=== PATIENT | male | born 1970 | race Caucasian/White ===

== ENCOUNTER 2018-01-05 12:17 | Inpatient (IN) | payer OTHER ==
[~2018-01-05] VITALS: Ht 172.7 cm; Wt 99.8 kg
--- NOTE | 2018-01-05 13:00 | ED GI/GU/ABDOMINAL COMPLAINT ---
History of Present Illness General Chief Complaint: Male Genitourinary Problems Stated Complaint: BLOOD IN URINE, ?KIDNEY STONES Source: patient, family Exam Limitations: no limitations Vital Signs & Intake/Output Vital Signs & Intake/Output Vital Signs Date Time Temp Pulse Resp B/P B/P Pulse O2 O2 Flow FiO2 Mean Ox Delivery Rate 01/05 1452 99.0 82 18 149/86 97 Room Air 01/05 1223 98.0 115 20 139/75 98 Room Air Allergies Coded Allergies: NSAIDS (Non-Steroidal Anti-Inflamma (HEMOPHILIA 01/05/18) morphine (SWELLING 01/05/18) Reconcile Medications Amlodipine Besylate 10 MG TABLET 1 TAB PO DAILY BP (Reported) Ascorbate Calcium (Vitamin C) (Unknown Strength) TABLET (Unknown Dose) PO DAILY SUPPLEMENT (Reported) Cholecalciferol (Vitamin D3) (Vitamin D) (Unknown Strength) TABLET (Unknown Dose) PO DAILY SUPPLEMENT (Reported) Duloxetine Hydrochloride (Cymbalta) 30 MG CAPSULE.DR 90 MG PO DAILY NERVE PAIN (Reported) Factor XIII (Corifact) 1,000 UNIT-1,600 UNIT KIT 0 INJ AD PRN BLEEDING ( Reported) Hydroxyzine HCl (hydrOXYzine HCl) 25 MG TABLET 2 TAB PO BID ANXIETY (Reported ) Lisinopril 20 MG TABLET 1 TAB PO DAILY BP (Reported) Oxycodone HCl 5 MG TABLET 1 TAB PO Q4 HRS NEEDED PRN FLANK PAIN .. Suvorexant (Belsomra) 20 MG TABLET 1 TAB PO QPM SLEEP (Reported) Trazodone HCl 50 MG TABLET 1 TAB PO QPM SLEEP (Reported) Vitamin B Complex 1 EACH CAPSULE 1 CAP PO DAILY SUPPLEMENT (Reported) Triage Note: PT TO ED C/O LEFT FLANK RADIATING TO GROIN SINCE THIS AM. H/O KIDNEY STONES. STATES BLOOD IN URINE. PT HAS H/O HEMOPHELIA PT HAS H/O HEMOPHILIA, CANNOT TAKE NSAIDS. Triage Nurses Notes Reviewed? 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 Has had several such episodes in the past, no history of urological procedures, has required admission on several occasions. Denies fever, chills, n/v, chest pain, SOB, abdominal pain, diarrhea , dysuria. Takes Factor VIII PRN bleeding administered by who is a nurse. Primary urologist is in [place] but moved here recently. Past History Travel History Traveled to [place] past 21 day No Medical History Any Pertinent Medical History? see below for history Cardiovascular: hypertension Renal: kidney stones Blood Disorders: hemophilia Surgical History Surgical History: non-contributory Psychosocial History What is your primary language Irish Tobacco Use: Never used ETOH Use: denies use Illicit Drug Use: denies illicit drug use Family History Hx Contributory? No Review of Systems Review of Systems Constitutional: Reports: no symptoms. EENTM: Reports: no symptoms. Respiratory: Reports: no symptoms. Cardiovascular: Reports: no symptoms. GI: Reports: no symptoms. Genitourinary: Reports: no symptoms. Musculoskeletal: Reports: no symptoms. Skin: Reports: no symptoms. Neurological/Psychological: Reports: no symptoms. Hematologic/Endocrine: Reports: no symptoms. Immunologic/Allergic: Reports: no symptoms. All Other Systems: Reviewed and Negative Physical Exam Physical Exam General Appearance: well developed/nourished, moderate distress Head: atraumatic, normal appearance Eyes: Bilateral: normal appearance, normal inspection. Ears, Nose, Throat, Mouth: hearing grossly normal, moist mucous membrane Neck: normal inspection, supple, full range of motion Respiratory: normal breath sounds, chest non-tender, no respiratory distress Cardiovascular: regular rate/rhythm Gastrointestinal: soft, Left CVA tenderness Back: normal inspection, normal range of motion, CVA tenderness (L) Extremities: normal range of motion Neurologic/Psych: awake, alert, oriented x 3, normal mood/affect Skin: intact, normal color, warm/dry Core Measures ACS in differential dx? No Sepsis Present: No Sepsis Focused Exam Completed? No Progress Differential Diagnosis: AAA, AMI, appendicitis, biliary colic, bowel obstruction , colon cancer, cholecystitis, diverticulitis, epididymitis, esophageal varices, gastritis, hepatitis, hernia, hemorrhoids, ischemic bowel, inflamm bowel dis, Manuela-Caty tear, orchitis, pancreatitis, prostatitis, peptic ulcer, PUD/GERD, perforated viscous, pyelonephritis, SBO, STD, testicular torsion, ureterolithiasis, urinary retention, urethritis, UTI/pyelo Plan of Care: Orders Procedure Date/time Status Regular Diet 01/06 B Active ED Holding Orders 01/05 161 Active Admit to inpatient 01/05 1612 Active Vital Signs 01/05 1612 Active Code Status 01/05 1612 Active COMPREHENSIVE METABOLIC PANEL 01/05 1314 Complete CBC WITHOUT DIFFERENTIAL 01/05 1314 Complete CULTURE,URINE 01/05 1310 Active URINALYSIS 01/05 1226 Complete Current Medications Sig/Antonia Start time Last Medication Dose Stop Time Status Admin Non-Formulary 0 SEE ADMIN CRITERIA 01/05 161 UNVr Medication (NON FORMULARY) Laboratory Tests 01/05/18 1333: Anion Gap 9, Estimated GFR > 60, BUN/Creatinine Ratio 13.3, Glucose 84, Calcium 8.8, Total Bilirubin 0.3, AST 16 L, ALT 32, Alkaline Phosphatase 64, Total Protein 5.7 L, Albumin 3.5, Globulin 2.2, Albumin/Globulin Ratio 1.6, CBC w Diff NO MAN DIFF REQ, RBC 4.05 L, MCV 76.5 L, MCH 24.0 L, MCHC 31.4 L, RDW 15.7 H, MPV 6.9 L, Gran % 62.5, Lymphocytes % 22.3, Monocytes % 8.8, Eosinophils % 5.2 H, Basophils % 1.2, Absolute Granulocytes 2.3, Absolute Lymphocytes 0.8 L, Absolute Monocytes 0.3, Absolute Eosinophils 0.2, Absolute Basophils 0 01/05/18 1240: Urine Color BLDY H, Urine Clarity CLDY H, Urine pH 8.0, Ur Specific [place] 1.020, Urine Protein TRACE H, Urine Ketones NEG, Urine Nitrite NEG, Urine Bilirubin NEG, Urine Urobilinogen 0.2, Ur Leukocyte Esterase NEG, Ur Microscopic SEDIMENT EXAMINED, Urine RBC PACKD H, Urine Hemoglobin LARGE H, Urine Glucose NEG Microbiology 01/05 1310 URINE ROUT: Urine Culture - ORD Will admit to medicine. Spoke to Dr. Julien of urology, no acute intervention. SPoke with pharmacy, will give patient's home Factor VIII while inpatient, to be given to pharmacy for nursing administration. Diagnostic Imaging: Viewed by Me: Ultrasound. Discussed w/RAD: Ultrasound. Radiology Impression: PATIENT: LACI FRANCIS PRESENT AGE: 47 PATIENT ACCOUNT NO: [id number] : 70 LOCATION: [facility] ORDERING PHYSICIAN: Micha Hamilton MD SERVICE DATE: 01/05/18-1309 EXAM TYPE: US - US -RENAL/KIDNEY EXAMINATION: US RETROPERITONEAL COMPLETE (RENAL) CLINICAL INFORMATION: Kidney stone history of hemophilia and gross hematuria. Check for obstruction/fluid collection.. COMPARISON: None TECHNIQUE: Real-time imaging of the kidneys and bladder. FINDINGS: RIGHT KIDNEY: 10.8 x 5.9 x 4.3 cm (SAG x AP x TRV). The kidney is normal in size, contour, and echogenicity. Renal cortical thickness is normal. No focal parenchymal lesions. No hydronephrosis. There is a small stone in the upper pole the right kidney measuring 0.3 x 0.2 x 0.2 cm. LEFT KIDNEY: 11.9 x 6.4 x 4.9 cm (SAG x AP x TRV). The kidney is normal in size, contour, and echogenicity. Renal cortical thickness is normal. There is a small stone in the lower pole measuring 0.4 x 0.3 x 0.3 cm. Small cyst is noted in the upper pole measuring 1.5 x 0.9 x 1.4 cm. No hydronephrosis. BLADDER: Well- distended and normal. Bilateral ureteral jets are demonstrated. Prevoid bladder volume is 363 mL. The patient was not able to void and thus a postvoid volume could not be obtained. IMPRESSION: No hydronephrosis or fluid collection. Small nonobstructive bilateral renal calculi. Small left renal cyst. The patient was not able to void and thus a postvoid volume of the bladder could not be obtained.. DICTATED BY: Roger Simons MD DATE/TIME DICTATED:01/05/181456 RELAY ASSOCIATE:PRETTY DATE/TIME TRANSCRIBED:01/05/181456 Initial ED EKG: none Departure Departure Disposition: HOME OR SELF CARE Condition: Stable Clinical Impression Primary Impression: Nephrolithiasis Secondary Impressions: Hemophilia A Referrals: Patient Has No Primary Care Dr (PCP/Family) Departure Forms: Customer Survey General Discharge Information Prescriptions: Current Visit Scripts Oxycodone HCl 1 TAB PO Q4 HRS NEEDED PRN FLANK PAIN #20 TAB .. Admission Note Spoke With: Solitario SHANKS,Marilu Documentation of Exam: Documentation of any treatments & extenuating circumstances including Concerns Regarding Discharge (functional status, medication knowledge or non-compliance, living conditions, etc.) that warrant an admission rather than observation: nephrolithiasis with intractable pain and significant hematuria in the setting of Hemophilia A, will require admission for IV fluids, pain control, IV recombinant Factor VIII, urology and hematology consults, monitoring of Hgb.
[2018-01-05 13:41] LABS: ABSOLUTE BASOPHIL COUNT 0 /CUMM (0.0-0.2); ABSOLUTE EOSINOPHIL COUNT 0.2 /CUMM (0.0-0.7); ABSOLUTE GRANULOCYTE CT 2.3 /CUMM (1.4-6.5); ABSOLUTE LYMPH COUNT 0.8 /CUMM (1.2-3.4); ABSOLUTE MONOCYTE COUNT 0.3 /CUMM (0.10-0.60); BASOPHIL % 1.2 % (0.0-2.0); EOSINOPHIL % 5.2 % (0-5); GRANULOCYTE % 62.5 % (42.2-75.2); MEAN CORPUSCULAR HGB CONC 31.4 G/DL (33.0-37.0); MEAN CORPUSCULAR VOLUME 76.5 FL (80.0-94.0); MEAN PLATELET VOLUME 6.9 FL (7.4-10.4); PLATELET COUNT 329 /CUMM (130-400); RBC DISTRIBUTION WIDTH 15.7 % (11.5-14.5); RED BLOOD CELL CT 4.05 /CUMM (4.70-6.10); WHITE BLOOD CELL COUNT 3.7 /CUMM (4.8-10.8)
--- NOTE | 2018-01-05 15:03 | ULTRASOUND REPORT ---
EXAMINATION: US RETROPERITONEAL COMPLETE (RENAL) CLINICAL INFORMATION: Kidney stone history of hemophilia and gross hematuria. Check for obstruction/fluid collection.. COMPARISON: None TECHNIQUE: Real-time imaging of the kidneys and bladder. FINDINGS: RIGHT KIDNEY: 10.8 x 5.9 x 4.3 cm (SAG x AP x TRV). The kidney is normal in size, contour, and echogenicity. Renal cortical thickness is normal. No focal parenchymal lesions. No hydronephrosis. There is a small stone in the upper pole the right kidney measuring 0.3 x 0.2 x 0.2 cm. LEFT KIDNEY: 11.9 x 6.4 x 4.9 cm (SAG x AP x TRV). The kidney is normal in size, contour, and echogenicity. Renal cortical thickness is normal. There is a small stone in the lower pole measuring 0.4 x 0.3 x 0.3 cm. Small cyst is noted in the upper pole measuring 1.5 x 0.9 x 1.4 cm. No hydronephrosis. BLADDER: Well-distended and normal. Bilateral ureteral jets are demonstrated. Prevoid bladder volume is 363 mL. The patient was not able to void and thus a postvoid volume could not be obtained. IMPRESSION: No hydronephrosis or fluid collection. Small nonobstructive bilateral renal calculi. Small left renal cyst. The patient was not able to void and thus a postvoid volume of the bladder could not be obtained..
[2018-01-05] MEDS ORDERED: LISINOPRIL20 M1 PO (16:21)
[2018-01-05] MEDS ORDERED: AMLODIPINE BESY10 M1 PO (16:21)
[2018-01-05] MEDS ORDERED: BELSOMRA20 M1 PO (16:22)
[2018-01-05] MEDS ORDERED: CYMBALTA30 M1 PO (16:22)
[2018-01-05] MEDS ORDERED: HYDROXYZINE HCL25 M3 PO (16:22)
[2018-01-05] MEDS ORDERED: VITAMIN C500 M6 PO (16:23)
[2018-01-05] MEDS ORDERED: VITAMIN D1000 UNIT PO (16:23)
[2018-01-05] MEDS ORDERED: TRAZODONE HCL50 M1 PO (16:23)
[2018-01-05] MEDS ORDERED: VITAMIN B COMP1 EACH PO (16:24)
--- NOTE | 2018-01-05 16:42 | History & Physical ---
Dillon Chaudhary MD 01/05/18 5730: General Information and HPI MD Statement: I have seen and personally examined LACI FRANCIS and documented this H&P. The patient is a 47 year old M who presented with a patient stated chief complaint of bleeding. Source of Information: patient, family Exam Limitations: no limitations History of Present Illness: 47 year old male with PMH of hemophilia, gastric bypass and recurrent nephrolithiasis presents with complaints of four days of intermittent and progressive left flank pain and hematuria that began yesterday. The patient reports he was first diagnosed with hemophilia in after several complicated hospital courses including 22 unit pRBC transfusion following a charlene en y gastric bypass in [place] and prolonged hospitalization. He also had perioperative hemorrhage with cholecystectomy and liver biopsy. Growing up he frequently had severe slow healing bruising, bleeding with dental care and extractions and frequent nose bleeds. He is one of only two boys in his extended family so the diagnosis was delayed. The patient has had innumerable stones and urological procedures that started shortly after his gastric bypass. He has undergone numerous lithotripsies, stent placements and cystoscopies. He most recently underwent laser lithotripsy and ureteroscopy approximately 4-5 months ago. The patients left flank pain radiates into his groin when he has the urge to urinate and says he has painful gross hematuria associated with urination starting yesterday. He denies any fevers, chills, headache, fatigue dizziness, chest pain, dyspnea, nausea, vomiting, abdominal pain, or diarrhea. Allergies/Medications Allergies: Coded Allergies: NSAIDS (Non-Steroidal Anti-Inflamma (HEMOPHILIA 01/05/18) morphine (SWELLING 01/05/18) Home Med list Amlodipine Besylate 10 MG TABLET 1 TAB PO DAILY BP (Reported) Ascorbate Calcium (Vitamin C) (Unknown Strength) TABLET (Unknown Dose) PO DAILY SUPPLEMENT (Reported) Cholecalciferol (Vitamin D3) (Vitamin D) (Unknown Strength) TABLET (Unknown Dose) PO DAILY SUPPLEMENT (Reported) Duloxetine Hydrochloride (Cymbalta) 30 MG CAPSULE.DR 90 MG PO DAILY NERVE PAIN (Reported) Hydroxyzine HCl (hydrOXYzine HCl) 25 MG TABLET 2 TAB PO BID ANXIETY (Reported ) Lisinopril 20 MG TABLET 1 TAB PO DAILY BP (Reported) Suvorexant (Belsomra) 20 MG TABLET 1 TAB PO QPM SLEEP (Reported) Trazodone HCl 50 MG TABLET 1 TAB PO QPM SLEEP (Reported) Vitamin B Complex 1 EACH CAPSULE 1 CAP PO DAILY SUPPLEMENT (Reported) Compliance With Home Meds: GOOD Past History Travel History Traveled to [place] past 21 day No Medical History Cardiovascular: hypertension Renal: kidney stones Blood Disorders: hemophilia Surgical History Surgical History: cholecystectomy, gastric bypass Past Family/Social History Family History Relations & Conditions if any cousin Hemophilia A Psychosocial History ETOH Use: denies use Illicit Drug Use: denies illicit drug use Exam & Diagnostic Data Last 24 Hrs of Vital Signs/I&O Vital Signs Date Time Temp Pulse Resp B/P B/P Pulse O2 O2 Flow FiO2 Mean Ox Delivery Rate 01/05 1452 99.0 82 18 149/86 97 Room Air 01/05 1223 98.0 115 20 139/75 98 Room Air Intake & Output 01/05 1600 01/05 0800 01/05 0000 Intake Total 1000 Output Total Balance 1000 Intake, IV 1000 Intake, Oral 0 Patient 104.326 kg Weight Weight Reported by Patient Measurement Method Physical Exam General Appearance Alert, Oriented X3, Cooperative, No Acute Distress Cardiovascular Regular Rate, Normal S1, Normal S2, No Murmurs Lungs Clear to Auscultation, Normal Air Movement Abdomen Normal Bowel Sounds, Soft, No Hepatospenomegaly, No Masses, left CVA tenderness, mild LUQ tenderness to deep palpation Extremities No Clubbing, No Cyanosis, No Edema, Normal Pulses Last 24 Hrs of Labs/Joe: Laboratory Tests 01/05/18 1333: Anion Gap 9, Estimated GFR > 60, BUN/Creatinine Ratio 13.3, Glucose 84, Calcium 8.8, Total Bilirubin 0.3, AST 16 L, ALT 32, Alkaline Phosphatase 64, Total Protein 5.7 L, Albumin 3.5, Globulin 2.2, Albumin/Globulin Ratio 1.6, CBC w Diff NO MAN DIFF REQ, RBC 4.05 L, MCV 76.5 L, MCH 24.0 L, MCHC 31.4 L, RDW 15.7 H, MPV 6.9 L, Gran % 62.5, Lymphocytes % 22.3, Monocytes % 8.8, Eosinophils % 5.2 H, Basophils % 1.2, Absolute Granulocytes 2.3, Absolute Lymphocytes 0.8 L, Absolute Monocytes 0.3, Absolute Eosinophils 0.2, Absolute Basophils 0 01/05/18 1240: Urine Color BLDY H, Urine Clarity CLDY H, Urine pH 8.0, Ur Specific [place] 1.020, Urine Protein TRACE H, Urine Ketones NEG, Urine Nitrite NEG, Urine Bilirubin NEG, Urine Urobilinogen 0.2, Ur Leukocyte Esterase NEG, Ur Microscopic SEDIMENT EXAMINED, Urine RBC PACKD H, Urine Hemoglobin LARGE H, Urine Glucose NEG Microbiology 01/05 1310 URINE ROUT: Urine Culture - ORD Diagnostic Data Other Results Renal ultrasound No hydronephrosis or fluid collection. Small nonobstructive bilateral renal calculi. Small left renal cyst. The patient was not able to void and thus a postvoid volume of the bladder could not be obtained. Assessment/Plan Assessment: 47 year old male with PMH of hemophilia, gastric bypass and recurrent nephrolithiasis presents with complaints of four days of intermittent and progressive left flank pain and hematuria that began yesterday. Acute blood loss anemia: h/o hemophilia A obtain coags PTT/PT/INR give recombinant factor VIII nonformulary prescription and repeat coags Trend CBC Monitor for continued bleeding Consider Thomas catheter placement for bladder irrigation Intravascular volume resuscitation with crystalloid, monitor for tachycardia Can check orthostatic blood pressure Hematology consultation placed Nephrolithiasis: Nonobstructing stones on renal ultrasound Urology contacted from the ED, no urgent intervention Parenteral Hydration and analgesia with opioids, NO NSAIDS Outpatient urology follow up Regular diet DVT ppx: ALPs mechanical only with bleeding Full code As Ranked By This Provider Problem List: 1. Nephrolithiasis 2. Hemophilia A 3. Hematuria 4. Acute blood loss anemia Core Measures/Misc (08/12) Acute Coronary Syndrome ACS Diagnosis: No Congestive Heart Failure Congestive Heart Failure Diagnosis No Cerebrovascular Accident CVA/TIA Diagnosis: No VTE (View Protocol) VTE Risk Factors Age>40 No Mechanical VTE Prophylaxis d/t N/A MechProphylax Ordered No VTE Pharm Prophylaxis d/t Medical Contraindication Sepsis (View protocol) Sepsis Present: No Marilu Jerez MD 01/05/18 1806: Attending MD Review Statement Attending Statement Attending MD Statement: examined this patient, discuss w/resident/PA/CHUCKING LATHE OPERATOR, agreed w/resident/PA/CHUCKING LATHE OPERATOR, reviewed EMR data (avail), discussed with nursing, discussed with case mgmt, reviewed images, amended to note Attending Assessment/Plan: 47-year-old male with past medical history significant for hypertension, hemophilia, nephrolithiasis who presented with hematuria. Patient gets these episodes after his gastric bypass 5 years ago when he passes fragments of kidney stones. He started to develop nephrolithiasis after his bypass bilaterally but left more than right. Whenever he passes the stones, it is accompanied with hematuria. He takes recombinant factor VIII which has been prescribed by his faculty member during these episodes. He claims that his is able to get an IV in him at home and give him factor. This time the episode started yesterday and he is complaining of excruciating pain in his left flank area. He is constantly passing blood in the urine with fragments of stone as well as clots. He did report a low-grade fever last night. Currently he is afebrile. He was feeling somewhat nauseous but he wants to eat. Vital Signs Date Time Temp Pulse Resp B/P B/P Pulse O2 O2 Flow FiO2 Mean Ox Delivery Rate 01/05 1731 98.3 87 18 145/92 99 Room Air 01/05 1452 99.0 82 18 149/86 97 Room Air 01/05 1223 98.0 115 20 139/75 98 Room Air on exam; aox3, mild distress 2/2 to pain. cv; s1,s2, rrr resp; clear abd; soft, tender in left flank, bs+ + left CVA tenderness. ext; no edema. Laboratory Tests 01/05 01/05 1755 1333 Chemistry Sodium (137 - 145 mmol/L) 138 Potassium (3.5 - 5.1 mmol/L) 4.5 Chloride (98 - 107 mmol/L) 104 Carbon Dioxide (22 - 30 mmol/L) 26 Anion Gap (5 - 16) 9 BUN (9 - 20 mg/dL) 8 L Creatinine (0.7 - 1.2 mg/dL) 0.6 L Estimated GFR (>60 ml/min) > 60 BUN/Creatinine Ratio (7 - 25 %) 13.3 Glucose (65 - 99 mg/dL) 84 Calcium (8.4 - 10.2 mg/dL) 8.8 Total Bilirubin (0.2 - 1.3 mg/dL) 0.3 AST (17 - 59 U/L) 16 L ALT (21 - 72 U/L) 32 Alkaline Phosphatase (< 127 U/L) 64 Total Protein (6.3 - 8.2 g/dL) 5.7 L Albumin (3.5 - 5.0 g/dL) 3.5 Globulin (1.9 - 4.2 gm/dL) 2.2 Albumin/Globulin Ratio (1.1 - 2.2 %) 1.6 Coagulation PT Pending INR Pending APTT Pending Hematology CBC w Diff NO MAN DIFF REQ WBC (4.8 - 10.8 /CUMM) 3.7 L RBC (4.70 - 6.10 /CUMM) 4.05 L Hgb (14.0 - 18.0 G/DL) 9.7 L Hct (42 - 52 %) 31.0 L MCV (80.0 - 94.0 FL) 76.5 L MCH (27.0 - 31.0 PG) 24.0 L MCHC (33.0 - 37.0 G/DL) 31.4 L RDW (11.5 - 14.5 %) 15.7 H Plt Count (130 - 400 /CUMM) 329 MPV (7.4 - 10.4 FL) 6.9 L Gran % (42.2 - 75.2 %) 62.5 Lymphocytes % (20.5 - 51.1 %) 22.3 Monocytes % (1.7 - 9.3 %) 8.8 Eosinophils % (0 - 5 %) 5.2 H Basophils % (0.0 - 2.0 %) 1.2 Absolute Granulocytes (1.4 - 6.5 /CUMM) 2.3 Absolute Lymphocytes (1.2 - 3.4 /CUMM) 0.8 L Absolute Monocytes (0.10 - 0.60 /CUMM) 0.3 Absolute Eosinophils (0.0 - 0.7 /CUMM) 0.2 Absolute Basophils (0.0 - 0.2 /CUMM) 0 01/05 1240 Urines Urine Color (YEL,AMB,STR) BLDY H Urine Clarity (CLEAR) CLDY H Urine pH (5.0 - 8.0) 8.0 Ur Specific [place] (1.001 - 1.035) 1.020 Urine Protein (NEG,<30 MG/DL) TRACE H Urine Ketones (NEG) NEG Urine Nitrite (NEG) NEG Urine Bilirubin (NEG) NEG Urine Urobilinogen (0.1 - 1.0 EU/dl) 0.2 Ur Leukocyte Esterase (NEG) NEG Ur Microscopic SEDIMENT EXAMINED Urine RBC (0 - 5 /HPF) PACKD H Urine Hemoglobin (NEG) LARGE H Urine Glucose (N MG/DL) NEG Renal US: IMPRESSION: No hydronephrosis or fluid collection. Small nonobstructive bilateral renal calculi. Small left renal cyst. The patient was not able to void and thus a postvoid volume of the bladder could not be obtained. A/P; 47-year-old male with past medical history significant for hypertension, hemophilia, nephrolithiasis, hematuria in the past who is presenting with hematuria and passing renal stones. Patient also has anemia. Baseline H&H is not known. His coagulation studies are pending. Patient will be admitted to medicine floor. His pain will be managed with narcotics. He was given IV Dilaudid which we can continue. We consulted hematology. They give recommendations in terms of giving patient his factor VIII which his is going to bring. We'll monitor his coagulation profile every 4 hours. He can also monitor his CBC frequency. Patient claims that once he receives the factor VIII then episode of hematuria starts to improve. We will monitor the hematuria. Urology will be consulted. Continue the rest of his home medications. Patient will be hydrated with IV fluids. DVT px; ALPS. Full code. David SHANKS,Ismail 01/05/182040: Review of Systems Review of Systems Constitutional: Reports: see HPI. Resident Review Statement Resident Statement: examined this patient, discussed with internet marketing intern, agreed with internet marketing intern Other Findings: 47-year-old male with a past medical history of hypertension, hemophilia, recurrent nephrolithiasis, and hematuria, who presented to the ED complaining of severe left flank pain that started 2 days ago followed by passing stone in urine earlier today. The patient has the same exact presentation have been multiple time in the past. Given that the patient has hemophilia A, he was prescribed factor VIII which she keeps at home in case of active bleeding. Plan * We will admit patient to the general medicine floor * We will check PT, PTT, order blood cross and type * The patient will bring factor VIII from home, we will administration as per hematology recommendation(refer to event note) * We will check CBCs every 8 hours * We will consult urology * We will hold antihypertensive medication until hematuria stopped her blood pressure increase * We will continue the rest of home medications Regular diet DVT prophylaxis with Alps without pharmacological given the active bleed Full code
--- NOTE | 2018-01-05 18:17 | Event Note ---
Event Note Event Note: The patient has hemophilia A, for which she was prescribed factor VIII and he was instructed to go to the ED and to bring factor VIII with him in case of active bleeding. I spoke with casino floor person over the phone in regard of medication administration instructions. Patient will need PTT prior to the administration. PTT should be repeated within 1-4 hours post-administration. PTT is not corrected a second dose should be administered and PTT should be rechecked. The prosthesis should be repeated until PTT correct and bleeding stops.
[2018-01-05 18:18] LABS: PT 10.5 SEC (9.4-12.5); PTT 41 SEC (25-37)
[2018-01-05 20:00] VITALS: BP 138/98
[2018-01-05 23:00] LABS: ABSOLUTE BASOPHIL COUNT 0 /CUMM (0.0-0.2); ABSOLUTE EOSINOPHIL COUNT 0.2 /CUMM (0.0-0.7); ABSOLUTE LYMPH COUNT 1.2 /CUMM (1.2-3.4); ABSOLUTE MONOCYTE COUNT 0.3 /CUMM (0.10-0.60); BASOPHIL % 0.7 % (0.0-2.0); EOSINOPHIL % 5.9 % (0-5); GRANULOCYTE % 53.7 % (42.2-75.2); HEMATOCRIT 28.9 % (42-52); MEAN CORPUSCULAR HGB 24.1 PG (27.0-31.0); MEAN CORPUSCULAR VOLUME 75.3 FL (80.0-94.0); MEAN PLATELET VOLUME 7.3 FL (7.4-10.4); PLATELET COUNT 290 /CUMM (130-400); RBC DISTRIBUTION WIDTH 14.9 % (11.5-14.5); RED BLOOD CELL CT 3.84 /CUMM (4.70-6.10); WHITE BLOOD CELL COUNT 3.8 /CUMM (4.8-10.8)
[2018-01-05 23:08] LABS: PT 10.7 SEC (9.4-12.5); PTT 29 SEC (25-37)
[2018-01-06 03:30] LABS: ABSOLUTE BASOPHIL COUNT 0 /CUMM (0.0-0.2); ABSOLUTE EOSINOPHIL COUNT 0.2 /CUMM (0.0-0.7); ABSOLUTE GRANULOCYTE CT 1.6 /CUMM (1.4-6.5); ABSOLUTE LYMPH COUNT 1.3 /CUMM (1.2-3.4); ABSOLUTE MONOCYTE COUNT 0.3 /CUMM (0.10-0.60); BASOPHIL % 0.9 % (0.0-2.0); EOSINOPHIL % 6.5 % (0-5); GRANULOCYTE % 45.7 % (42.2-75.2); HEMATOCRIT 28.1 % (42-52); MEAN CORPUSCULAR HGB 24.1 PG (27.0-31.0); MEAN CORPUSCULAR HGB CONC 31.7 G/DL (33.0-37.0); MEAN CORPUSCULAR VOLUME 76.1 FL (80.0-94.0); MEAN PLATELET VOLUME 6.7 FL (7.4-10.4); PLATELET COUNT 286 /CUMM (130-400); RBC DISTRIBUTION WIDTH 15.6 % (11.5-14.5); WHITE BLOOD CELL COUNT 3.5 /CUMM (4.8-10.8)
[2018-01-06 03:39] LABS: PT 10.4 SEC (9.4-12.5); PTT 31 SEC (25-37)
[2018-01-06 07:03] VITALS: BP 136/94
[2018-01-06 08:06] LABS: ABSOLUTE BASOPHIL COUNT 0 /CUMM (0.0-0.2); ABSOLUTE EOSINOPHIL COUNT 0.2 /CUMM (0.0-0.7); ABSOLUTE GRANULOCYTE CT 2.1 /CUMM (1.4-6.5); ABSOLUTE LYMPH COUNT 0.9 /CUMM (1.2-3.4); ABSOLUTE MONOCYTE COUNT 0.3 /CUMM (0.10-0.60); BASOPHIL % 0.8 % (0.0-2.0); EOSINOPHIL % 6.9 % (0-5); GRANULOCYTE % 59.3 % (42.2-75.2); HEMATOCRIT 27.7 % (42-52); MEAN CORPUSCULAR HGB 24.6 PG (27.0-31.0); MEAN CORPUSCULAR HGB CONC 32.3 G/DL (33.0-37.0); MEAN CORPUSCULAR VOLUME 76.3 FL (80.0-94.0); MEAN PLATELET VOLUME 7.4 FL (7.4-10.4); PLATELET COUNT 258 /CUMM (130-400); RBC DISTRIBUTION WIDTH 15.6 % (11.5-14.5); RED BLOOD CELL CT 3.63 /CUMM (4.70-6.10); WHITE BLOOD CELL COUNT 3.6 /CUMM (4.8-10.8)
--- NOTE | 2018-01-06 09:05 | PN- Housestaff ---
See Addendum Subjective Follow-up For: hematuria nephrolithiasis hemophilia Subjective: hematuria improved overnight after factor VIII administration x 2 afebrile, still complaining of severe left flank pain Review of Systems Constitutional: Reports: see HPI. Objective Last 24 Hrs of Vital Signs/I&O Vital Signs Date Time Temp Pulse Resp B/P B/P Pulse O2 O2 Flow FiO2 Mean Ox Delivery Rate 01/06 0703 97.8 64 18 136/94 99 01/05 2000 98.0 79 19 138/98 98 Room Air 01/05 1858 97.4 105 18 116/82 98 Room Air 01/05 1731 98.3 87 18 145/92 99 Room Air 01/05 1452 99.0 82 18 149/86 97 Room Air 01/05 1223 98.0 115 20 139/75 98 Room Air Intake & Output 01/06 1600 01/06 0800 01/06 0000 Intake Total 800 440 Output Total 590 Balance 210 440 Intake, IV 800 200 Intake, Oral 240 Number 0 Bowel Movements Output, Urine 590 Patient 99.79 kg Weight Weight Reported by Patient Measurement Method Physical Exam General Appearance: Alert, Oriented X3, Cooperative, No Acute Distress Cardiovascular: Regular Rate, Normal S1, Normal S2, No Murmurs Lungs: Clear to Auscultation, Normal Air Movement Abdomen: Normal Bowel Sounds, Soft, No Tenderness, No Masses, Left CVA tenderness Extremities: No Clubbing, No Cyanosis, No Edema, Normal Pulses Current Medications: Current Medications Sig/Antonia Start time Last Medication Dose Route Stop Time Status Admin Duloxetine HCl 90 MG DAILY 01/06 1000 AC 01/06 PO 1037 Hydromorphone HCl 2 MG Q2 HRS NEEDED PRN 01/05 2200 AC 01/06 IV 1037 Hydromorphone HCl 1 MG Q2 HRS NEEDED PRN 01/05 2100 DC IV Hydromorphone HCl 1 MG Q4P PRN 01/05 1930 DC 01/05 IV 2032 Hydromorphone HCl 2 MG ONCE ONE 01/05 1845 CAN PO 01/05 1846 Hydromorphone HCl 2 MG ONCE PRN 01/05 1845 DC 01/05 IV 01/05 2300 1838 Hydromorphone HCl 0 .STK-MED ONE 01/05 1838 DC .ROUTE Hydromorphone HCl 0 .STK-MED ONE 01/05 1714 DC .ROUTE Hydromorphone HCl 1 MG ONCE ONE 01/05 1700 DC 01/05 IV 01/05 1701 1713 Hydromorphone HCl 0 .STK-MED ONE 01/05 1502 DC .ROUTE Hydromorphone HCl 1 MG ONCE ONE 01/05 1500 DC 01/05 IV 01/05 1501 1507 Hydromorphone HCl 0 .STK-MED ONE 01/05 1406 DC .ROUTE Hydromorphone HCl 1 MG ONCE ONE 01/05 1400 DC 01/05 IV 01/05 1401 1404 Hydromorphone HCl 0 .STK-MED ONE 01/05 1348 DC .ROUTE Hydromorphone HCl 1 MG ONCE ONE 01/05 1330 DC 01/05 IV 01/05 1331 1350 Hydromorphone HCl 0 .STK-MED ONE 01/05 1322 DC .ROUTE Hydromorphone HCl 1 MG ONCE ONE 01/05 1315 DC 01/05 IV 01/05 1316 1324 Hydroxyzine HCl 50 MG BID 01/05 2200 AC 01/06 PO 1037 Non-Formulary 0 SEE ADMIN CRITERIA 01/05 2045 CAN Medication ANY Non-Formulary 0 SEE ADMIN CRITERIA 01/05 204 CAN Medication ANY Non-Formulary 0 SEE ADMIN CRITERIA 01/05 1615 DC Medication ANY Ondansetron HCl 0 .STK-MED ONE 01/05 1321 DC .ROUTE Ondansetron HCl 4 MG ONCE ONE 01/05 1315 DC 01/05 IV 01/05 1316 1324 Sodium Chloride 1,000 ML Q10H 01/05 1715 AC 01/06 IV 0449 Sodium Chloride 1,000 ML BOLUS ONE 01/05 1315 DC 01/05 IV 01/05 1414 1324 Trimethobenzamide HCl 200 MG ONCE ONE 01/06 0500 DC 01/06 IM 01/06 0501 0506 Last 24 Hrs of Lab/Joe Results Last 24 Hrs of Labs/Mics: Laboratory Tests 01/06/18 0615: Anion Gap 9, Estimated GFR > 60, BUN/Creatinine Ratio 11.7, CBC w Diff NO MAN DIFF REQ, RBC 3.63 L, MCV 76.3 L, MCH 24.6 L, MCHC 32.3 L, RDW 15.6 H, MPV 7.4, Gran % 59.3, Lymphocytes % 24.6, Monocytes % 8.4, Eosinophils % 6.9 H, Basophils % 0.8, Absolute Granulocytes 2.1, Absolute Lymphocytes 0.9 L, Absolute Monocytes 0.3, Absolute Eosinophils 0.2, Absolute Basophils 0 01/06/18 0310: PT 10.4, INR 0.99, APTT 31, CBC w Diff NO MAN DIFF REQ, RBC 3.70 L, MCV 76.1 L , MCH 24.1 L, MCHC 31.7 L, RDW 15.6 H, MPV 6.7 L, Gran % 45.7, Lymphocytes % 37.6, Monocytes % 9.3, Eosinophils % 6.5 H, Basophils % 0.9, Absolute Granulocytes 1.6, Absolute Lymphocytes 1.3, Absolute Monocytes 0.3, Absolute Eosinophils 0.2, Absolute Basophils 0 01/05/18 2250: APTT Cancelled, CBC w Diff Cancelled, WBC Cancelled, RBC Cancelled, Hgb Cancelled, Hct Cancelled, MCV Cancelled, MCH Cancelled, MCHC Cancelled, RDW Cancelled, Plt Count Cancelled, MPV Cancelled 01/05/18 2243: PT 10.7, INR 1.02, APTT 29, CBC w Diff NO MAN DIFF REQ, RBC 3.84 L, MCV 75.3 L , MCH 24.1 L, MCHC 32.0 L, RDW 14.9 H, MPV 7.3 L, Gran % 53.7, Lymphocytes % 31.5, Monocytes % 8.2, Eosinophils % 5.9 H, Basophils % 0.7, Absolute Granulocytes 2.0, Absolute Lymphocytes 1.2, Absolute Monocytes 0.3, Absolute Eosinophils 0.2, Absolute Basophils 0 01/05/18 1755: PT 10.5, INR 1.00, APTT 41 H 01/05/18 1333: Anion Gap 9, Estimated GFR > 60, BUN/Creatinine Ratio 13.3, Glucose 84, Calcium 8.8, Total Bilirubin 0.3, AST 16 L, ALT 32, Alkaline Phosphatase 64, Total Protein 5.7 L, Albumin 3.5, Globulin 2.2, Albumin/Globulin Ratio 1.6, CBC w Diff NO MAN DIFF REQ, RBC 4.05 L, MCV 76.5 L, MCH 24.0 L, MCHC 31.4 L, RDW 15.7 H, MPV 6.9 L, Gran % 62.5, Lymphocytes % 22.3, Monocytes % 8.8, Eosinophils % 5.2 H, Basophils % 1.2, Absolute Granulocytes 2.3, Absolute Lymphocytes 0.8 L, Absolute Monocytes 0.3, Absolute Eosinophils 0.2, Absolute Basophils 0 01/05/18 1240: Urine Color BLDY H, Urine Clarity CLDY H, Urine pH 8.0, Ur Specific [place] 1.020, Urine Protein TRACE H, Urine Ketones NEG, Urine Nitrite NEG, Urine Bilirubin NEG, Urine Urobilinogen 0.2, Ur Leukocyte Esterase NEG, Ur Microscopic SEDIMENT EXAMINED, Urine RBC PACKD H, Urine Hemoglobin LARGE H, Urine Glucose NEG Microbiology 01/05 1240 URINE ROUT: Urine Culture - RES Assessment/Plan Assessment: 47 year old male with PMH of hemophilia, gastric bypass and recurrent nephrolithiasis presents with complaints of four days of intermittent and progressive left flank pain and hematuria that began yesterday. Acute blood loss anemia: h/o hemophilia A PTT elevated at 41 on presentation, PT/INR wnl Type and screen, no need for transfusion at this time give recombinant factor VIII x 2 administrations overnight PTT corrected after administration CBC 9.7 on presentation to 8.9 this monring Monitor for continued bleeding Intravascular volume resuscitation with crystalloid Afebrile, no tachycardia or hypotension Hematology consultation placed Nephrolithiasis: Nonobstructing stones on renal ultrasound Urology contacted from the ED, no urgent intervention Parenteral Hydration and analgesia with opioids, NO NSAIDS Outpatient urology follow up Urine culture negative, no antibiotics Continue analgesia dilaudid 2mg IV Q2H PRN Regular diet DVT ppx: ALPs mechanical only with bleeding Full code Problem List: 1. Nephrolithiasis 2. Hemophilia A 3. Hematuria 4. Acute blood loss anemia Pain Ratin Pain Location: left flank Pain Goal: Pain 4 or less Pain Plan: prn Tomorrow's Labs & Rationales: cbc, bep
[2018-01-06 14:52] VITALS: BP 130/82
--- NOTE | 2018-01-06 16:15 | RADIOLOGY REPORT ---
EXAMINATION: ABDOMEN 1 VIEW CLINICAL INFORMATION: Abdominal pain. COMPARISON: None. TECHNIQUE: An AP view of the abdomen is provided. FINDINGS: There is a moderate amount of stool throughout the colon. There are no dilated loops of small bowel. There are no air-fluid levels. No renal calculi are demonstrable. The visualized lung bases are clear. The osseous structures are unremarkable. IMPRESSION: Moderate amount of stool throughout the colon. No evidence for obstruction.
[2018-01-06 18:42] LABS: ABSOLUTE BASOPHIL COUNT 0 /CUMM (0.0-0.2); ABSOLUTE EOSINOPHIL COUNT 0.4 /CUMM (0.0-0.7); ABSOLUTE LYMPH COUNT 1.3 /CUMM (1.2-3.4); ABSOLUTE MONOCYTE COUNT 0.4 /CUMM (0.10-0.60); BASOPHIL % 0.8 % (0.0-2.0); EOSINOPHIL % 7.1 % (0-5); GRANULOCYTE % 59.2 % (42.2-75.2); HEMATOCRIT 31.4 % (42-52); MEAN CORPUSCULAR HGB 24.3 PG (27.0-31.0); MEAN CORPUSCULAR HGB CONC 31.6 G/DL (33.0-37.0); MEAN CORPUSCULAR VOLUME 76.8 FL (80.0-94.0); MEAN PLATELET VOLUME 7.7 FL (7.4-10.4); PLATELET COUNT 304 /CUMM (130-400); RBC DISTRIBUTION WIDTH 15.4 % (11.5-14.5); RED BLOOD CELL CT 4.08 /CUMM (4.70-6.10)
[2018-01-06 21:41] VITALS: BP 122/80
--- NOTE | 2018-01-06 23:11 | Cons- Urology ---
General Information and HPI Consulting Request Date of Consult: 01/06/18 Requested By: Marilu Jerez MD Reason for Consult: Gross hematuria and kidney stones Source of Information: patient Exam Limitations: no limitations History of Present Illness: Patient is a 47-year-old hemophiliac with a history of recurrent kidney stones after gastric bypass. He presented to the ER yesterday complaining of gross hematuria and left flank pain. He has had numerous radiological evaluations including CT scans. He has had multiple urological procedures including lithotripsy and ureteroscopy. Does describe left flank pain radiating to his left groin. He denies any fever/ chills or nausea/vomiting. Allergies/Medications Allergies: Coded Allergies: NSAIDS (Non-Steroidal Anti-Inflamma (HEMOPHILIA 01/05/18) morphine (SWELLING 01/05/18) Home Med List: Amlodipine Besylate 10 MG TABLET 1 TAB PO DAILY BP (Reported) Ascorbate Calcium (Vitamin C) (Unknown Strength) TABLET (Unknown Dose) PO DAILY SUPPLEMENT (Reported) Cholecalciferol (Vitamin D3) (Vitamin D) (Unknown Strength) TABLET (Unknown Dose) PO DAILY SUPPLEMENT (Reported) Duloxetine Hydrochloride (Cymbalta) 30 MG CAPSULE.DR 90 MG PO DAILY NERVE PAIN (Reported) Hydroxyzine HCl (hydrOXYzine HCl) 25 MG TABLET 2 TAB PO BID ANXIETY (Reported ) Lisinopril 20 MG TABLET 1 TAB PO DAILY BP (Reported) Suvorexant (Belsomra) 20 MG TABLET 1 TAB PO QPM SLEEP (Reported) Trazodone HCl 50 MG TABLET 1 TAB PO QPM SLEEP (Reported) Vitamin B Complex 1 EACH CAPSULE 1 CAP PO DAILY SUPPLEMENT (Reported) Current Medications: Current Medications Sig/Antonia Start time Last Medication Dose Route Stop Time Status Admin Duloxetine HCl 90 MG DAILY 01/06 1000 AC 01/06 PO 1037 Hydromorphone HCl 2 MG Q2 HRS NEEDED PRN 01/05 2200 AC 01/06 IV 2105 Hydroxyzine HCl 50 MG BID 01/05 220 AC 01/06 PO 2105 Sodium Chloride 1,000 ML Q10H 01/05 1715 AC 01/06 IV 1705 Trimethobenzamide HCl 200 MG ONCE ONE 01/06 0500 DC 01/06 IM 01/06 0501 0506 Past History Medical History Blood Transfusion Hx: Yes Type of Reaction: Rash/Dermatitis Neurological: migraine EENT: NONE Cardiovascular: hypertension Respiratory: NONE Gastrointestinal: NONE Hepatic: "CLOT ON LIVER" PER PT Renal: kidney stones Musculoskeletal: NONE Psychiatric: anxiety, depression Endocrine: NONE Blood Disorders: hemophilia Cancer(s): NONE 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 Home Services at Home: None Smoking Status: Unknown If Ever Smoked ETOH Use: denies use Illicit Drug Use: denies illicit drug use Review of Systems Review of Systems: See HPI Exam & Diagnostic Data Vital Signs and I&O Vital Signs Date Time Temp Pulse Resp B/P B/P Pulse O2 O2 Flow FiO2 Mean Ox Delivery Rate 01/06 2141 98.6 82 20 122/80 99 Room Air 01/06 1452 98.4 80 20 130/82 97 01/06 0703 97.8 64 18 136/94 99 Intake & Output 01/06 1600 01/06 0800 01/06 0000 01/05 1600 01/05 0800 01/05 0000 Intake Total 1500 458 355 6215 Output Total 590 Balance 1500 050 243 3472 Intake, IV 800 118 706 9372 Intake, Oral 700 240 0 Number 0 Bowel Movements Output, Urine 590 Patient 220 lb 230 lb Weight Weight Reported by Patient Reported by Patient Measurement Method Physical Exam: Obese, soft and nontender. No CVA tenderness. Physical Exam General Appearance: well developed/nourished Head: atraumatic Assessment/Plan Assessment/Plan Gross hematuria, which appears to be resolving after receiving treatment for his hemophilia. His renal ultrasound reveals bilateral small renal stones, but no hydronephrosis. His KUB was done today is negative. At this point, no intervention is warranted for his kidney stones. There is no evidence of obstruction and I suspect his pain will resolve. This possibly is clot colic. This should resolve spontaneously. Dr. Barrett will follow up with the patient. Consult Acknowledgment - Thank you for your consult request.
[2018-01-07 06:58] VITALS: BP 120/94; BP 140/82
[2018-01-07 08:11] LABS: ABSOLUTE BASOPHIL COUNT 0 /CUMM (0.0-0.2); ABSOLUTE EOSINOPHIL COUNT 0.3 /CUMM (0.0-0.7); ABSOLUTE GRANULOCYTE CT 1.8 /CUMM (1.4-6.5); ABSOLUTE LYMPH COUNT 1.3 /CUMM (1.2-3.4); ABSOLUTE MONOCYTE COUNT 0.4 /CUMM (0.10-0.60); BASOPHIL % 0.9 % (0.0-2.0); EOSINOPHIL % 7.4 % (0-5); GRANULOCYTE % 46.4 % (42.2-75.2); HEMATOCRIT 30.3 % (42-52); MEAN CORPUSCULAR HGB 24.4 PG (27.0-31.0); MEAN CORPUSCULAR HGB CONC 31.9 G/DL (33.0-37.0); MEAN CORPUSCULAR VOLUME 76.4 FL (80.0-94.0); MEAN PLATELET VOLUME 7.4 FL (7.4-10.4); PLATELET COUNT 271 /CUMM (130-400); RBC DISTRIBUTION WIDTH 15.5 % (11.5-14.5); RED BLOOD CELL CT 3.96 /CUMM (4.70-6.10); WHITE BLOOD CELL COUNT 3.9 /CUMM (4.8-10.8)
--- NOTE | 2018-01-07 08:52 | PN- Housestaff ---
Jet SHANKS,Dillon 01/07/18 0852: Subjective Follow-up For: hemophilia hematuria nephrolithiasis Subjective: feeling much better, still complaining of some back pain afebrile passed a clot in his urine overnight requiring prn pain meds frequently Review of Systems Constitutional: Reports: see HPI. Objective Last 24 Hrs of Vital Signs/I&O Vital Signs Date Time Temp Pulse Resp B/P B/P Pulse O2 O2 Flow FiO2 Mean Ox Delivery Rate 01/07 0658 98.0 63 20 140/82 98 01/06 2141 98.6 82 20 122/80 99 Room Air 01/06 1452 98.4 80 20 130/82 97 Intake & Output 01/07 1600 01/07 0800 01/07 0000 Intake Total 800 300 Output Total Balance 800 300 Intake, IV 800 300 Physical Exam General Appearance: Alert, Oriented X3, Cooperative, No Acute Distress Cardiovascular: Regular Rate, Normal S1, Normal S2, No Murmurs Lungs: Clear to Auscultation, Normal Air Movement Abdomen: Normal Bowel Sounds, Soft, No Tenderness, No Masses, Left cva tenderness Extremities: No Clubbing, No Cyanosis, No Edema, Normal Pulses Current Medications: Current Medications Sig/Antonia Start time Last Medication Dose Route Stop Time Status Admin Duloxetine HCl 90 MG DAILY 01/06 1000 DCD 01/07 PO 0911 Hydromorphone HCl 1 MG Q4 HRS NEEDED PRN 01/07 0730 DCD 01/07 IV 1003 Hydromorphone HCl 2 MG Q2 HRS NEEDED PRN 01/05 2200 DC 01/07 IV 0708 Hydroxyzine HCl 50 MG BID 01/05 2200 DCD 01/07 PO 0911 Oxycodone HCl 10 MG Q12 01/07 1000 DCD 01/07 PO 01/08 1001 0911 Sodium Chloride 1,000 ML Q10H 01/05 1715 DCD 01/07 IV 0511 Last 24 Hrs of Lab/Joe Results Last 24 Hrs of Labs/Mics: Laboratory Tests 01/07/18 07: Anion Gap 10, Estimated GFR > 60, BUN/Creatinine Ratio 11.7, CBC w Diff NO MAN DIFF REQ, RBC 3.96 L, MCV 76.4 L, MCH 24.4 L, MCHC 31.9 L, RDW 15.5 H, MPV 7.4, Gran % 46.4, Lymphocytes % 34.8, Monocytes % 10.5 H, Eosinophils % 7.4 H, Basophils % 0.9, Absolute Granulocytes 1.8, Absolute Lymphocytes 1.3, Absolute Monocytes 0.4, Absolute Eosinophils 0.3, Absolute Basophils 0 01/06/18 1705: CBC w Diff NO MAN DIFF REQ, RBC 4.08 L, MCV 76.8 L, MCH 24.3 L, MCHC 31.6 L, RDW 15.4 H, MPV 7.7, Gran % 59.2, Lymphocytes % 24.8, Monocytes % 8.1, Eosinophils % 7.1 H, Basophils % 0.8, Absolute Granulocytes 3.0, Absolute Lymphocytes 1.3, Absolute Monocytes 0.4, Absolute Eosinophils 0.4, Absolute Basophils 0 Assessment/Plan Assessment: 47 year old male with PMH of hemophilia, gastric bypass and recurrent nephrolithiasis presents with complaints of four days of intermittent and progressive left flank pain and hematuria that began yesterday. Acute blood loss anemia: h/o hemophilia A PTT elevated at 41 on presentation, PT/INR wnl Type and screen, no need for transfusion at this time give recombinant factor VIII x 2 administrations PTT corrected after administration CBC table Monitor for continued bleeding Intravascular volume resuscitation with crystalloid Afebrile, no tachycardia or hypotension Hematology consultation placed Nephrolithiasis: Nonobstructing stones on renal ultrasound Urology contacted from the ED, no urgent intervention Parenteral Hydration and analgesia with opioids, NO NSAIDS Outpatient urology follow up Urine culture negative, no antibiotics Start oxycodone CR 10mg Q12 and 1mg IV dilaudid Q4H prn Regular diet DVT ppx: ALPs mechanical only with bleeding Full code Stable for discharge with urology follow up and analgesia, CBC stable not continuing to bleed Problem List: 1. Nephrolithiasis 2. Hemophilia A 3. Hematuria 4. Acute blood loss anemia Pain Ratin Pain Location: left flank Pain Goal: Pain 4 or less Pain Plan: prn Tomorrow's Labs & Rationales: none, discharge Micha Hamilton MD 01/07/18 1211: Attending MD Review Statement Attending Statement Attending MD Statement: examined this patient, discuss w/resident/PA/[facility], agreed w/resident/PA/[facility], reviewed EMR data (avail) Attending Assessment/Plan: Pain has resolved, passed two clots yesterday. Patient feels well and wishes to go home. After taking his Factor VIII, he has had no further bleeding. Stable for discharge home, will continue his Factor VIII, will give Oxycodone for any further pain as well as outpatient urology follow up.
[2018-01-07] MEDS ORDERED: [UNRECOGNIZED DRUG - OTHER] INJ ×2 (09:05→09:06)
[2018-01-07] MEDS ORDERED: OXYCODONE HCL5 M1 PO ×3 (09:07→10:50)
--- NOTE | 2018-01-07 09:09 | Patient Discharge Instructions ---
Discharge Instructions General Discharge Information You were seen/treated for: Kidney stones and bleeding Special Instructions: Follow up with your primary care physician, Dr. Ortiz and Dr. Barrett (urology) within 2 weeks of discharge. Please return to the hospital for continuing bleeding. Acute Coronary Syndrome Inclusion Criteria At DC or during hospital stay patient has or had the following: ACS DIAGNOSIS No Discharge Core Measures Meds if any: Prescribed or Continued at Discharge Meds if any: NOT Prescribed or Continued at Discharge Congestive Heart Failure Inclusion Criteria At DC or during hospital stay patient has or had the following: CHF DIAGNOSIS No Discharge Core Measures Meds if any: Prescribed or Continued at Discharge Meds if any: NOT Prescribed or Continued at Discharge Cerebrovascular accident Inclusion Criteria At DC or during hospital stay patient has or had the following: CVA/TIA Diagnosis No Discharge Core Measures Meds if any: Prescribed or Continued at Discharge Meds if any: NOT Prescribed or Continued at Discharge Venous thromboembolism Inclusion Criteria VTE Diagnosis No VTE Type NONE VTE Confirmed by (Test) NONE Discharge Core Measures - Per Current guidelines, there needs to be overlap - treatment for the first 5 days of Warfarin therapy. - If discharged on Warfarin prior to 5 days of - overlap therapy, the patient will need to be - assessed for post discharge needs including - *Post discharge parental anticoagulation - *Warfarin and/or parental anticoagulation education - *Follow up date to check INR post discharge At least 5 days overlap therapy as Inpatient No Meds if any: Prescribed or Continued at Discharge Note: Overlap Therapy is Warfarin and Anticoagulant Meds if any: NOT Prescribed or Continued at Discharge
== END 2018-01-07 12:30 | DRG 693 ==
LOC: ERH 12:17 → 2NB 16:12 → ERHI 16:12 → ENRESERV 17:23 → ENTRNSPT 18:49 → 2NB 19:43 → CMPTRNSPT 19:44 → 2NB 01-07 08:56 → ENPENDDIS 01-07 10:51 → 2NB 01-07 12:30
PROVIDERS: Internal Medicine; Student in an Organized Health Care Education/Training Program
DX: N20.0 Calculus of kidney (principal); D66 Hereditary factor VIII deficiency; D62 Acute posthemorrhagic anemia; R31.0 Gross hematuria; E66.9 Obesity, unspecified; Z68.33 Body mass index [BMI] 33.0-33.9, adult; I10 Essential (primary) hypertension; Z87.442 Personal history of urinary calculi; Z98.84 Bariatric surgery status
CPT/HCPCS: 2NBP; 36415; 74018; 76775; 81001; 82436; 87086; 93005; 93010; J2405; J3250

== ENCOUNTER 2018-01-20 17:15 | Emergency (ER) | payer SELFPAY ==
[~2018-01-20] VITALS: Ht 172.7 cm; Wt 104.3 kg
[~2018-01-20 17:15] MED LIST: AMLODIPINE BESY10 M1 PO; BELSOMRA20 M1 PO; CYMBALTA30 M1 PO; HYDROXYZINE HCL25 M3 PO; LISINOPRIL20 M1 PO; OXYCODONE HCL5 M1 PO; TRAZODONE HCL100 M1 PO; TRAZODONE HCL50 M1 PO; VITAMIN B COMP1 EACH PO; VITAMIN C500 M6 PO; VITAMIN D1000 UNIT PO; [UNRECOGNIZED DRUG - OTHER] INJ
[2018-01-20 17:17] VITALS: BP 113/87
== END 2018-01-20 18:30 | disposition admitted as inpatient to this hospital (09) ==
LOC: ERH 17:15
DX: R31.9 Hematuria, unspecified (principal)
CPT/HCPCS: 87086

== ENCOUNTER 2018-02-06 10:53 | Observation (INO) | payer OTHER ==
[~2018-02-06] VITALS: Ht 172.7 cm; Wt 106.4 kg
--- NOTE | 2018-02-06 11:45 | ED GENERAL ADULT ---
History of Present Illness General Chief Complaint: Male Genitourinary Problems Stated Complaint: BLD IN URINE Source: patient Exam Limitations: no limitations Vital Signs & Intake/Output Vital Signs & Intake/Output Vital Signs Date Time Temp Pulse Resp B/P B/P Pulse O2 O2 Flow FiO2 Mean Ox Delivery Rate 02/06 1659 98.1 92 18 122/74 99 Room Air 02/06 1526 98.0 98 18 120/77 99 Room Air 02/06 1301 97.2 106 18 128/74 99 Room Air 02/06 1204 98 Room Air 02/06 1113 98.8 121 20 136/97 99 Room Air Allergies Coded Allergies: acetaminophen (Severe, LIVER BLEEDING 01/20/18) adhesive (Intermediate, SKIN IRRITATION 02/06/18) NSAIDS (Non-Steroidal Anti-Inflamma (HEMOPHILIA 01/11/18) morphine (SWELLING 01/11/18) Reconcile Medications Amlodipine Besylate 10 MG TABLET 1 TAB PO DAILY BP (Reported) Ascorbate Calcium (Vitamin C) (Unknown Strength) TABLET (Unknown Dose) PO DAILY SUPPLEMENT (Reported) Cholecalciferol (Vitamin D3) (Vitamin D) (Unknown Strength) TABLET (Unknown Dose) PO DAILY SUPPLEMENT (Reported) Duloxetine Hydrochloride (Cymbalta) 30 MG CAPSULE.DR 90 MG PO DAILY NERVE PAIN (Reported) Factor XIII (Corifact) 1,000 UNIT-1,600 UNIT KIT 0 INJ AD PRN BLEEDING ( Reported) Hydroxyzine HCl (hydrOXYzine HCl) 25 MG TABLET 2 TAB PO BID ANXIETY (Reported ) Lisinopril 20 MG TABLET 1 TAB PO DAILY BP (Reported) Oxycodone HCl 5 MG TABLET 1 TAB PO BIDP PRN pain Suvorexant (Belsomra) 20 MG TABLET 1 TAB PO QPM SLEEP (Reported) Trazodone HCl 100 MG TABLET 1 TAB PO QPM SLEEP (Reported) Vitamin B Complex 1 EACH CAPSULE 1 CAP PO DAILY SUPPLEMENT (Reported) Triage Note: PT TO ER C/C RIGHT FLANK PAIN X 48 HRS W/ BRB. HX OF HEMOPHILIA AND KIDNEY STONES. +DYSURIA +NAUSEA Triage Nurses Notes Reviewed? yes Onset: Abrupt Duration: day(s):, constant, getting worse Timing: recent history Injury Environment: home No Modifying Factors: none HPI: 47-year-old male comes into the emergency room for further evaluation of multiple complaints. He has left flank pain wrapping around his abdomen and the blood in his urine. He has had some intermittent chest pain. Denies any fever chills. Intermittent vomiting. Pain is not being managed at home. He has a history of gastric bypass surgery as well as a history of factor VIII deficiency. Patient reports that he has required blood transfusions in the past. He's had increased gross amount of blood in his urine. He was recently admitted to the hospital here for a kidney stones and evaluation by urology. He currently has no insurance due to the fact they just moved from [place] and is in the process of getting [employer] [facility] [place]. (Dakota Anguiano) Past History Travel History Traveled to [facility] past 21 day No Medical History Any Pertinent Medical History? 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 No (Dakota Anguiano) Review of Systems Review of Systems Constitutional: Reports: no symptoms. EENTM: Reports: no symptoms. Respiratory: Reports: no symptoms. Cardiovascular: Reports: no symptoms. GI: Reports: no symptoms. Genitourinary: Reports: see HPI. Musculoskeletal: Reports: no symptoms. Skin: Reports: no symptoms. Neurological/Psychological: Reports: no symptoms. Hematologic/Endocrine: Reports: no symptoms. Immunologic/Allergic: Reports: no symptoms. All Other Systems: Reviewed and Negative (Dakota Anguiano) Physical Exam Physical Exam General Appearance: well developed/nourished, alert, awake, moderate distress Head: atraumatic, normal appearance Eyes: Bilateral: normal appearance, EOMI. Ears, Nose, Throat: normal ENT inspection, hearing grossly normal Neck: normal inspection Respiratory: normal breath sounds, no respiratory distress Cardiovascular: regular rate/rhythm, tachycardia Gastrointestinal: soft Back: normal inspection, CVA tenderness (L) Extremities: normal inspection, no edema Neurologic/Psych: awake, alert, oriented x 3 Skin: intact, normal color Core Measures ACS in differential dx? Yes CVA/TIA Diagnosis: No Sepsis Present: No Sepsis Focused Exam Completed? No (Dakota Anguiano) Progress Differential Diagnoses I considered the following diagnoses in my evaluation of the patient: Kidney stone, IN, PE, UTI, pyelonephritis, orthostatic hypotension, cardiac arrhythmia, Plan of Care: Orders Procedure Date/time Status Heart Healthy Diet 02/06 D Active Patient Data 02/[address] in observation 02/06 1443 Active ED Holding Orders 02/06 1443 Active Vital Signs 02/06 1443 Active Code Status 02/06 1443 Active Intake & Output 02/06 1202 Active TYPE & SCREEN (NOT X-MATCH) 02/06 1144 Complete TROPONIN LEVEL 02/06 1135 Complete PARTIAL THROMBOPLASTIN TIME 02/06 1135 Complete PROTHROMBIN TIME 02/06 1135 Complete COMPREHENSIVE METABOLIC PANEL 02/06 1135 Complete CBC WITHOUT DIFFERENTIAL 02/06 1135 Complete CULTURE,URINE 02/06 1114 Active URINALYSIS 02/06 1114 Complete EKG 02/06 1114 Active Telemetry/Mechanical Drafter 02/06 UNK Active Current Medications Sig/Antonia Start time Last Medication Dose Stop Time Status Admin Hydromorphone HCl 2 MG ONCE PRN 02/06 1215 AC 02/06 (Dilaudid) 02/06 1815 1215 Hydromorphone HCl 1 MG ONCE ONE 02/06 1200 CAN (Dilaudid) 02/06 1201 Laboratory Tests 02/06/18 1257: Urine Color ORANG H, Urine Clarity HAZY H, Urine pH 6.0, Ur Specific [place] 1.025, Urine Protein 30 H, Urine Ketones NEG, Urine Nitrite NEG, Urine Bilirubin NEG, Urine Urobilinogen 1.0, Ur Leukocyte Esterase NEG, Ur Microscopic SEDIMENT EXAMINED, Urine RBC >75 H, Ur Epithelial Cells RARE, Urine Crystals 1+ CA OX H, Urine Mucus FEW, Urine Hemoglobin LARGE H, Urine Glucose 250 H 02/06/18 1151: Anion Gap 9, Estimated GFR > 60, BUN/Creatinine Ratio 8.6, Glucose 89, Calcium 9.4, Total Bilirubin 0.6, AST 16 L, ALT 33, Alkaline Phosphatase 61, Troponin I < 0.01, Total Protein 6.0 L, Albumin 3.7, Globulin 2.3, Albumin/Globulin Ratio 1.6, PT 10.6, INR 0.97, APTT 38 H, CBC w Diff NO MAN DIFF REQ, RBC 4.23 L, MCV 72.9 L, MCH 23.6 L, MCHC 32.4 L, RDW 16.1 H, MPV 7.3 L, Gran % 63.6, Lymphocytes % 18.9 L, Monocytes % 14.7 H, Eosinophils % 2.3, Basophils % 0.5, Absolute Granulocytes 3.3, Absolute Lymphocytes 1.0 L, Absolute Monocytes 0.8 H, Absolute Eosinophils 0.1, Absolute Basophils 0 Microbiology 02/06 1257 URINE ROUT: Urine Culture - RECD Diagnostic Imaging: Viewed by Me: Radiology Read, Ultrasound. Discussed w/RAD: Radiology Read, Ultrasound. Radiology Impression: PATIENT: LACI FRANCIS PRESENT AGE: 47 PATIENT ACCOUNT NO: [id number] : 70 LOCATION: [facility] ORDERING PHYSICIAN: Dakota ECHEVARRIA SERVICE DATE: 02/06/18 EXAM TYPE: US - US -RENAL/KIDNEY EXAMINATION: US RETROPERITONEAL COMPLETE (RENAL) CLINICAL INFORMATION: Left flank pain. COMPARISON: CT from 01/11/2018. TECHNIQUE: Real- time imaging of the kidneys and bladder. FINDINGS: RIGHT KIDNEY: 12.7 x 6 x 5.8 cm (SAG x AP x TRV). The kidney is normal in size, contour, and echogenicity. Renal cortical thickness is normal. No calculi. No hydronephrosis. There is a midpole 0.5 cm simple cyst. There is an upper pole 1.4 cm simple cyst. LEFT KIDNEY: 1.8 x 6.4 x 6.4 cm (SAG x AP x TRV). The kidney is normal in size, contour, and echogenicity. Renal cortical thickness is normal. No hydronephrosis. There is an upper pole 1.5 cm simple cyst. There is a 0.3 cm lower pole calculus. BLADDER: Partially distended. Bilateral ureteral jets are not demonstrated. IMPRESSION: No hydronephrosis. 0.3 cm nonobstructing left lower pole renal calculus. Bilateral simple renal cysts. DICTATED BY: Suze SHANKS,Jair DATE/TIME DICTATED:03/14/18 / 1335 SLAB WORKER: PRETTY DATE/TIME TRANSCRIBED:02/06/181334 CONFIDENTIAL, DO NOT COPY WITHOUT APPROPRIATE AUTHORIZATION. <Electronically signed in Other Vendor System> SIGNED BY: Jair Arciniega MD 02/06/18 1343, PATIENT: LACI FRANCIS PRESENT AGE: 47 PATIENT ACCOUNT NO: [id number] : 70 LOCATION: [facility] ORDERING PHYSICIAN: Dakota ECHEVARRIA SERVICE DATE: 02/06/18 EXAM TYPE: RAD - XRY-CHEST XRAY, TWO VIEWS EXAMINATION: XR CHEST CLINICAL INFORMATION: Chest pain COMPARISON: None TECHNIQUE: 2 views of the chest were obtained. FINDINGS: The lungs are well-inflated and clear. Trachea is midline in position. No evidence of interstitial disease, focal consolidation, mass, pneumothorax or pleural effusion. The cardiomediastinal silhouette and pulmonary petty have normal size and contour. The examined bones of the thorax are intact. The examined upper abdomen is unremarkable. IMPRESSION : No acute cardiopulmonary findings. DICTATED BY: Charles Lucas MD DATE/TIME DICTATED:02/06/181248 SLAB WORKER:PRETTY DATE/TIME TRANSCRIBED:1248 CONFIDENTIAL, DO NOT COPY WITHOUT APPROPRIATE AUTHORIZATION. < Electronically signed in Other Vendor System> SIGNED BY: Charles Lucas MD 02/06/18 1251 Initial ED EKG: normal sinus rhythm, RBBB, nonspecific ST T wave chg Prior EKG: changed (Dakota Anguiano) Departure Departure Disposition: STILL A PATIENT Condition: Stable Clinical Impression Primary Impression: Acute electrocardiogram changes Secondary Impressions: Hematuria, Renal colic Referrals: Patient Has No Primary Care Dr (PCP/Family) Departure Forms: Customer Survey General Discharge Information Admission Note Spoke With: Abigail Zurita MD Documentation of Exam: Documentation of any treatments & extenuating circumstances including Concerns Regarding Discharge (functional status, medication knowledge or non-compliance, living conditions, etc.) that warrant an admission rather than observation: Cardiac telemetry. Serial EKGs. Serial troponins. Cardiac consultation. Renal consultation. IV pain control. Repeat CBCs. (Dakota Anguiano) PA/LOG WASHER Co-Sign Statement Statement: ED Attending supervision documentation- [X] I saw and evaluated the patient. I have also reviewed all the pertinent lab results and diagnostic results. I agree with the findings and the plan of care as documented in the PA's/LOG WASHER's documentation. [X] I have reviewed the ED Record and agree with the PA's/LOG WASHER's documentation. [] Additions or exceptions (if any) to the PAs/LOG WASHER's note and plan are summarized below: [TELE OBS FOR NEW LBBB, SERIAL ENZYMES, TELE MONITORING, CARDIOLOGY EVALUATION] (Marcos SHANKS,Isai Blank) Critical Care Note Critical Care Note Critical Care Time: non-applicable (Joseph ECHEVARRIA,Dakota)
[2018-02-06 12:04] LABS: ABSOLUTE BASOPHIL COUNT 0 /CUMM (0.0-0.2); ABSOLUTE EOSINOPHIL COUNT 0.1 /CUMM (0.0-0.7); ABSOLUTE GRANULOCYTE CT 3.3 /CUMM (1.4-6.5); ABSOLUTE MONOCYTE COUNT 0.8 /CUMM (0.10-0.60); BASOPHIL % 0.5 % (0.0-2.0); EOSINOPHIL % 2.3 % (0-5); GRANULOCYTE % 63.6 % (42.2-75.2); HEMATOCRIT 30.8 % (42-52); MEAN CORPUSCULAR HGB 23.6 PG (27.0-31.0); MEAN CORPUSCULAR HGB CONC 32.4 G/DL (33.0-37.0); MEAN CORPUSCULAR VOLUME 72.9 FL (80.0-94.0); MEAN PLATELET VOLUME 7.3 FL (7.4-10.4); PLATELET COUNT 307 /CUMM (130-400); RBC DISTRIBUTION WIDTH 16.1 % (11.5-14.5); RED BLOOD CELL CT 4.23 /CUMM (4.70-6.10); WHITE BLOOD CELL COUNT 5.2 /CUMM (4.8-10.8)
[2018-02-06 12:23] LABS: PT 10.6 SEC (9.4-12.5); PTT 38 SEC (25-37)
--- NOTE | 2018-02-06 12:53 | RADIOLOGY REPORT ---
EXAMINATION: XR CHEST CLINICAL INFORMATION: Chest pain COMPARISON: None TECHNIQUE: 2 views of the chest were obtained. FINDINGS: The lungs are well-inflated and clear. Trachea is midline in position. No evidence of interstitial disease, focal consolidation, mass, pneumothorax or pleural effusion. The cardiomediastinal silhouette and pulmonary petty have normal size and contour. The examined bones of the thorax are intact. The examined upper abdomen is unremarkable. IMPRESSION: No acute cardiopulmonary findings.
--- NOTE | 2018-02-06 13:43 | ULTRASOUND REPORT ---
EXAMINATION: US RETROPERITONEAL COMPLETE (RENAL) CLINICAL INFORMATION: Left flank pain. COMPARISON: CT from 01/11/2018. TECHNIQUE: Real-time imaging of the kidneys and bladder. FINDINGS: RIGHT KIDNEY: 12.7 x 6 x 5.8 cm (SAG x AP x TRV). The kidney is normal in size, contour, and echogenicity. Renal cortical thickness is normal. No calculi. No hydronephrosis. There is a midpole 0.5 cm simple cyst. There is an upper pole 1.4 cm simple cyst. LEFT KIDNEY: 1.8 x 6.4 x 6.4 cm (SAG x AP x TRV). The kidney is normal in size, contour, and echogenicity. Renal cortical thickness is normal. No hydronephrosis. There is an upper pole 1.5 cm simple cyst. There is a 0.3 cm lower pole calculus. BLADDER: Partially distended. Bilateral ureteral jets are not demonstrated. IMPRESSION: No hydronephrosis. 0.3 cm nonobstructing left lower pole renal calculus. Bilateral simple renal cysts.
--- NOTE | 2018-02-06 14:58 | History & Physical ---
Yahaira Rouse 02/06/18 1457: General Information and HPI MD Statement: I have seen and personally examined LACI ERWIN and documented this H&P. The patient is a 47 year old M who presented with a patient stated chief complaint of [Flank Pain]. Source of Information: patient, family, old records Exam Limitations: no limitations History of Present Illness: Mr. Erwin is a 47-year-old male w/ PMH of Hemophillia A, recurrent kidney stones, Anxiety/Depression, Gastro-bypass in 2011, presented to ER with flank pain x 48hrs, hematuria, dysuria, nausea,and incidental findings of EKG change. Patient reported he was first diagnosed with hemophilia in 2013/2014 after several complicated hospital courses including 22 unit pRBC transfusion following a charlene en y gastric bypass in [place] and prolonged hospitalization in intensive care. He also had perioperative hemorrhage with cholecystectomy and liver biopsy. Growing up he frequently had severe slow healing bruising, bleeding with dental care and extractions and frequent nose bleeds. After the gastric bypass, he has had innumerable stones and urological procedures that started immediately after his gastric bypass. He has undergone numerous lithotripsies, stent placements and cystoscopies for reported calcium oxalate stones. He most recently underwent laser lithotripsy and ureteroscopy approximately 4-5 months ago. Patient was last seen in 12/2017 with similar complaints at [place] and was treated with Factor VIII brought from home and was sent home once symptoms resolved. Patient was supposed to follow up with Dr. Ortiz and Dr. Barrett however his insurance was not effective as expected. 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 Also, Patient and complained that patient had experienced "whiteout" every time he stood up, despite adequate fluid intake of 2L daily. Patient endorsed intermittent chest pain/palpitation, however denied fever/night sweat/weight change/mood change/insomnia, dietary/appetite change. Patient denied cough/SOB/exercise intolerance/bowel movement abnormality, or other skin/musculoskeletal/neurological disorders. Allergies/Medications Allergies: Coded Allergies: acetaminophen (Severe, LIVER BLEEDING 01/20/18) adhesive (Intermediate, SKIN IRRITATION 02/06/18) NSAIDS (Non-Steroidal Anti-Inflamma (HEMOPHILIA 01/11/18) morphine (SWELLING 01/11/18) Home Med list Amlodipine Besylate 10 MG TABLET 1 TAB PO DAILY BP (Reported) Ascorbate Calcium (Vitamin C) (Unknown Strength) TABLET (Unknown Dose) PO DAILY SUPPLEMENT (Reported) Cholecalciferol (Vitamin D3) (Vitamin D) (Unknown Strength) TABLET (Unknown Dose) PO DAILY SUPPLEMENT (Reported) Duloxetine Hydrochloride (Cymbalta) 30 MG CAPSULE.DR 90 MG PO DAILY NERVE PAIN (Reported) Factor XIII (Corifact) 1,000 UNIT-1,600 UNIT KIT 0 INJ AD PRN BLEEDING ( Reported) Hydroxyzine HCl (hydrOXYzine HCl) 25 MG TABLET 2 TAB PO BID ANXIETY (Reported ) Lisinopril 20 MG TABLET 1 TAB PO DAILY BP (Reported) Oxycodone HCl 5 MG TABLET 1 TAB PO BIDP PRN pain Suvorexant (Belsomra) 20 MG TABLET 1 TAB PO QPM SLEEP (Reported) Trazodone HCl 100 MG TABLET 1 TAB PO QPM SLEEP (Reported) Vitamin B Complex 1 EACH CAPSULE 1 CAP PO DAILY SUPPLEMENT (Reported) Past History Travel History Traveled to [place] past 21 day No Medical History Neurological: migraine EENT: NONE Cardiovascular: hypertension Respiratory: NONE Gastrointestinal: NONE Hepatic: "CLOT ON LIVER" PER PT Renal: kidney stones Musculoskeletal: NONE Psychiatric: anxiety, depression Endocrine: NONE Blood Disorders: hemophilia Cancer(s): NONE 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 Exam & Diagnostic Data Last 24 Hrs of Vital Signs/I&O Vital Signs Date Time Temp Pulse Resp B/P B/P Pulse O2 O2 Flow FiO2 Mean Ox Delivery Rate 02/06 1800 98.7 73 18 130/82 95 Room Air 02/06 1659 98.1 92 18 122/74 99 Room Air 02/06 1526 98.0 98 18 120/77 99 Room Air 02/06 1301 97.2 106 18 128/74 99 Room Air 02/06 1204 98 Room Air 02/06 1113 98.8 121 20 136/97 99 Room Air Intake & Output 02/06 1600 02/06 0800 02/06 0000 Intake Total 1000 Output Total 300 Balance 700 Intake, IV 1000 Output, Urine 300 Patient 102.058 kg Weight Weight Reported by Patient Measurement Method Physical Exam General Appearance Alert, Oriented X3, Cooperative, Mild Distress Skin No Rashes, No Breakdown, No Significant Lesion Skin Temp/Moisture Exam: Warm/Dry Sepsis Skin Exam (color): Normal for Ethnicity HEENT Atraumatic, PERRLA Neck Supple, No JVD Cardiovascular Regular Rate, Tachy Lungs Clear to Auscultation, Normal Air Movement Abdomen Normal Bowel Sounds, Soft, BL flank pain, CVA tenderness BL Neurological Normal Speech Extremities No Cyanosis, No Edema Last 24 Hrs of Labs/Joe: Laboratory Tests 02/06/18 1257: Urine Color ORANG H, Urine Clarity HAZY H, Urine pH 6.0, Ur Specific Grayson 1.025, Urine Protein 30 H, Urine Ketones NEG, Urine Nitrite NEG, Urine Bilirubin NEG, Urine Urobilinogen 1.0, Ur Leukocyte Esterase NEG, Ur Microscopic SEDIMENT EXAMINED, Urine RBC >75 H, Ur Epithelial Cells RARE, Urine Crystals 1+ CA OX H, Urine Mucus FEW, Urine Hemoglobin LARGE H, Urine Glucose 250 H 02/06/18 1151: Anion Gap 9, Estimated GFR > 60, BUN/Creatinine Ratio 8.6, Glucose 89, Calcium 9.4, Total Bilirubin 0.6, AST 16 L, ALT 33, Alkaline Phosphatase 61, Troponin I < 0.01, Total Protein 6.0 L, Albumin 3.7, Globulin 2.3, Albumin/Globulin Ratio 1.6, PT 10.6, INR 0.97, APTT 38 H, CBC w Diff NO MAN DIFF REQ, RBC 4.23 L, MCV 72.9 L, MCH 23.6 L, MCHC 32.4 L, RDW 16.1 H, MPV 7.3 L, Gran % 63.6, Lymphocytes % 18.9 L, Monocytes % 14.7 H, Eosinophils % 2.3, Basophils % 0.5, Absolute Granulocytes 3.3, Absolute Lymphocytes 1.0 L, Absolute Monocytes 0.8 H, Absolute Eosinophils 0.1, Absolute Basophils 0 Microbiology 02/06 1257 URINE ROUT: Urine Culture - RECD Assessment/Plan Assessment: Mr. Erwin is a 47-year-old male w/ PMH of Hemophillia A, recurrent kidney stones, Anxiety/Depression, Gastro-bypass in 2011, presented to ER with flank pain x 48hrs, hematuria, dysuria, nausea,and incidental findings of EKG change. Patient was last seen in 12/2017 with similar complaints at [place] and was treated with Factor VIII brought from home and was sent home once symptoms resolved. Patient was supposed to follow up with Dr. Ortiz and Dr. Barrett however his insurance was not effective as expected. Patient endorsed intermittent chest pain/palpitation, however denied fever/night sweat/weight change/mood change/insomnia, dietary/appetite change. Patient denied cough/SOB/exercise intolerance/bowel movement abnormality, or other skin/musculoskeletal/neurological disorders. On admission, Vitals: stable under room air -CBC: WBC 5.2, H/H 09/24/8, PLT 307, -BMP: unremarkable -Misc:UA +ve for RBC/HgB, urine [id number] -CXR: no acute process -EKG: Sinus tachy with widened QRS resembling RBBB, without specific ST-T changes. -Renal U/S: no hydronephrosis, 0.3cm nonobstructing left lower pole renal calculus. Bilateral simple renal cysts. -Interventions in ER: Dilaudid 2mg IV x 1, IVF, zofran, Morphine 4mg IV x 1 Assessment: Mr. Erwin is a 47-year-old male w/ PMH of Hemophillia A, recurrent kidney stones, Anxiety/Depression, Gastro-bypass in 2011, presented to ER with flank pain x 48hrs, hematuria, dysuria, nausea,and incidental findings of EKG change. Patient had been admitted here and elsewhere with similar complaints of flank pain, hematuria, and his EKG change was not new. Patient would need observation in telemetry for further cardiac findings if any. He would not need factor VIII injection for now unless dropping H/H or unresolved on bleeding. Problem list #Incidental EKG change, RBBB w/ sinus tachycardia #LLQ Ab pain and Bilateral Flank pain w/ hematuria/dysuria, 2/2 recurrent kidney stones #PMH of HTN, Anxiety, depression Plan - Observe on telemetry - Continued pain management w/ Oxycodone 5mg q6 PRN PO, and Morphine 1mg PRN IV. Patient reported that he would need morphine 8mg however would hold for now before adjusting dose. - Continued home meds including amlodipine, lisinopril,trazodone,and duloxetine. - Avoid NSAIDS (bleeding risk/Gastric bypass), acetaminophen (Liver problem), and avoid morphine if patient receives transfusion. - Pending cardiology consult - Urology consult, if needed - Daily monitoring of H/H DVT prophylaxis ALPS only Heart Healthy Diet Full Code As Ranked By This Provider Problem List: 1. Flank pain 2. Hematuria 3. Hemophilia A 4. Nephrolithiasis Core Measures/Misc (08/12) Acute Coronary Syndrome ACS Diagnosis: No Congestive Heart Failure Congestive Heart Failure Diagnosis No Cerebrovascular Accident CVA/TIA Diagnosis: No VTE (View Protocol) VTE Risk Factors Age>40 No Mechanical VTE Prophylaxis d/t N/A MechProphylax Ordered No VTE Pharm Prophylaxis d/t Coagulopathy Sepsis (View protocol) Sepsis Present: No Jaylen Li MD 02/06/18 1512: Resident Review Statement Resident Statement: examined this patient, discussed with qa intern, agreed with qa intern Other Findings: Patient presented with chief complaints of right-sided flank pain, along with dysuria and nausea, lightheadedness, dizziness since last 48 hours. Past medical history Hemophilia/ factor VIII deficiency - Hypertension Kidney stones Migraine Anxiety Depression ED course - Vital signs -temperature 98.8, pulse 121, respiratory 20, blood pressure 136/97, SPO2 99% on room air. Physical exam -alert 3, neck examination no JVD, chest bilateral clear, heart S1-S2 normal, abdomen soft, tender to deep palpation, no Blood workup showed -hemoglobin 10.0 (last hemoglobin 10.4) Hematocrit 30.8, MCV 72.9, platelet count 307,sodium 141, potassium 3.9, chloride 107, anion gap 9, BUN 6, creatinine 0.7, glucose 89, PT/INR 10.6/0.97, APTT 38 He was given IV fluids, Zofran, Dilaudid 2 g. He had 200 cc of urine output which was yellowish but small blood clots. Medication history -on factor VII thousand to 1600 units as needed for bleeding, Assessment and plan - patient is 47-year-old male, with past medical history of hemophilia A/factor VIII deficiency, history of nephrolithiasis had recurrent admissions because of the left-sided flank pain along with hematuria. He was recently admitted in December 2017(01/05/2018-01/07/2018) and was treated for similar complaint with analgesics and factor VIII with resolution of hematuria. Renal ultrasound was showing bilateral nonobstructive nephrolithiasis without hydronephrosis. His pain threshold was very low so required very high doses of opioid medicine.Patient was saying that he was completely all right for 1 week after discharge. Than he started having intermittent hematuria.He does not have health insurance (which will start in February 2018), so he did not follow any urologist. Since last 48 hours he is having severe pain in his back and lower abdomen associated with burning dysuria.He also complains that he felt dizziness and shortness of breath while exertion and he feels that his skin becomes very pale.He requested that he needs opioid pain medicines as he cannot be given acetaminophen/ Tylenol as he had a history of Tylenol hepatotoxicity.he had hx of gastric bypass and tendency to bleed so he cannot be given NSAIDs.He requested that he can tolerate morphine and Dilaudid. On evaluation his blood workup did not show any evidence of infection, his hemoglobin is stable since last visit 10(10.4), although urinalysis did show evidence of RBCs.His EKG was showing wide QRS complex with new onset of right bundle branch block. He denies that any episode of palpitation, chest pain. We will observe the patient to telemetry for overnight monitoring and follow the cardiology recommendation.We will give pain medication according to the pain scale. Plan - New EKG changes -right bundle branch block * We will observe the patient to telemetry floor * We will obtain cardiology consult * We will watch for hemoglobin/bleeding if needed then we will use factor VIII * Pain medication according to the pain scale -avoid NSAIDs/Tylenol; started on tablet oxycodone 5 mg every 4-6 as needed, injection morphine 1 mg IV as needed. Left lower abdominal pain with hematuria. * Will give pain medication according to the pain scale * We will watch for hematuria * Will consider urology if needed Chronic medical condition -hypertension, anxiety, depression * We will continue on his home medications including amlodipine, lisinopril, trazodone, duloxetine as before CODE STATUS -full code Diet -heart healthy diet DVT PPX - MANNY James MD,Jose M 02/06/18 2242: Attending MD Review Statement Attending Statement Attending MD Statement: examined this patient, discuss w/resident/PA/PHOTOENGRAVER, agreed w/resident/PA/PHOTOENGRAVER, reviewed EMR data (avail), discussed with nursing, discussed with case mgmt, amended to note Attending Assessment/Plan: Patient is a 47-year-old male with history of hemophilia A, and chronic Loin Pain with hematuria. He has a history of nonobstructing renal stones and reports having several urologic procedures in the past. Presents with complaints of bilateral lung pain and hematuria. He has had similar admission to this hospital earlier this year. According to the patient his symptoms are chronic and no different from usual. He admits that he has run out of pain medications prescribed for him following his discharge from the hospital earlier this year. He reports that he has been unable to get prescriptions from anyone else in the outpatient setting due to lack of insurance. He also reports that due to the strict opiod laws he is unable to get adequate pain medication in the outpatient setting. His pharmacy Claim History shows that he filled prescriptions for oxycodone earlier this month. Patient reports relocating from [place] last year and states that he was well taking care of him [place] where he used received prescriptions of oxycodone 20-30 mg every 4 hours for pain control. He reports that at present only intravenous pain medications will help him. He is requesting for Dilaudid and states that since the medication makes him nauseous the following day so he would like to receive Phenergan intravenously in addition to the morphine. On evaluation in the emergency room he was found to be tachycardic. This is similar to his presentation any dysuria. EKG showed right bundle branch block. When questioned about symptoms patient reports that he gets dizzy on occasion particularly with position changes. He reports that he was concerned that he may be significantly anemic due to the dizziness so he came to the ER for evaluation in addition to his need for pain medications. He is found to be hemodynamically stable. His hemoglobin level is not significantly lower compared to previous. On examination he has no neurologic deficits. Heart sounds are regular with audible normal. Abdomen is nondistended and soft with normal bowel sounds. He reports bilateral flank tenderness. He has no peripheral edema. Problems: 1. Abnormal EKG 2. Chronic leg pain with hematuria 3. Hemophilia A. 4. Depression Plan: -Place on observation level of care. -Pain control with oxycodone by mouth. May use morphine IV for breakthrough pain. -Patient will need pain management referral upon discharge -He does have hematuria likely related to his nonobstructing renal stones noted on imaging however his hemoglobin level is stable. We'll monitor closely. Transfuse to keep hemoglobin level greater than 7. -DVT prophylaxis with bilateral compression device. -Telemetry monitoring. Obtain echocardiogram. Cardiology consultation for his abnormal EKG.
[2018-02-06 18:00] VITALS: BP 130/82
--- NOTE | 2018-02-06 19:59 | Cons- Cardiology ---
General Information and HPI Consulting Request Date of Consult: 02/07/18 Requested By: Jose M James MD Allergies/Medications Allergies: Coded Allergies: acetaminophen (Severe, LIVER BLEEDING 01/20/18) adhesive (Intermediate, SKIN IRRITATION 02/06/18) NSAIDS (Non-Steroidal Anti-Inflamma (HEMOPHILIA 01/11/18) morphine (SWELLING 01/11/18) Home Med List: Amlodipine Besylate 10 MG TABLET 1 TAB PO DAILY BP (Reported) Ascorbate Calcium (Vitamin C) (Unknown Strength) TABLET (Unknown Dose) PO DAILY SUPPLEMENT (Reported) Cholecalciferol (Vitamin D3) (Vitamin D) (Unknown Strength) TABLET (Unknown Dose) PO DAILY SUPPLEMENT (Reported) Duloxetine Hydrochloride (Cymbalta) 30 MG CAPSULE.DR 90 MG PO DAILY NERVE PAIN (Reported) Factor XIII (Corifact) 1,000 UNIT-1,600 UNIT KIT 0 INJ AD PRN BLEEDING ( Reported) Hydroxyzine HCl (hydrOXYzine HCl) 25 MG TABLET 2 TAB PO BID ANXIETY (Reported ) Lisinopril 20 MG TABLET 1 TAB PO DAILY BP (Reported) Oxycodone HCl 5 MG TABLET 1 TAB PO BIDP PRN pain Suvorexant (Belsomra) 20 MG TABLET 1 TAB PO QPM SLEEP (Reported) Trazodone HCl 100 MG TABLET 1 TAB PO QPM SLEEP (Reported) Vitamin B Complex 1 EACH CAPSULE 1 CAP PO DAILY SUPPLEMENT (Reported) Past History Travel History Traveled to [place] past 21 day No Medical History Neurological: migraine EENT: NONE Cardiovascular: hypertension Respiratory: NONE Gastrointestinal: NONE Hepatic: "CLOT ON LIVER" PER PT Renal: kidney stones Musculoskeletal: NONE Psychiatric: anxiety, depression Endocrine: NONE Blood Disorders: hemophilia Cancer(s): NONE 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 Home Services at Home: None Smoking Status: Unknown If Ever Smoked Assessment/Plan Consult Acknowledgment - Thank you for your consult request.
[2018-02-06 22:37] VITALS: BP 130/70
[2018-02-07 07:00] VITALS: BP 108/68
--- NOTE | 2018-02-07 07:51 | PN-Observation ---
NasimYahaira 02/07/18 0751: Observation Note Observation Note _ I have personally examined LACI ERWIN. him disposition is uncertain at this time. Before a determination can be made, he requires continued observation for the following reasons [Flank pain w/ hematuria]. Assessment/Plan Medical Assessment: Mr. Erwin is a 47-year-old male w/ PMH of Hemophillia A, recurrent kidney stones, Anxiety/Depression, Gastro-bypass in 2011, presented to ER with flank pain x 48hrs, hematuria, dysuria, nausea,and incidental findings of EKG change. Patient had been admitted here and elsewhere with similar complaints of flank pain, hematuria, and his EKG change was not new. Patient would need observation in telemetry for further cardiac findings if any. He would not need factor VIII injection for now unless dropping H/H or unresolved on bleeding. Problem list #Incidental EKG change, RBBB w/ sinus tachycardia #LLQ Ab pain and Bilateral Flank pain w/ hematuria/dysuria, 2/2 recurrent kidney stones #PMH of HTN, Anxiety, depression Plan - Continued pain management w/ Oxycodone 5mg q6 PRN PO, and Morphine 1mg PRN IV. However, patient reported that he would need morphine 8mg for pain control. Pending pain management consult before dose adjustment. - Continued home meds including amlodipine, lisinopril,trazodone,and duloxetine. - Avoid NSAIDS (bleeding risk/Gastric bypass), acetaminophen (Liver problem), and avoid morphine if patient receives transfusion. - Pending cardiology consult - Pending urology consult - Daily monitoring of H/H. Hgb dropped to 8.9 on latest lab. Will start Factor VIII injection at home dose (patient brought from home) DVT prophylaxis ALPS only Heart Healthy Diet Full Code Problem List: 1. Renal colic 2. Acute electrocardiogram changes 3. Flank pain Subjective Follow-up For: #Incidental EKG change, RBBB w/ sinus tachycardia #LLQ Ab pain and Bilateral Flank pain w/ hematuria/dysuria, 2/2 recurrent kidney stones #PMH of HTN, Anxiety, depression, Hemophillia A Tele-Events Since Last Visit: NSR 64-91 Subjective: No overnight event. Patient stated his pain was not adequately controled with current morphine regimen, and rated 7-8/10 for bilateral flank pain. Output urine with esa color slightly hand booked folder and stitcher than yesterday. Denied chest pain but endorsed some palpitation occasionally. No other specific complaint. Review of Systems Constitutional: Reports: see HPI. Objective Last 24 Hrs of Vital Signs/I&O Vital Signs Date Time Temp Pulse Resp B/P B/P Pulse O2 O2 Flow FiO2 Mean Ox Delivery Rate 02/07 0820 69 134/72 02/07 0820 69 134/72 02/07 0700 98.3 69 20 108/68 97 Room Air 02/06 2237 99.3 96 18 130/70 97 02/06 1800 98.7 73 18 130/82 95 Room Air 02/06 1659 98.1 92 18 122/74 99 Room Air 02/06 1526 98.0 98 18 120/77 99 Room Air 02/06 1301 97.2 106 18 128/74 99 Room Air 02/06 1204 98 Room Air Intake & Output 02/07 1600 02/07 0800 02/07 0000 Intake Total 240 Output Total Balance 240 Intake, Oral 240 Patient 107.048 kg Weight Weight Bed scale Measurement Method Physical Exam General Appearance: Alert, Oriented X3, Cooperative, No Acute Distress Cardiovascular: Regular Rate Lungs: Clear to Auscultation, Normal Air Movement Abdomen: Soft, BL flank pain 06/04 Neurological: Normal Speech Extremities: No Edema, Normal Pulses Current Medications: Current Medications Sig/Antonia Start time Last Medication Dose Route Stop Time Status Admin Amlodipine Besylate 10 MG DAILY 02/07 1000 AC 02/07 PO 0820 Duloxetine HCl 90 MG DAILY 02/07 1000 AC 02/07 PO 0819 Hydromorphone HCl 2 MG ONCE PRN 02/06 1215 DC 02/06 IV 02/06 1815 1215 Hydromorphone HCl 1 MG ONCE ONE 02/06 1200 CAN IV 02/06 1201 Hydroxyzine HCl 50 MG BID 02/06 2200 AC 02/07 PO 0819 Lisinopril 20 MG DAILY 02/07 1000 AC 02/07 PO 0820 Morphine Sulfate 1 MG Q4 HRS NEEDED PRN 02/07 0200 AC 02/07 IV 1012 Morphine Sulfate 1 MG Q6-PRN PRN 02/06 1730 DC 02/07 IV 0118 Morphine Sulfate 0 .STK-MED ONE 02/06 1523 DC .ROUTE Morphine Sulfate 4 MG ONCE ONE 02/06 1515 DC 02/06 IV 02/06 1516 1522 Non-Formulary 0 SEE ADMIN CRITERIA 02/07 1045 UNV Medication ANY Ondansetron HCl 0 .STK-MED ONE 02/06 1201 DC .ROUTE Ondansetron HCl 4 MG ONCE ONE 02/06 1145 DC 02/06 IV 02/06 1146 1156 Oxycodone HCl 5 MG Q6-PRN PRN 02/06 1730 AC 02/07 PO 0820 Sodium Chloride 1,000 ML BOLUS ONE 02/06 1145 DC 02/06 IV 02/06 1244 1154 Trazodone HCl 100 MG QPM 02/06 2200 AC 02/07 PO 0004 Last 24 Hrs of Labs/Mics: Laboratory Tests 02/07/18 0643: Anion Gap 10, Estimated GFR > 60, BUN/Creatinine Ratio 11.4, CBC w Diff NO MAN DIFF REQ, RBC 3.78 L, MCV 73.6 L, MCH 23.4 L, MCHC 31.9 L, RDW 16.3 H, MPV 7.9, Gran % 54.0, Lymphocytes % 27.6, Monocytes % 11.3 H, Eosinophils % 5.9 H, Basophils % 1.2, Absolute Granulocytes 2.4, Absolute Lymphocytes 1.2, Absolute Monocytes 0.5, Absolute Eosinophils 0.3, Absolute Basophils 0.1 02/06/18 1257: Urine Color ORANG H, Urine Clarity HAZY H, Urine pH 6.0, Ur Specific [place] 1.025, Urine Protein 30 H, Urine Ketones NEG, Urine Nitrite NEG, Urine Bilirubin NEG, Urine Urobilinogen 1.0, Ur Leukocyte Esterase NEG, Ur Microscopic SEDIMENT EXAMINED, Urine RBC >75 H, Ur Epithelial Cells RARE, Urine Crystals 1+ CA OX H, Urine Mucus FEW, Urine Hemoglobin LARGE H, Urine Glucose 250 H 02/06/18 1151: Anion Gap 9, Estimated GFR > 60, BUN/Creatinine Ratio 8.6, Glucose 89, Calcium 9.4, Total Bilirubin 0.6, AST 16 L, ALT 33, Alkaline Phosphatase 61, Troponin I < 0.01, Total Protein 6.0 L, Albumin 3.7, Globulin 2.3, Albumin/Globulin Ratio 1.6, PT 10.6, INR 0.97, APTT 38 H, CBC w Diff NO MAN DIFF REQ, RBC 4.23 L, MCV 72.9 L, MCH 23.6 L, MCHC 32.4 L, RDW 16.1 H, MPV 7.3 L, Gran % 63.6, Lymphocytes % 18.9 L, Monocytes % 14.7 H, Eosinophils % 2.3, Basophils % 0.5, Absolute Granulocytes 3.3, Absolute Lymphocytes 1.0 L, Absolute Monocytes 0.8 H, Absolute Eosinophils 0.1, Absolute Basophils 0 Microbiology 02/06 1257 URINE ROUT: Urine Culture - RES Jacob SHANKS,Jose M 02/07/18 1133: Observation Note Observation Note _ I have personally examined LACI ERWIN. him disposition is uncertain at this time. Before a determination can be made, he requires continued observation for the following reasons []. Patient seen and examined. Lying comfortably in bed. He does not appear to be in any distress. Patient however reports that his current pain regimen is suboptimal. He reports that he is used receiving intravenous Dilaudid when hospitalized. He states that if he is unable to get IV Dilaudid he will be more satisfied with 8 mg of morphine intravenously. He continues to complain of hematuria. He had a mild drop of his hemoglobin overnight. He is however hemodynamically stable. Recommendations: -Recommend pain management consultation for optimization of his pain regimen. -Recommend urology consultation for reevaluation of his hematuria. -Given his ongoing bleeding with hemoglobin drop recommend administration of factor VIII. -Discontinue telemetry monitoring on downgraded to the general medical service. -Due to his ongoing pain, hematuria with drop in hemoglobin, need for intravenous pain regimen, he is not medically ready for discharge today. He will be observed in the hospital overnight.
[2018-02-07 08:16] LABS: ABSOLUTE BASOPHIL COUNT 0.1 /CUMM (0.0-0.2); ABSOLUTE EOSINOPHIL COUNT 0.3 /CUMM (0.0-0.7); ABSOLUTE GRANULOCYTE CT 2.4 /CUMM (1.4-6.5); ABSOLUTE LYMPH COUNT 1.2 /CUMM (1.2-3.4); ABSOLUTE MONOCYTE COUNT 0.5 /CUMM (0.10-0.60); BASOPHIL % 1.2 % (0.0-2.0); EOSINOPHIL % 5.9 % (0-5); HEMATOCRIT 27.8 % (42-52); MEAN CORPUSCULAR HGB 23.4 PG (27.0-31.0); MEAN CORPUSCULAR HGB CONC 31.9 G/DL (33.0-37.0); MEAN CORPUSCULAR VOLUME 73.6 FL (80.0-94.0); MEAN PLATELET VOLUME 7.9 FL (7.4-10.4); PLATELET COUNT 259 /CUMM (130-400); RBC DISTRIBUTION WIDTH 16.3 % (11.5-14.5); RED BLOOD CELL CT 3.78 /CUMM (4.70-6.10); WHITE BLOOD CELL COUNT 4.4 /CUMM (4.8-10.8)
--- NOTE | 2018-02-07 13:43 | Patient Discharge Instructions ---
Discharge Instructions General Discharge Information Special Instructions: - Please follow up with your receiver dispatcher Dr. Cabrera within 1-2 weeks of discharge. - Please follow up with your primary care physician within 1-2 weeks of discharge. Inform your primary care physician of this admission to [facility]. - Continue your current medications per discharge instructions. - Please watch for these problems: Fever, Chills, Nausea, Vomiting, Shortness of Breath, Productive Cough, Chest Pain/Discomfort, Abdominal Pain, Active Bleeding or Bloody urine/stool. Diet Continue normal diet: Yes Recommended Diet: Heart Healthy Activity Full Activity/No Limits: Yes Activity Self Limited: No Acute Coronary Syndrome Inclusion Criteria At DC or during hospital stay patient has or had the following: ACS DIAGNOSIS No Discharge Core Measures Meds if any: Prescribed or Continued at Discharge Meds if any: NOT Prescribed or Continued at Discharge Congestive Heart Failure Inclusion Criteria At DC or during hospital stay patient has or had the following: CHF DIAGNOSIS No Discharge Core Measures Meds if any: Prescribed or Continued at Discharge Meds if any: NOT Prescribed or Continued at Discharge Cerebrovascular accident Inclusion Criteria At DC or during hospital stay patient has or had the following: CVA/TIA Diagnosis No Discharge Core Measures Meds if any: Prescribed or Continued at Discharge Meds if any: NOT Prescribed or Continued at Discharge Venous thromboembolism Inclusion Criteria VTE Diagnosis No VTE Type NONE VTE Confirmed by (Test) NONE Discharge Core Measures - Per Current guidelines, there needs to be overlap - treatment for the first 5 days of Warfarin therapy. - If discharged on Warfarin prior to 5 days of - overlap therapy, the patient will need to be - assessed for post discharge needs including - *Post discharge parental anticoagulation - *Warfarin and/or parental anticoagulation education - *Follow up date to check INR post discharge At least 5 days overlap therapy as Inpatient No Meds if any: Prescribed or Continued at Discharge Note: Overlap Therapy is Warfarin and Anticoagulant Meds if any: NOT Prescribed or Continued at Discharge
[2018-02-07 13:53] VITALS: BP 132/88
--- NOTE | 2018-02-07 15:37 | ECHOCARDIOGRAM REPORT ---
LACI FRANCIS Age: 47 : 1970 Gender: M Exam Date: 02/07/2018 09:25 Exam Location: 1 [address] Ht (in): 68 Wt (lb): 236 BSA: 2.31 BP: 108 / 68 Ordering Physician: Zaira Boo MD Referring Physician: Zaira Boo MD Technologist: Juaquin Garcia [facility] Room Number: 185-2 Indications: EVALUATION OF ASCENDING AORTA Rhythm: Sinus Technical Quality: Fair FINDINGS Left Ventricle Normal size left ventricle. Borderline to mild concentric left ventricular hypertrophy. No obvious regional wall motion abnormalities. Normal left ventricular ejection fraction visually estimated at 65%. Mildly increased resting left ventricular outflow tract velocity (1.27 m/s). "Pseudonormal" filling pattern of the left ventricle for age (stage 2 diastolic dysfunction). Right Ventricle Normal right ventricular size and function. Right Atrium Normal right atrial size. Left Atrium Normal left atrial size. Mitral Valve Structurally normal mitral valve. No mitral regurgitation. Aortic Valve Structurally normal trileaflet aortic valve. No aortic valve stenosis or regurgitation. Tricuspid Valve Structurally normal tricuspid valve. Trace tricuspid regurgitation. No evidence of pulmonary hypertension. Right ventricular systolic pressure estimated to be within the normal range at 18 mmHg. Pulmonic Valve Pulmonic valve not well visualized, grossly normal. No pulmonic regurgitation. Pericardium No pericardial effusion. Great Vessels Normal size aortic root. Mildly dilated proximal ascending aorta (tube). Normal size inferior vena cava. CONCLUSIONS Normal size left ventricle. Borderline to mild concentric left ventricular hypertrophy. Normal left ventricular ejection fraction visually estimated at 65%. Mildly increased resting left ventricular outflow tract velocity (1.27 m/s). "Pseudonormal" filling pattern of the left ventricle for age (stage 2 diastolic dysfunction). Normal right ventricular size and function. Normal atrial size. Trace tricuspid regurgitation. No evidence of pulmonary hypertension. Mildly dilated proximal ascending aorta (tube). Olman Cabrera M.D. (Electronically Signed) Final Date: 07 February 2018 15:36 MEASUREMENTS (Male / Female) Normal Values 2D ECHO LV Diastolic Diameter PLAX 5.2 cm 4.2 - 5.9 / 3.9 - 5.3 cm LV Systolic Diameter PLAX 3.3 cm 2.1 - 4.0 cm LV Fractional Shortening PLAX 36.5 % 25 - 46 % LV Ejection Fraction 2D Teich 65.9 % IVS Diastolic Thickness 1.0 cm LVPW Diastolic Thickness 1.3 cm LV Relative Wall Thickness 0.4 RV Internal Dim ED PLAX 3.5 cm 1.9 - 3.8 cm LVOT Diameter 2.3 cm Aortic Root Diameter 3.0 cm LA Systolic Diameter LX 3.5 cm 3.0 - 4.0 / 2.7 - 3.8 cm LA Volume 42.0 cm 18 - 58 / 22 - 52 cm Ascending Aorta Diameter 3.7 cm DOPPLER AV Peak Velocity 168.0 cm/s AV Peak Gradient 11.3 mmHg AV Mean Velocity 101.0 cm/s AV Mean Gradient 5.0 mmHg AV Velocity Time Integral 31.5 cm LVOT Peak Velocity 127.0 cm/s LVOT Peak Gradient 6.5 mmHg LVOT Mean Velocity 81.1 cm/s LVOT Mean Gradient 3.0 mmHg LVOT Velocity Time Integral 24.5 cm LVOT Stroke Volume 101.8 cm AV Area Cont Eq vti 3.2 cm AV Area Cont Eq pk 3.1 cm MV Peak Velocity 119.0 cm/s MV Peak Gradient 5.7 mmHg MV Mean Velocity 71.1 cm/s MV Mean Gradient 2.0 mmHg Mitral E Point Velocity 92.3 cm/s Mitral A Point Velocity 95.8 cm/s Mitral E to A Ratio 1.0 MV PHT Velocity 97.7 cm/s MV Deceleration [place] 312.0 cm/s MV Pressure Half Time 93.9 ms MV Area PHT 2.3 cm MV Deceleration Time 380.0 ms TR Peak Velocity 178.0 cm/s TR Peak Gradient 12.7 mmHg Right Atrial Pressure 5.0 mmHg Pulmonary Artery Systolic Pressu 17.7 mmHg Right Ventricular Systolic Press 17.7 mmHg PV Peak Velocity 114.0 cm/s PV Peak Gradient 5.2 mmHg PV Mean Velocity 74.2 cm/s PV Mean Gradient 3.0 mmHg PV Velocity Time Integral 24.5 cm LV E' Lateral Velocity 8.4 cm/s Mitral E to LV E' Lateral Ratio 11.0 LV E' Septal Velocity 7.7 cm/s Mitral E to LV E' Septal Ratio 12.0
--- NOTE | 2018-02-07 16:20 | Cons- Cardiology ---
General Information and HPI Consulting Request Date of Consult: 02/07/18 Requested By: Jose M James MD Reason for Consult: Abnormal ECG. Source of Information: patient, old records Exam Limitations: no limitations History of Present Illness: Mr. Torin Erwin is a 47-year-old male with a history of anxiety/ depression, migraine headache, hypertension, hemophilia A diagnosed ~2013 in [place] during a complicated postoperative course ([id number]) requiring multiple units of pRBCs (22 units) with subsequent frequent bouts of nephrolithiasis requiring numerous cystoscopies, stents, lithotripsies for calcium oxalate stones who presented to the ED 02/06/2018 with a c/o flank pain, nausea, dysuria, hematuria, and ECG changes ("new" RBBB) we are asked to evaluate and help manage in regard to the ECG changes. Mr. Erwin states he was told he had a "bundle branch block" while in [place], but never followed up with cardiology on an outpatient basis. He also states that he has experienced "whiteout" every time he stood up, despite adequate fluid intake of ~2L daily. He admits to intermittent episodes of nonexertional intermittent chest discomfort and palpitations described as "skipped beats", but denied any shortness of breath, orthopnea, paroxysmal nocturnal dyspnea, or lower extremity edema. Along with slow healing wounds, nosebleeds, etc. he also experienced perioperative hemorrhaging following cholecystectomy/liver biopsy. Allergies/Medications Allergies: Coded Allergies: acetaminophen (Severe, LIVER BLEEDING 01/20/18) adhesive (Intermediate, SKIN IRRITATION 02/06/18) NSAIDS (Non-Steroidal Anti-Inflamma (HEMOPHILIA 01/11/18) morphine (SWELLING 01/11/18) Home Med List: Amlodipine Besylate 10 MG TABLET 1 TAB PO DAILY BP (Reported) Ascorbate Calcium (Vitamin C) (Unknown Strength) TABLET (Unknown Dose) PO DAILY SUPPLEMENT (Reported) Cholecalciferol (Vitamin D3) (Vitamin D) (Unknown Strength) TABLET (Unknown Dose) PO DAILY SUPPLEMENT (Reported) Duloxetine Hydrochloride (Cymbalta) 30 MG CAPSULE.DR 90 MG PO DAILY NERVE PAIN (Reported) Factor XIII (Corifact) 1,000 UNIT-1,600 UNIT KIT 0 INJ AD PRN BLEEDING ( Reported) Hydroxyzine HCl (hydrOXYzine HCl) 25 MG TABLET 2 TAB PO BID ANXIETY (Reported ) Lisinopril 20 MG TABLET 1 TAB PO DAILY BP (Reported) Oxycodone HCl 10 MG TABLET 10 MG PO Q6-PRN PRN pain Suvorexant (Belsomra) 20 MG TABLET 1 TAB PO QPM SLEEP (Reported) Trazodone HCl 100 MG TABLET 1 TAB PO QPM SLEEP (Reported) Vitamin B Complex 1 EACH CAPSULE 1 CAP PO DAILY SUPPLEMENT (Reported) Review of Systems Review of Systems: A 14 point system review was obtained was noncontributory, other than as above. Past History Travel History Traveled to [place] past 21 day No Medical History Neurological: migraine EENT: NONE Cardiovascular: hypertension Respiratory: NONE Gastrointestinal: NONE Hepatic: "CLOT ON LIVER" PER PT Renal: kidney stones Musculoskeletal: NONE Psychiatric: anxiety, depression Endocrine: NONE Blood Disorders: hemophilia Cancer(s): NONE [employer]/Reproductive: NONE Surgical History Surgical History: non-contributory Family History Relations & Conditions If Any: cousin Hemophilia A Psychosocial History Where Do You Live? Home Services at Home: None Smoking Status: Never Smoked ETOH Use: occasional use Illicit Drug Use: denies illicit drug use Exam & Diagnostic Data Vital Signs and I&O Vital Signs Date Time Temp Pulse Resp B/P B/P Pulse O2 O2 Flow FiO2 Mean Ox Delivery Rate 02/07 1353 98.0 96 18 132/88 98 02/07 0820 69 134/72 02/07 0820 69 134/72 02/07 0700 98.3 69 20 108/68 97 Room Air 02/06 2237 99.3 96 18 130/70 97 02/06 1800 98.7 73 18 130/82 95 Room Air 02/06 1659 98.1 92 18 122/74 99 Room Air Intake & Output 02/07 1600 02/07 0800 02/07 0000 02/06 1600 02/06 0800 02/06 0000 Intake Total 253 938 3172 Output Total 300 Balance 800 240 700 Intake, IV 1000 Intake, Oral 800 240 Output, Urine 300 Patient 236 lb 236 lb 225 lb Weight Weight Bed scale Reported by Patient Measurement Method Physical Exam: Well-developed, overweight, pale appearing middle-aged male in no acute distress. Vital signs: See above. HEENT: Normocephalic, atraumatic, EOMI, slightly dry mucous membranes. Neck: No JVD, no bruits. Lungs: Clear to auscultation bilaterally. Heart: S1, S2 with a grade 1/6 systolic murmur. Pattern: Soft, nontender, positive bowel sounds. Extremities: No edema. Assessment/Plan Assessment/Plan 47-yo-w-m w/ hx of anxiety/depression, migraine MAZARIEGOS, HTN, hemophilia A dx'd ~2014 in [place] during a complicated postop course ([id number]) requiring multiple units of pRBCs (22 units) w/subsequent frequent bouts of nephrolithiasis requiring numerous cystoscopies, stents, lithotripsies, etc. for calcium oxalate stones who presented to the ED 02/06/2018 with a c/o flank pain, nausea, dysuria, hematuria, and ECG changes ("new" RBBB) who we are asked to evaluate and help manage in regard to the ECG changes. The right bundle-branch is vulnerable to stretch and trauma for two thirds of its course when it is near the subendocardial surface and conduction in the bundle can be compromised by both structural and functional factors. Structural factors include: Chronically increased RV pressure, S and cor pulmonale; sudden increases in RV pressure with stretch, as an pulmonary embolism, myocardial ischemia, infarction, or inflammation, as in myocarditis. Less common causes include hypertension, cardiomyopathies, and congenital heart disease. RBBB can also result from idiopathic progressive cardiac conduction disease (Lenegre's or Lev's disease). Additionally, but not playing a role here, are iatrogenic causes from catheter- based interventions, functional causes from long preceding RR intervals followed by short cycles, i.e. rate related, and pseudo-RBBB patterns such as Brugada syndrome, arrhythmogenic RV cardiomyopathy, etc. Prognosis in patients with RBBB is related to the severity of any concomitant heart disease and the possible presence of other conduction disturbances. Long- term outcomes are generally good in patient's without associated heart disease, although those with RBBB and associated cardiac disease have worse outcomes than those without RBBB. Recommendations: * Continue on telemetry. * No indication for permanent pacemaker placement at this time. * Echocardiogram to assess left ventricular systolic/diastolic function, right ventricular function, estimated PA pressure, tricuspid regurgitation, etc. * Continued management of hypertension. Further recommendations will follow, Thank you. Consult Acknowledgment - Thank you for your consult request.
[2018-02-07 21:32] VITALS: BP 140/80
[2018-02-08 06:56] VITALS: BP 112/76
[2018-02-08 08:20] LABS: ABSOLUTE BASOPHIL COUNT 0.1 /CUMM (0.0-0.2); ABSOLUTE EOSINOPHIL COUNT 0.2 /CUMM (0.0-0.7); ABSOLUTE GRANULOCYTE CT 2.1 /CUMM (1.4-6.5); ABSOLUTE LYMPH COUNT 1.1 /CUMM (1.2-3.4); ABSOLUTE MONOCYTE COUNT 0.4 /CUMM (0.10-0.60); BASOPHIL % 1.3 % (0.0-2.0); EOSINOPHIL % 5.1 % (0-5); GRANULOCYTE % 54.6 % (42.2-75.2); HEMATOCRIT 27.3 % (42-52); MEAN CORPUSCULAR HGB 23.5 PG (27.0-31.0); MEAN CORPUSCULAR VOLUME 73.3 FL (80.0-94.0); MEAN PLATELET VOLUME 7.7 FL (7.4-10.4); PLATELET COUNT 265 /CUMM (130-400); RBC DISTRIBUTION WIDTH 16.4 % (11.5-14.5); RED BLOOD CELL CT 3.72 /CUMM (4.70-6.10); WHITE BLOOD CELL COUNT 3.9 /CUMM (4.8-10.8)
[2018-02-08] MEDS ORDERED: OXYCODONE HCL10 M2 PO ×3 (10:03→14:18)
--- NOTE | 2018-02-08 10:59 | PN-Observation ---
RouseYahaira 02/08/18 1051: Observation Note Observation Note _ I have personally examined LACI ERWIN. him disposition is uncertain at this time. Before a determination can be made, he requires continued observation for the following reasons [Flank pain w/ intermittent hematuria]. Assessment/Plan Medical Assessment: Mr. Erwin is a 47-year-old male w/ PMH of Hemophillia A, recurrent kidney stones, Anxiety/Depression, Gastro-bypass in 2011, presented to ER with flank pain x 48hrs, hematuria, dysuria, nausea,and incidental findings of EKG change. Patient had been admitted here and elsewhere with similar complaints of flank pain, hematuria, and his EKG change was not new. Patient would need observation in telemetry for further cardiac findings if any. Problem list #Incidental EKG change, RBBB w/ sinus tachycardia #LLQ Ab pain and Bilateral Flank pain w/ hematuria/dysuria, 2/2 recurrent kidney stones #PMH of HTN, Anxiety, depression Plan - Continued pain management w/ Oxycodone 10mg q6 PRN PO, and Morphine 1mg PRN IV q4. However, patient reported that he would need morphine 8mg for pain control. Pending pain management consult before dose adjustment. - Continued home meds including amlodipine, lisinopril,trazodone,and duloxetine. - Avoid NSAIDS (bleeding risk/Gastric bypass), acetaminophen (Liver problem), and avoid morphine if patient receives transfusion. - Cardiology consult recommended no active indication for pacemaker. - Urology deferred to outpatient f/u. - Daily monitoring of H/H. Hgb dropped to 8.7 on latest lab. Started Factor VIII injection at home dose (patient brought from home) DVT prophylaxis ALPS only Heart Healthy Diet Full Code Problem List: 1. Flank pain 2. Hematuria Subjective Follow-up For: #Incidental EKG change, RBBB w/ sinus tachycardia #LLQ Ab pain and Bilateral Flank pain w/ hematuria/dysuria, 2/2 recurrent kidney stones #PMH of HTN, Anxiety, depression, Hemophillia A Tele-Events Since Last Visit: Off Tele Subjective: No overnight event. Patient still rated 7-8/10 for bilateral flank pain, with intermittent hematuria overnight. Patient stated that he did not receive any factor VIII overnight. Denied chest pain. No other specific complaint. Review of Systems Constitutional: Reports: see HPI. Objective Last 24 Hrs of Vital Signs/I&O Vital Signs Date Time Temp Pulse Resp B/P B/P Pulse O2 O2 Flow FiO2 Mean Ox Delivery Rate 02/08 0804 74 112/76 02/08 0804 74 112/76 02/08 0656 98.2 74 20 112/76 96 Room Air 02/07 2132 99.0 78 20 140/80 95 02/07 1353 98.0 96 18 132/88 98 Intake & Output 02/08 1600 02/08 0800 02/08 0000 Intake Total 480 Output Total Balance 480 Intake, Oral 480 Patient 106.396 kg Weight Weight Bed scale Measurement Method Physical Exam General Appearance: Alert, Oriented X3, Cooperative, No Acute Distress Cardiovascular: Regular Rate Lungs: Normal Air Movement Abdomen: Soft, No Tenderness, BL flank pain Neurological: Normal Speech Extremities: No Edema, Normal Pulses Current Medications: Current Medications Sig/Antonia Start time Last Medication Dose Route Stop Time Status Admin Amlodipine Besylate 10 MG DAILY 02/07 1000 AC 02/08 PO 0804 Duloxetine HCl 90 MG DAILY 02/07 1000 AC 02/08 PO 0804 Hydroxyzine HCl 50 MG BID 02/06 2200 AC 02/08 PO 0805 Lisinopril 20 MG DAILY 02/07 1000 AC 02/08 PO 0804 Morphine Sulfate 1 MG Q4 HRS NEEDED PRN 02/07 0200 AC 02/08 IV 0802 Non-Formulary 0 SEE ADMIN CRITERIA 02/07 1045 DC Medication ANY Oxycodone HCl 10 MG Q6-PRN PRN 02/07 1500 AC 02/08 PO 0703 Oxycodone HCl 5 MG Q6-PRN PRN 02/06 1730 DC 02/07 PO 0820 Trazodone HCl 100 MG QPM 02/06 2200 AC 02/07 PO 2145 Last 24 Hrs of Labs/Mics: Laboratory Tests 02/08/18 0640: CBC w Diff NO MAN DIFF REQ, RBC 3.72 L, MCV 73.3 L, MCH 23.5 L, MCHC 32.0 L, RDW 16.4 H, MPV 7.7, Gran % 54.6, Lymphocytes % 27.5, Monocytes % 11.5 H, Eosinophils % 5.1 H, Basophils % 1.3, Absolute Granulocytes 2.1, Absolute Lymphocytes 1.1 L, Absolute Monocytes 0.4, Absolute Eosinophils 0.2, Absolute Basophils 0.1 Jacob SHANKS,Claudeugfedericoritchie 02/08/18 1124: Observation Note Observation Note _ I have personally examined LACI ERWIN. him disposition is uncertain at this time. Before a determination can be made, he requires continued observation for the following reasons []. Patient seen and examined. Resting comfortably and not in any acute distress. He was very jovial this morning. No issues overnight. Denies chest pain or shortness of breath. Denies palpitations. Continues to complain of flank pain but reports improvement on current pain regimen. He is agreeable with being discharged on oxycodone 10 mg every 6 hours as needed for pain. He is aware that we can only provide him with limited supply of prescriptions. Unfortunately the pain management service has been unable to come and see the patient while he is in the hospital. Patient reports that he has had difficulty establishing care with a pain management service in the outpatient setting. This has been discussed with the case management service to assist the patient in establishing insurance and care in the outpatient service. Hemoglobin level is stable. He is aware to take his factor VIII should he develop significant bleeding. I did discuss this case with the urology service. I did speak with Dr. José Luis Barrett. Patient is to follow-up in the outpatient system for evaluation for the need of repeat urologic diagnostic studies.
[2018-02-08 14:11] VITALS: BP 122/80
--- NOTE | 2018-02-08 16:17 | PN- Cardiology ---
Subjective Subjective: Feels a little better. Objective Vital Signs and I&Os Vital Signs Date Time Temp Pulse Resp B/P B/P Pulse O2 O2 Flow FiO2 Mean Ox Delivery Rate 02/08 1411 98.2 92 18 122/80 96 Room Air 02/08 0804 74 112/76 02/08 0804 74 112/76 02/08 0656 98.2 74 20 112/76 96 Room Air 02/07 2132 99.0 78 20 140/80 95 Intake & Output 02/08 1600 02/08 0800 02/08 0000 02/07 1600 02/07 0800 02/07 0000 Intake Total 480 800 240 Output Total Balance 480 800 240 Intake, Oral 480 800 240 Patient 235 lb 236 lb 236 lb Weight Weight Bed scale Bed scale Measurement Method Physical Exam: Well-developed, overweight, pale appearing middle-aged male in no acute distress. Neck: no JVD, no bruits. Lungs: Clear to auscultation bilaterally. Heart: S1, S2 with a grade 1/6 systolic murmur. Pattern: Soft, nontender, positive bowel sounds. Extremities: No edema. Current Medications: Current Medications Sig/Antonia Start time Last Medication Dose Route Stop Time Status Admin Amlodipine Besylate 10 MG DAILY 02/07 1000 DCD 02/08 PO 0804 Duloxetine HCl 90 MG DAILY 02/07 1000 DCD 02/08 PO 0804 Hydroxyzine HCl 50 MG BID 02/06 2200 DCD 02/08 PO 0805 Lisinopril 20 MG DAILY 02/07 1000 DCD 02/08 PO 0804 Morphine Sulfate 1 MG Q4 HRS NEEDED PRN 02/07 0200 DCD 02/08 IV 0802 Oxycodone HCl 10 MG Q6-PRN PRN 02/07 1500 DCD 02/08 PO 1319 Trazodone HCl 100 MG QPM 02/06 2200 DCD 02/07 PO 2145 Results Last 48 Hrs of Labs/Mics: Laboratory Tests 02/08/18 0640: CBC w Diff NO MAN DIFF REQ, RBC 3.72 L, MCV 73.3 L, MCH 23.5 L, MCHC 32.0 L, RDW 16.4 H, MPV 7.7, Gran % 54.6, Lymphocytes % 27.5, Monocytes % 11.5 H, Eosinophils % 5.1 H, Basophils % 1.3, Absolute Granulocytes 2.1, Absolute Lymphocytes 1.1 L, Absolute Monocytes 0.4, Absolute Eosinophils 0.2, Absolute Basophils 0.1 02/07/18 0643: Anion Gap 10, Estimated GFR > 60, BUN/Creatinine Ratio 11.4, CBC w Diff NO MAN DIFF REQ, RBC 3.78 L, MCV 73.6 L, MCH 23.4 L, MCHC 31.9 L, RDW 16.3 H, MPV 7.9, Gran % 54.0, Lymphocytes % 27.6, Monocytes % 11.3 H, Eosinophils % 5.9 H, Basophils % 1.2, Absolute Granulocytes 2.4, Absolute Lymphocytes 1.2, Absolute Monocytes 0.5, Absolute Eosinophils 0.3, Absolute Basophils 0.1 Recent Imaging Studies: Echocardiogram 02/07/2018: Normal size left ventricle. Borderline to mild concentric left ventricular hypertrophy. Normal left ventricular ejection fraction visually estimated at 65% . Mildly increased resting left ventricular outflow tract velocity (1.27 m/s). "Pseudonormal" filling pattern of the left ventricle for age (stage 2 diastolic dysfunction). Normal right ventricular size and function. Normal atrial size. Trace tricuspid regurgitation. No evidence of pulmonary hypertension. Mildly dilated proximal ascending aorta (tube). Assessment/Plan Assessment/Plan 47-yo-w-m w/ hx of anxiety/depression, migraine MAZARIEGOS, HTN, hemophilia A dx'd ~2013 in [place] during a complicated postop course ([id number]) requiring multiple units of pRBCs (22 units) w/subsequent frequent bouts of nephrolithiasis requiring numerous cystoscopies, stents, lithotripsies, etc. for calcium oxalate stones who presented to the ED 02/06/2018 with a c/o flank pain, nausea, dysuria, hematuria, and ECG changes ("new" RBBB) who we are asked to evaluate and help manage in regard to the ECG changes. Fortunately, he is feeling improved and his repeat ECG no longer shows the RBBB, except for one complex. He is also describing what sounds like possible orthostatic hypotension. This should be evaluated further. We will follow-up on an outpatient basis and have him undergo an imaging stress test to exclude an ischemic basis for his bundle-branch block. Finally, we will need to follow-up on his dilated ascending thoracic aorta. Continue telemetry? Yes
[2018-03-10] MEDS ORDERED: OXYCODONE HCL5 M1 PO (22:00)
[2018-03-10] MEDS ORDERED: ROBAXIN-750750 M1 PO (22:00)
[2018-04-05] MEDS ORDERED: OXYCODONE HCL5 M1 PO (18:46)
[2018-04-05] MEDS ORDERED: BACTRIM DS TAB1 EACH PO (18:47)
[2018-04-26] MEDS ORDERED: OXYCODONE HCL5 M2 PO (20:41)
[2018-04-26] MEDS ORDERED: ZOFRAN ODT4 M1 SL (20:41)
[2018-04-26] MEDS ORDERED: KEFLEX500 M1 PO (20:41)
== END 2018-02-08 14:35 ==
LOC: ERH 10:53 → ERHI 14:43 → 1NO 14:43 → ENRESERV 16:00 → ENTRNSPT 17:04 → EDTRNSPTSTS 17:16 → 1NO 17:16 → EDTRNSPT 17:16 → CMPTRNSPT 17:32 → ENPENDDIS 02-08 10:18 → 1NO 02-08 14:35
PROVIDERS: Physician Assistant Medical
DX: R10.32 Left lower quadrant pain (principal); R10.9 Unspecified abdominal pain; D66 Hereditary factor VIII deficiency; Z87.442 Personal history of urinary calculi; F41.9 Anxiety disorder, unspecified; F32.9 Major depressive disorder, single episode, unspecified; G43.909 Migraine, unspecified, not intractable, without status migrainosus; I10 Essential (primary) hypertension; R31.9 Hematuria, unspecified; I45.10 Unspecified right bundle-branch block; R30.0 Dysuria; R42 Dizziness and giddiness
CPT/HCPCS: 6020; 36592; 71046; 76775; 81001; 82436; 87086; 93005; 93010; 93306; 96361; 96374; 96375; 96376; G0378; J2405

== ENCOUNTER 2018-04-09 12:43 | Emergency (ER) | payer OTHER ==
[~2018-04-09] VITALS: Ht 172.7 cm; Wt 104.3 kg
[~2018-04-09 12:43] MED LIST changes: +BACTRIM DS TAB1 EACH PO; +OXYCODONE HCL10 M2 PO; +ROBAXIN-750750 M1 PO
--- NOTE | 2018-04-09 13:48 | ED GENERAL ADULT ---
History of Present Illness General Chief Complaint: Male Genitourinary Problems Stated Complaint: URINARY BLEEDING Allergies Coded Allergies: acetaminophen (Severe, LIVER BLEEDING 01/20/18) adhesive (Intermediate, SKIN IRRITATION 02/06/18) NSAIDS (Non-Steroidal Anti-Inflamma (HEMOPHILIA 01/11/18) fentanyl (RASH/BURNING 03/10/18) Reconcile Medications Amlodipine Besylate 10 MG TABLET 1 TAB PO DAILY BP (Reported) Ascorbate Calcium (Vitamin C) (Unknown Strength) TABLET (Unknown Dose) PO DAILY SUPPLEMENT (Reported) Cholecalciferol (Vitamin D3) (Vitamin D) (Unknown Strength) TABLET (Unknown Dose) PO DAILY SUPPLEMENT (Reported) Duloxetine Hydrochloride (Cymbalta) 30 MG CAPSULE.DR 90 MG PO DAILY NERVE PAIN (Reported) Factor XIII (Corifact) 1,000 UNIT-1,600 UNIT KIT 0 INJ AD PRN BLEEDING ( Reported) Hydroxyzine HCl (hydrOXYzine HCl) 25 MG TABLET 2 TAB PO BID ANXIETY (Reported ) Lisinopril 20 MG TABLET 1 TAB PO DAILY BP (Reported) Methocarbamol (Robaxin-750) 750 MG TABLET 1 TAB PO TID PRN PAIN Oxycodone HCl 5 MG TABLET 1 TAB PO 4XDP PRN SEVERE PAIN Oxycodone HCl 5 MG TABLET 1 TAB PO 4XDP PRN SEVERE PAIN Oxycodone HCl 10 MG TABLET 10 MG PO Q6-PRN PRN pain Oxycodone HCl/Acetaminophen (Percocet 5-325 MG Tablet) 5 MG-325 MG TABLET 1 TAB PO BID PAIN Sulfamethoxazole/Trimethoprim (Bactrim Ds Tablet) 800 MG-160 MG TABLET 1 TAB PO BID uti Suvorexant (Belsomra) 20 MG TABLET 1 TAB PO QPM SLEEP (Reported) Trazodone HCl 100 MG TABLET 1 TAB PO QPM SLEEP (Reported) Vitamin B Complex 1 EACH CAPSULE 1 CAP PO DAILY SUPPLEMENT (Reported) Triage Note: PT STATES HE WAS SEEN ON SUNDAY FOR SAME. PT STATES HE HAS HAD INCREASED BLOOD IN HIS URINE. PT STATES HE WAS DIOGNOSED WITH KIDNEY STONES. (Maurice Manzano DO) General Source: patient Exam Limitations: no limitations Vital Signs & Intake/Output Vital Signs & Intake/Output Vital Signs Date Time Temp Pulse Resp B/P B/P Pulse O2 O2 Flow FiO2 Mean Ox Delivery Rate 04/09 1636 98.4 76 18 124/88 98 Room Air 04/09 1248 98.6 100 18 153/89 97 Room Air Triage Nurses Notes Reviewed? yes Onset: Abrupt Duration: day(s): Timing: recent history HPI: 04/09/18 2 PM 47-year-old male with past medical history of hemophilia and ureterolithiasis presents with left-sided flank pain. He said he had ongoing left-sided flank pain and hematuria. He says that he gives himself factor infusions. Sunday night he infused 5000 units of Advate. Now he continues to complain of left- sided flank pain. He denies vomiting or fever. (Maurice Manzano DO ([facility])) Past History Travel History Traveled to [place] past 21 day No Medical History Neurological: migraine EENT: NONE Cardiovascular: hypertension Respiratory: NONE Gastrointestinal: NONE Hepatic: "CLOT ON LIVER" PER PT Renal: kidney stones Musculoskeletal: NONE Psychiatric: anxiety, depression Endocrine: NONE Blood Disorders: hemophilia Cancer(s): NONE INFORMATICIST/Reproductive: NONE History of MRSA: No History of VRE: No History of CDIFF: No Surgical History Surgical History: non-contributory Psychosocial History Who do you live with Spouse Services at Home None What is your primary language Colombian Tobacco Use: Never used ETOH Use: denies use Illicit Drug Use: denies illicit drug use Family History Family History, If Any: cousin Hemophilia A (Maurice Manzano DO) Medical History Any Pertinent Medical History? see below for history Family History Hx Contributory? No (Maurice Manzano DO ([facility])) Review of Systems Review of Systems Constitutional: Denies: fever. EENTM: Reports: no symptoms. Respiratory: Reports: no symptoms. Cardiovascular: Reports: no symptoms. GI: Reports: abdominal pain. Genitourinary: Reports: see HPI. Musculoskeletal: Reports: no symptoms. Skin: Denies: rash. Neurological/Psychological: Reports: no symptoms. Hematologic/Endocrine: Reports: bleeding. Immunologic/Allergic: Reports: no symptoms. (Maurice Manzano DO ([facility])) Physical Exam Physical Exam General Appearance: well developed/nourished, alert, awake, anxious, mild distress Head: atraumatic, normal appearance Eyes: Bilateral: normal appearance, PERRL, EOMI. Ears, Nose, Throat: normal pharynx, normal ENT inspection Neck: normal inspection, supple Respiratory: normal breath sounds, chest non-tender, no respiratory distress Cardiovascular: regular rate/rhythm Peripheral Pulses: 4+ radial (R), 4+ radial (L) Gastrointestinal: soft, non-tender Back: CVA tenderness (L) Extremities: normal range of motion Neurologic/Psych: no motor/sensory deficits, awake, alert, oriented x 3 Skin: intact, normal color, warm/dry Core Measures ACS in differential dx? No CVA/TIA Diagnosis: No Sepsis Present: No Sepsis Focused Exam Completed? No (Maurice Manzano DO ([facility])) Progress Differential Diagnoses I considered the following diagnoses in my evaluation of the patient: (Maurice Manzano DO) Differential Diagnoses I considered the following diagnoses in my evaluation of the patient: Muscle strain, ureterolithiasis, nephrolithiasis, UTI, coagulopathy Plan of Care: Orders Procedure Date/time Status Add-on Test (ER Only) 04/09 1453 Active PROTHROMBIN TIME 04/09 1352 Complete COMPREHENSIVE METABOLIC PANEL 04/09 135 Complete CBC WITHOUT DIFFERENTIAL 04/09 1352 Complete CULTURE,URINE 04/09 1315 Active URINALYSIS 04/09 1313 Complete Laboratory Tests 04/09/18 1450: Anion Gap 8, Estimated GFR > 60, BUN/Creatinine Ratio 18.3, Glucose 92, Calcium 8.6, Total Bilirubin 0.3, AST 20, ALT 38, Alkaline Phosphatase 66, Total Protein 5.8 L, Albumin 3.3 L, Globulin 2.5, Albumin/Globulin Ratio 1.3, PT 9.8, INR 0.90, CBC w Diff NO MAN DIFF REQ, RBC 3.84 L, MCV 72.1 L, MCH 23.0 L, MCHC 31.9 L, RDW 17.5 H, MPV 6.8 L, Gran % 73.2, Lymphocytes % 15.5 L, Monocytes % 8.5, Eosinophils % 2.4, Basophils % 0.4, Absolute Granulocytes 3.6, Absolute Lymphocytes 0.8 L, Absolute Monocytes 0.4, Absolute Eosinophils 0.1, Absolute Basophils 0 04/09/18 1315: Urinalysis LIGHT H, Urine Color BLDY H, Urine Clarity HAZY H, Urine pH 8.0, Ur Specific Deshler 1.020, Urine Protein 30 H, Urine Ketones TRACE H, Urine Nitrite NEG, Urine Bilirubin NEG, Urine Urobilinogen 1.0, Ur Leukocyte Esterase NEG, Ur Microscopic SEDIMENT EXAMINED, Urine RBC >75 H, Urine WBC RARE, Urine Crystals RARE CA OX, Urine Mucus RARE, Urine Hemoglobin LARGE H, Urine Glucose NEG Microbiology 04/09 1352 URINE ROUT: Urine Culture - CAN Cancelled: Cancelled via OE: ADDED ON 04/09 1315 URINE ROUT: Urine Culture - RECD Initial ED EKG: none (Maurice Manzano DO)) Departure Departure Condition: Stable Clinical Impression Primary Impression: Flank pain Secondary Impressions: Hemophilia Referrals: Unknown (PCP/Family) Departure Forms: Customer Survey General Discharge Information Prescriptions: Current Visit Scripts Oxycodone HCl/Acetaminophen (Percocet 5-325 MG Tablet) 1 TAB PO BID #10 TAB Comments Labs are consistent with the patient's baseline. Ultrasound is unremarkable. He will take factor at home. Follow-up with urology this week. CT on the was unremarkable. (Maurice Manzano DO) Departure Disposition: HOME OR SELF CARE (Maurice Manzano DO ([facility])) Critical Care Note Critical Care Note Critical Care Time: non-applicable (Maurice Manzano DO))
[2018-04-09 14:56] LABS: ABSOLUTE BASOPHIL COUNT 0 /CUMM (0.0-0.2); ABSOLUTE EOSINOPHIL COUNT 0.1 /CUMM (0.0-0.7); ABSOLUTE GRANULOCYTE CT 3.6 /CUMM (1.4-6.5); ABSOLUTE LYMPH COUNT 0.8 /CUMM (1.2-3.4); ABSOLUTE MONOCYTE COUNT 0.4 /CUMM (0.10-0.60); BASOPHIL % 0.4 % (0.0-2.0); EOSINOPHIL % 2.4 % (0-5); GRANULOCYTE % 73.2 % (42.2-75.2); HEMATOCRIT 27.7 % (42-52); MEAN CORPUSCULAR HGB CONC 31.9 G/DL (33.0-37.0); MEAN CORPUSCULAR VOLUME 72.1 FL (80.0-94.0); MEAN PLATELET VOLUME 6.8 FL (7.4-10.4); PLATELET COUNT 311 /CUMM (130-400); RBC DISTRIBUTION WIDTH 17.5 % (11.5-14.5); RED BLOOD CELL CT 3.84 /CUMM (4.70-6.10); WHITE BLOOD CELL COUNT 4.9 /CUMM (4.8-10.8)
[2018-04-09 15:02] LABS: PT 9.8 SEC (9.4-12.5)
--- NOTE | 2018-04-09 15:14 | ULTRASOUND REPORT ---
EXAMINATION: US RETROPERITONEAL COMPLETE (RENAL) CLINICAL INFORMATION: Left flank pain. COMPARISON: CT from 04/05/2018 TECHNIQUE: Real-time imaging of the kidneys and bladder. FINDINGS: RIGHT KIDNEY: 13.8 x 6.3 x 4.2 cm (SAG x AP x TRV). The kidney is normal in size, contour, and echogenicity. Renal cortical thickness is normal. There is no hydronephrosis. No calculi. There are 2 upper pole renal cysts. These measure 1.7 cm and 0.7 cm. LEFT KIDNEY: 12.5 x 6.5 x 4.8 cm (SAG x AP x TRV). The kidney is normal in size, contour, and echogenicity. Renal cortical thickness is normal. No hydronephrosis. No calculi. There is an upper pole 1.3 cm simple cyst. BLADDER: Empty and not well assessed. IMPRESSION: No hydronephrosis or nephrolithiasis. Bilateral renal simple cysts..
[2018-04-09] MEDS ORDERED: PERCOCET 5-3251 EACH PO (16:35)
[2018-04-09 16:36] VITALS: BP 124/88
== END 2018-04-09 16:39 ==
LOC: ERH 12:43
PROVIDERS: Emergency Medicine
DX: D66 Hereditary factor VIII deficiency (principal); R10.32 Left lower quadrant pain
CPT/HCPCS: 76775; 81001; 87086; 96374; 96375

== ENCOUNTER 2018-05-02 08:34 | Observation (INO) | payer OTHER ==
[~2018-05-02] VITALS: Ht 172.7 cm; Wt 104.3 kg
[~2018-05-02 08:34] MED LIST changes: +KEFLEX500 M1 PO; +OXYCODONE HCL5 M2 PO; +PERCOCET 5-3251 EACH PO; +ZOFRAN ODT4 M1 SL
--- NOTE | 2018-05-02 09:04 | ED GI/GU/ABDOMINAL COMPLAINT ---
History of Present Illness General Chief Complaint: Abdominal Pain/Flank Pain Stated Complaint: ?KIDNEY STONE Source: patient, old records Exam Limitations: no limitations Vital Signs & Intake/Output Vital Signs & Intake/Output Vital Signs Date Time Temp Pulse Resp B/P B/P Pulse O2 O2 Flow FiO2 Mean Ox Delivery Rate 05/02 1436 98.2 93 18 127/91 96 05/02 0918 98 Room Air 05/02 0838 98.4 114 18 170/98 98 Room Air Allergies Coded Allergies: acetaminophen (Severe, LIVER BLEEDING 01/20/18) adhesive (Intermediate, SKIN IRRITATION 02/06/18) NSAIDS (Non-Steroidal Anti-Inflamma (HEMOPHILIA 01/11/18) fentanyl (RASH/BURNING 03/10/18) Reconcile Medications Amlodipine Besylate 10 MG TABLET 1 TAB PO DAILY BP (Reported) Ascorbate Calcium (Vitamin C) (Unknown Strength) TABLET (Unknown Dose) PO DAILY SUPPLEMENT (Reported) Cholecalciferol (Vitamin D3) (Vitamin D) (Unknown Strength) TABLET (Unknown Dose) PO DAILY SUPPLEMENT (Reported) Duloxetine Hydrochloride (Cymbalta) 30 MG CAPSULE.DR 90 MG PO DAILY NERVE PAIN (Reported) Hydroxyzine HCl (hydrOXYzine HCl) 25 MG TABLET 2 TAB PO BID ANXIETY (Reported ) Lisinopril 20 MG TABLET 1 TAB PO DAILY BP (Reported) Methocarbamol (Robaxin-750) 750 MG TABLET 1 TAB PO TID PRN PAIN Ondansetron (Zofran Odt) 4 MG TAB.RAPDIS 1 TAB SL TID Nausea and Vomiting Suvorexant (Belsomra) 20 MG TABLET 1 TAB PO QPM SLEEP (Reported) Trazodone HCl 100 MG TABLET 1 TAB PO QPM SLEEP (Reported) Vitamin B Complex 1 EACH CAPSULE 1 CAP PO DAILY SUPPLEMENT (Reported) Triage Note: 47 YO FEMALE TO TRIAGE FOR EVAL OF KIDNEY STONE PAIN. PT STATES HE IS BLEEDING "ALOT" WITH URINATION. STATES HX OF HEMOPHILIA, REPORTS HAS BEEN GIVING HIMSELF FACTOR 8 BUT THE BLEEDING HASNT SLOWED DOWN. REPORTS INCREASE IN PAIN THIS AM. Triage Nurses Notes Reviewed? 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 Patient was seen and evaluated here on 04/26/18. At that time he was diagnosed with a right-sided nonobstructing kidney stone. Patient had hematuria, due to active hematuria and his hemophilia was recommended he stay in the hospital however patient felt he could manage well at home. Patient states that his pain and hematuria improved after left however symptoms have worsened again within the past 2 days. Patient reporting gross hematuria with urination and increasing pain. Patient also reports nausea. Patient states he feels sweats, he attributes this to his pain. (Belem Moreland) Past History Travel History Traveled to [place] past 21 day No Medical History Any Pertinent Medical History? 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 No (Belem Moreland) Review of Systems Review of Systems Constitutional: Reports: see HPI. EENTM: Reports: no symptoms. Respiratory: Reports: no symptoms. Cardiovascular: Reports: no symptoms. GI: Reports: see HPI. Genitourinary: Reports: see HPI. Musculoskeletal: Reports: no symptoms. Skin: Reports: no symptoms. Neurological/Psychological: Reports: no symptoms. Hematologic/Endocrine: Reports: no symptoms. Immunologic/Allergic: Reports: no symptoms. All Other Systems: Reviewed and Negative (Belem Moreland) Physical Exam Physical Exam General Appearance: alert, awake, moderate distress Head: atraumatic, normal appearance Eyes: Bilateral: normal appearance. Ears, Nose, Throat, Mouth: hearing grossly normal Neck: normal inspection, supple, full range of motion Respiratory: normal breath sounds, no respiratory distress, lungs clear Cardiovascular: regular rate/rhythm Gastrointestinal: normal bowel sounds, soft, non-tender, no organomegaly Back: normal inspection, normal range of motion Extremities: normal range of motion Neurologic/Psych: awake, alert, oriented x 3 Skin: intact, normal color, warm/dry Core Measures ACS in differential dx? No Sepsis Present: No Sepsis Focused Exam Completed? No (Amanda ECHEVARRIA,Belem Hyde) Progress Differential Diagnosis: bowel obstruction, diverticulitis, epididymitis, hernia, prostatitis, testicular torsion, ureterolithiasis, UTI/pyelo Plan of Care: Orders Procedure Date/time Status Heart Healthy Diet 05/03 B Active CBC WITHOUT DIFFERENTIAL 05/03 600 Active BASIC ELECTROLYTES PLUS BUN&CR 05/03 600 Active Regular Diet 05/02 D Complete CBC WITHOUT DIFFERENTIAL 05/02 2100 Active Code Status 05/02 194 Active CBC WITHOUT DIFFERENTIAL 05/02 1741 Complete TYPE & SCREEN (NOT X-MATCH) 05/02 1741 Complete TYPE & SCREEN (NOT X-MATCH) 05/02 1717 Active Pathway - chart 05/02 1716 Active House Staff 05/02 1716 Active Patient Data 05/02 1716 Active Patient Data 05/02 1635 Active Intake & Output 05/02 0917 Active TOTAL IRON BINDING CAPACITY 05/02 0910 Complete RETICULOCYTE COUNT 05/02 0910 Complete FERRITIN 05/02 0910 Complete SERUM IRON 05/02 0910 Complete CULTURE,URINE 05/02 0855 Active PARTIAL THROMBOPLASTIN TIME 05/02 0855 Complete PROTHROMBIN TIME 05/02 0855 Complete URINALYSIS 05/02 0852 Complete COMPREHENSIVE METABOLIC PANEL 05/02 0852 Complete CBC WITHOUT DIFFERENTIAL 05/02 0852 Complete XRY-KIDNEYS, URETERS, BLADDER 05/[address] in observation 05/02 UNK Active Lab Add-on Test 05/02 UNK Active VTE Mechanical Prophylaxis 05/02 UNK Active Vital Signs 05/02 UNK Active Intake & Output 05/02 UNK Active Current Medications Sig/Antonia Start time Last Medication Dose Stop Time Status Admin Amlodipine Besylate 10 MG DAILY 05/03 900 AC (Norvasc) Duloxetine HCl 90 MG DAILY 05/03 900 AC (Cymbalta) Lisinopril 20 MG DAILY 05/03 900 AC (Prinivil) Hydroxyzine HCl 50 MG BID 05/02 2100 AC (Atarax) Trazodone HCl 100 MG QPM 05/02 2100 AC (Desyrel) Hydromorphone HCl 0.4 MG Q6P PRN 05/02 1830 AC 05/02 (Dilaudid) 191 Ondansetron HCl 4 MG Q6P PRN 05/02 173 AC (Zofran) Morphine Sulfate 2 MG ONCE ONE 05/02 930 CAN (Morphine) 05/02 931 Laboratory Tests 05/02/18 1750: CBC w Diff NO MAN DIFF REQ, RBC 3.95 L, MCV 71.5 L, MCH 22.8 L, MCHC 31.9 L, RDW 17.9 H, MPV 7.3 L, Gran % 58.5, Lymphocytes % 26.6, Monocytes % 10.4 H, Eosinophils % 3.5, Basophils % 1.0, Absolute Granulocytes 2.9, Absolute Lymphocytes 1.3, Absolute Monocytes 0.5, Absolute Eosinophils 0.2, Absolute Basophils 0 05/02/18 1055: Urine Color BLDY H, Urine Clarity CLDY H, Urine pH 6.5, Ur Specific [place] 1.025, Urine Protein 30 H, Urine Ketones NEG, Urine Nitrite NEG, Urine Bilirubin NEG, Urine Urobilinogen 0.2, Ur Leukocyte Esterase TRACE H, Ur Microscopic SEDIMENT EXAMINED, Urine RBC >75 H, Urine WBC RARE, Urine Bacteria RARE H, Urine Hemoglobin LARGE H, Urine Glucose 250 H 05/02/18 0910: Anion Gap 12, Estimated GFR > 60, BUN/Creatinine Ratio 8.6, Glucose 147 H, Calcium 9.7, Iron 41 L, TIBC 504 H, Ferritin 6.7 L, Total Bilirubin 0.5, AST 31, ALT 38, Alkaline Phosphatase 73, Total Protein 6.3, Albumin 3.6, Globulin 2.7, Albumin/Globulin Ratio 1.3, PT 11.1, INR 1.02, APTT 39 H, CBC w Diff NO MAN DIFF REQ, RBC 4.59 L, MCV 71.7 L, MCH 23.2 L, MCHC 32.3 L, RDW 17.7 H, MPV 7.3 L, Gran % 69.1, Lymphocytes % 15.8 L, Monocytes % 10.1 H, Eosinophils % 3.7, Basophils % 1.3, Absolute Granulocytes 3.7, Absolute Lymphocytes 0.8 L, Absolute Monocytes 0.5, Absolute Eosinophils 0.2, Absolute Basophils 0.1, Retic Count 2.24 H Microbiology 05/02 1055 URINE ROUT: Urine Culture - RECD CT scan shows new stone in right UVJ 4 mm in size. Patient reports some relief following IV morphine however is still in considerable amount of pain. Patient does not feel comfortable going home on oral pain medication, he states his pain is more severe than he has had with previous kidney stones. Awaiting urology consult. Dr. Mnazano spoke with Dr. Barrett regarding this patient. Dr. Barrett will take patient to OR for stent placement today. The patient agrees with this plan. Diagnostic Imaging: Viewed by Me: CT Scan, Ultrasound. Discussed w/RAD: CT Scan, Ultrasound. Radiology Impression: PATIENT: LACI FRANCIS PRESENT AGE: 47 PATIENT ACCOUNT NO: [id number] : 70 LOCATION: [facility] ORDERING PHYSICIAN: Belem ECHEVARRIA SERVICE DATE: 05/02/18 EXAM TYPE: US - US-RENAL/KIDNEY EXAMINATION: US RETROPERITONEAL COMPLETE (RENAL) CLINICAL INFORMATION: Left flank pain radiating to the groin. COMPARISON: CT of the abdomen and pelvis from 04/26/2018. Renal ultrasound from 04/09/2018. TECHNIQUE: Real-time imaging of the kidneys and bladder. FINDINGS: RIGHT KIDNEY: 12.8 x 6.3 x 6.3 cm (SAG x AP x TRV). The kidney is normal in size, contour, and echogenicity. Renal cortical thickness is normal. A punctate stone in the lower pole of the right kidney seen on CT is not sonographically visualized. Small cysts are documented including a 1 cm cyst and a 7 mm cyst in the upper pole. LEFT KIDNEY: 12.7 x 6.3 x 5.0 cm (SAG x AP x TRV). The kidney is normal in size, contour, and echogenicity. Renal cortical thickness is normal. A 1.2 cm cyst is documented in the upper pole. A punctate stone in the lower pole of the left kidney seen on CT is not sonographically visualized. BLADDER: The patient voided before the exam. The post void bladder volume is 55 mL. Both ureteral jets were documented. The technologist measured an area of echogenicity along the deep aspect of the bladder, which based on size cannot correlate with the distal ureteral stone previously noted. This may be artifactual. The prostate is measured at 4.5 x 3.7 x 5.0 cm for a volume of 43 mL, and a coarse calcification within it is documented. IMPRESSION: No evidence of hydronephrosis. The CT visualized distal right ureteral stone is not definitively visualized on the current study, nor are tiny nonobstructing stones seen on CT in the lower poles of both kidneys. DICTATED BY: Izzy Mcrae MD DATE/TIME DICTATED:05/02/181042 COMMERCIAL PRODUCER:PRETTY DATE/TIME TRANSCRIBED:05/02/181042 CONFIDENTIAL, DO NOT COPY WITHOUT APPROPRIATE AUTHORIZATION. <Electronically signed in Other Vendor System> SIGNED BY: Izzy Mcrae MD 05/02/18 1055, PATIENT: LACI FRANCIS PRESENT AGE: 47 PATIENT ACCOUNT NO: [id number] : 70 LOCATION: [facility] ORDERING PHYSICIAN: Belem ECHEVARRIA SERVICE DATE: 05/02/18 EXAM TYPE: CAT - CT ABD & PELVIS W/O IV CONTRAS EXAMINATION: CT ABDOMEN AND PELVIS WITHOUT CONTRAST CLINICAL INFORMATION : Severe left flank pain radiating to groin. Rule out nephrolithiasis. COMPARISON: Renal ultrasound dated 05/02/2018 and 04/09/2018. CT scan of the abdomen and pelvis dated 04/26/2018, 04/05/2018, 03/10/2018 and 01/11/2018. TECHNIQUE: Multidetector volumetric imaging was performed from the superior aspect of the liver through the pubic symphysis. Sagittal and coronal reformatted images were obtained on the technologist workstation. DLP: 984.54 mGy-cm. FINDINGS: LUNG BASES: The visualized lung bases are unremarkable. LIVER, GALLBLADDER, AND BILIARY TREE: The liver is normal in size, shape, and attenuation. There is some ill-defined heterogeneity seen along the peripheral margin of the hepatic dome, unchanged dating back to 01/11/2018, most likely representing volume averaging with the diaphragm. Small calcified granuloma is seen in the left lobe of the liver, unchanged. No focal hepatic lesion on noncontrast imaging. No biliary ductal dilatation is present. The gallbladder is not seen. PANCREAS: Fatty infiltration of the pancreatic head is seen. Remainder of the pancreas is unremarkable on noncontrast study. SPLEEN, ADRENAL GLANDS: A 1.9 cm diameter accessory splenule is seen along the inferior margin of the splenic hilum, unchanged. Spleen and adrenal glands unremarkable. KIDNEYS AND URETERS: The kidneys are normal in size, shape, and attenuation. Again seen are multiple hyperdensities at the corticomedullary junction of the right and left kidney, consistent with medullary nephrocalcinosis. There are likely also a few bilateral hyperdense cysts with attenuation values ranging up to 76 Hounsfield units, most consistent with hyperdense proteinaceous or hemorrhagic cysts. Largest of these is seen in the mid right kidney (series 2, image 41), measuring 1 cm in diameter. Similar findings have been seen previously. There is a nonobstructing 0.2 cm calcification in the lower pole of the left kidney. No hydronephrosis or hydroureter seen. No perinephric stranding. There is, however, a 0.4 x 0.3 cm calcification in the distal right ureter at the ureterovesical junction (series 2, image 87) with pixel attenuation values ranging up to 438 Hounsfield units. This may represent a uric acid stone. No other ureteral calculi are seen. BLADDER: Partially distended and unremarkable. PELVIC VISCERA: Unremarkable. GASTROINTESTINAL TRACT: There is a small hiatal hernia. The patient is status post gastric bypass procedure with antecolic Fatimah-en-Y limb and the left upper quadrant bowel anastomosis appearing unremarkable. The small and large bowel are otherwise decompressed and unremarkable. The appendix is unremarkable. ABDOMINAL WALL: There is a small fat-containing direct right inguinal hernia and a tiny fat-containing direct left inguinal hernia with surrounding fascial thickening and overlying soft tissue fat stranding, unchanged from prior studies, most likely related to sequelae of previous left hernia surgery. LYMPH NODES, VASCULAR: Abdominal aorta normal in caliber with moderate atherosclerotic calcification seen distally. Incidentally noted is a retroaortic left renal vein. No significant abdominal or pelvic adenopathy or free fluid collection. OSSEOUS STRUCTURES: Moderate vertebral spondylosis is seen in the lower thoracic spine. IMPRESSION: 1. 0.4 x 0.3 cm calcification in the distal right ureter is seen at the ureterovesical junction. This is new compared to the prior exam and does not cause significant hydrocele ureter nephrosis. 2. Bilateral nephrocalcinosis and lower pole left renal nonobstructing calcification again noted, unchanged. There are likely scattered small hemorrhagic or proteinaceous cysts also seen. 3. Postsurgical changes related to prior gastric bypass procedure. Associated small hiatal hernia is seen. 4. Small bilateral fat-containing inguinal hernias, unchanged. DICTATED BY : Cassy Eastman MD DATE/TIME DICTATED:05/02/181229 COMMERCIAL PRODUCER: PRETTY DATE/TIME TRANSCRIBED:05/02/181229 CONFIDENTIAL, DO NOT COPY WITHOUT APPROPRIATE AUTHORIZATION. <Electronically signed in Other Vendor System> SIGNED BY: Cassy Eastman MD 05/02/18 1303 Initial ED EKG: none (Amanda ECHEVARRIA,Belem Hyde) Departure Departure Disposition: STILL A PATIENT Condition: Stable Clinical Impression Primary Impression: Nephrolithiasis Secondary Impressions: Renal colic Referrals: Unknown (PCP/Family) Departure Forms: Customer Survey General Discharge Information OR/GI Note Spoke With: José Luis Barrett MD ED Treatment Decision: LACI FRANCIS requires urgent operative management or an emergent procedure that cannot be performed in the Emergency Room setting. Transport To: [facility] (Belem Moreland) PA/INFRASTRUCTURE SECURITY ARCHITECT Co-Sign Statement Statement: ED Attending supervision documentation- [x] I saw and evaluated the patient. I have also reviewed all the pertinent lab results and diagnostic results. I agree with the findings and the plan of care as documented in the PA's/INFRASTRUCTURE SECURITY ARCHITECT's documentation. [] I have reviewed the ED Record and agree with the PA's/INFRASTRUCTURE SECURITY ARCHITECT's documentation. [] Additions or exceptions (if any) to the PAs/INFRASTRUCTURE SECURITY ARCHITECT's note and plan are summarized below: [] The patient was complaining of ongoing flank pain. No acute distress on my evaluation. Taken to the OR by Dr. Barrett. (Maurice Manzano DO
[2018-05-02 09:26] LABS: ABSOLUTE BASOPHIL COUNT 0.1 /CUMM (0.0-0.2); ABSOLUTE EOSINOPHIL COUNT 0.2 /CUMM (0.0-0.7); ABSOLUTE GRANULOCYTE CT 3.7 /CUMM (1.4-6.5); ABSOLUTE LYMPH COUNT 0.8 /CUMM (1.2-3.4); ABSOLUTE MONOCYTE COUNT 0.5 /CUMM (0.10-0.60); BASOPHIL % 1.3 % (0.0-2.0); EOSINOPHIL % 3.7 % (0-5); GRANULOCYTE % 69.1 % (42.2-75.2); HEMATOCRIT 32.9 % (42-52); MEAN CORPUSCULAR HGB 23.2 PG (27.0-31.0); MEAN CORPUSCULAR HGB CONC 32.3 G/DL (33.0-37.0); MEAN CORPUSCULAR VOLUME 71.7 FL (80.0-94.0); MEAN PLATELET VOLUME 7.3 FL (7.4-10.4); PLATELET COUNT 398 /CUMM (130-400); RBC DISTRIBUTION WIDTH 17.7 % (11.5-14.5); RED BLOOD CELL CT 4.59 /CUMM (4.70-6.10); WHITE BLOOD CELL COUNT 5.4 /CUMM (4.8-10.8)
[2018-05-02 09:39] LABS: PT 11.1 SEC (9.4-12.5); PTT 39 SEC (25-37)
--- NOTE | 2018-05-02 10:55 | ULTRASOUND REPORT ---
EXAMINATION: US RETROPERITONEAL COMPLETE (RENAL) CLINICAL INFORMATION: Left flank pain radiating to the groin. COMPARISON: CT of the abdomen and pelvis from 04/26/2018. Renal ultrasound from 04/09/2018. TECHNIQUE: Real-time imaging of the kidneys and bladder. FINDINGS: RIGHT KIDNEY: 12.8 x 6.3 x 6.3 cm (SAG x AP x TRV). The kidney is normal in size, contour, and echogenicity. Renal cortical thickness is normal. A punctate stone in the lower pole of the right kidney seen on CT is not sonographically visualized. Small cysts are documented including a 1 cm cyst and a 7 mm cyst in the upper pole. LEFT KIDNEY: 12.7 x 6.3 x 5.0 cm (SAG x AP x TRV). The kidney is normal in size, contour, and echogenicity. Renal cortical thickness is normal. A 1.2 cm cyst is documented in the upper pole. A punctate stone in the lower pole of the left kidney seen on CT is not sonographically visualized. BLADDER: The patient voided before the exam. The post void bladder volume is 55 mL. Both ureteral jets were documented. The technologist measured an area of echogenicity along the deep aspect of the bladder, which based on size cannot correlate with the distal ureteral stone previously noted. This may be artifactual. The prostate is measured at 4.5 x 3.7 x 5.0 cm for a volume of 43 mL, and a coarse calcification within it is documented. IMPRESSION: No evidence of hydronephrosis. The CT visualized distal right ureteral stone is not definitively visualized on the current study, nor are tiny nonobstructing stones seen on CT in the lower poles of both kidneys.
--- NOTE | 2018-05-02 13:03 | CT SCAN REPORT ---
EXAMINATION: CT ABDOMEN AND PELVIS WITHOUT CONTRAST CLINICAL INFORMATION: Severe left flank pain radiating to groin. Rule out nephrolithiasis. COMPARISON: Renal ultrasound dated 05/02/2018 and 04/09/2018. CT scan of the abdomen and pelvis dated 04/26/2018, 04/05/2018, 03/10/2018 and 01/11/2018. TECHNIQUE: Multidetector volumetric imaging was performed from the superior aspect of the liver through the pubic symphysis. Sagittal and coronal reformatted images were obtained on the technologist workstation. DLP: 984.54 mGy-cm. FINDINGS: LUNG BASES: The visualized lung bases are unremarkable. LIVER, GALLBLADDER, AND BILIARY TREE: The liver is normal in size, shape, and attenuation. There is some ill-defined heterogeneity seen along the peripheral margin of the hepatic dome, unchanged dating back to 01/11/2018, most likely representing volume averaging with the diaphragm. Small calcified granuloma is seen in the left lobe of the liver, unchanged. No focal hepatic lesion on noncontrast imaging. No biliary ductal dilatation is present. The gallbladder is not seen. PANCREAS: Fatty infiltration of the pancreatic head is seen. Remainder of the pancreas is unremarkable on noncontrast study. SPLEEN, ADRENAL GLANDS: A 1.9 cm diameter accessory splenule is seen along the inferior margin of the splenic hilum, unchanged. Spleen and adrenal glands unremarkable. KIDNEYS AND URETERS: The kidneys are normal in size, shape, and attenuation. Again seen are multiple hyperdensities at the corticomedullary junction of the right and left kidney, consistent with medullary nephrocalcinosis. There are likely also a few bilateral hyperdense cysts with attenuation values ranging up to 76 Hounsfield units, most consistent with hyperdense proteinaceous or hemorrhagic cysts. Largest of these is seen in the mid right kidney (series 2, image 41), measuring 1 cm in diameter. Similar findings have been seen previously. There is a nonobstructing 0.2 cm calcification in the lower pole of the left kidney. No hydronephrosis or hydroureter seen. No perinephric stranding. There is, however, a 0.4 x 0.3 cm calcification in the distal right ureter at the ureterovesical junction (series 2, image 87) with pixel attenuation values ranging up to 438 Hounsfield units. This may represent a uric acid stone. No other ureteral calculi are seen. BLADDER: Partially distended and unremarkable. PELVIC VISCERA: Unremarkable. GASTROINTESTINAL TRACT: There is a small hiatal hernia. The patient is status post gastric bypass procedure with antecolic Fatimah-en-Y limb and the left upper quadrant bowel anastomosis appearing unremarkable. The small and large bowel are otherwise decompressed and unremarkable. The appendix is unremarkable. ABDOMINAL WALL: There is a small fat-containing direct right inguinal hernia and a tiny fat-containing direct left inguinal hernia with surrounding fascial thickening and overlying soft tissue fat stranding, unchanged from prior studies, most likely related to sequelae of previous left hernia surgery. LYMPH NODES, VASCULAR: Abdominal aorta normal in caliber with moderate atherosclerotic calcification seen distally. Incidentally noted is a retroaortic left renal vein. No significant abdominal or pelvic adenopathy or free fluid collection. OSSEOUS STRUCTURES: Moderate vertebral spondylosis is seen in the lower thoracic spine. IMPRESSION: 1. 0.4 x 0.3 cm calcification in the distal right ureter is seen at the ureterovesical junction. This is new compared to the prior exam and does not cause significant hydrocele ureter nephrosis. 2. Bilateral nephrocalcinosis and lower pole left renal nonobstructing calcification again noted, unchanged. There are likely scattered small hemorrhagic or proteinaceous cysts also seen. 3. Postsurgical changes related to prior gastric bypass procedure. Associated small hiatal hernia is seen. 4. Small bilateral fat-containing inguinal hernias, unchanged.
--- NOTE | 2018-05-02 15:13 | Cons- Urology ---
General Information and HPI Consulting Request Date of Consult: 05/02/18 Requested By: DO Rome GREGORY-PRASANNA Reason for Consult: SEVERE RIGHT COLIC WITH HYDRO. Source of Information: patient, old records Exam Limitations: no limitations History of Present Illness: 47 YR OLD WITH SUDDEN ONSET RIGHT COLIC: HX STONES-NOW WITH RIGHT URETER STONE- WILL NEED URERTEROSCOPY HEMOPHELIA GROSS HEMATURIA WITH CYSTO-HX BILAT. STONES GASTRIC BYPASS Allergies/Medications Allergies: Coded Allergies: acetaminophen (Severe, LIVER BLEEDING 01/20/18) adhesive (Intermediate, SKIN IRRITATION 02/06/18) NSAIDS (Non-Steroidal Anti-Inflamma (HEMOPHILIA 01/11/18) fentanyl (RASH/BURNING 03/10/18) Home Med List: Amlodipine Besylate 10 MG TABLET 1 TAB PO DAILY BP (Reported) Ascorbate Calcium (Vitamin C) (Unknown Strength) TABLET (Unknown Dose) PO DAILY SUPPLEMENT (Reported) Cephalexin (Keflex) 500 MG CAPSULE 1 CAP PO BID UTI Cholecalciferol (Vitamin D3) (Vitamin D) (Unknown Strength) TABLET (Unknown Dose) PO DAILY SUPPLEMENT (Reported) Duloxetine Hydrochloride (Cymbalta) 30 MG CAPSULE.DR 90 MG PO DAILY NERVE PAIN (Reported) Factor XIII (Corifact) 1,000 UNIT-1,600 UNIT KIT 0 INJ AD PRN BLEEDING ( Reported) Hydroxyzine HCl (hydrOXYzine HCl) 25 MG TABLET 2 TAB PO BID ANXIETY (Reported ) Lisinopril 20 MG TABLET 1 TAB PO DAILY BP (Reported) Methocarbamol (Robaxin-750) 750 MG TABLET 1 TAB PO TID PRN PAIN Ondansetron (Zofran Odt) 4 MG TAB.RAPDIS 1 TAB SL TID Nausea and Vomiting Oxycodone HCl 5 MG TABLET 1 TAB PO 4XDP PRN SEVERE PAIN Oxycodone HCl 5 MG TABLET 1 TAB PO 4XDP PRN SEVERE PAIN Oxycodone HCl 5 MG CAPSULE 1 CAP PO 4XDP Kidney Stones Oxycodone HCl 10 MG TABLET 10 MG PO Q6-PRN PRN pain Oxycodone HCl/Acetaminophen (Percocet 5-325 MG Tablet) 5 MG-325 MG TABLET 1 TAB PO BID PAIN Sulfamethoxazole/Trimethoprim (Bactrim Ds Tablet) 800 MG-160 MG TABLET 1 TAB PO BID uti Suvorexant (Belsomra) 20 MG TABLET 1 TAB PO QPM SLEEP (Reported) Trazodone HCl 100 MG TABLET 1 TAB PO QPM SLEEP (Reported) Vitamin B Complex 1 EACH CAPSULE 1 CAP PO DAILY SUPPLEMENT (Reported) Current Medications: Current Medications Sig/Antonia Start time Last Medication Dose Route Stop Time Status Admin Morphine Sulfate 0 .STK-MED ONE 05/02 1150 DC .ROUTE Morphine Sulfate 8 MG ONCE ONE 05/02 1145 DC / IV 05/02 1146 1146 Morphine Sulfate 2 MG ONCE ONE 05/02 0930 CAN IV 05/02 0931 Morphine Sulfate 0 .STK-MED ONE 05/02 0909 DC .ROUTE Morphine Sulfate 6 MG ONCE ONE 05/02 09 DC / IV / 0901 0910 Ondansetron HCl 0 .STK-MED ONE 05/02 0909 DC .ROUTE Ondansetron HCl 4 MG ONCE ONE 05/02 0900 DC / IV / 0901 0910 Sodium Chloride 1,000 ML BOLUS ONE 05/02 1145 DC / IV 06/ 1244 1146 Sodium Chloride 1,000 ML BOLUS ONE 05/02 0900 DC 06/ IV / 0959 0910 Past History Medical History Neurological: migraine EENT: NONE Cardiovascular: hypertension Respiratory: NONE Gastrointestinal: NONE Hepatic: "CLOT ON LIVER" PER PT Renal: kidney stones Musculoskeletal: NONE Psychiatric: anxiety, depression Endocrine: NONE Blood Disorders: hemophilia Cancer(s): NONE SITE SUPERINTENDENT/Reproductive: NONE Surgical History Pertinent Surgical History: non-contributory Family History Relations & Conditions If Any: cousin Hemophilia A Psychosocial History Services at Home: None Functional Ability ADLs Independent: dressing, eating, toileting, bathing. Ambulation: independent IADLs Independent: shopping, housework, finances, food prep, telephone, transportation , medication admin. Employment History Retired? unknown Review of Systems Review of Systems Constitutional: Reports: see HPI. EENTM: Denies: no symptoms. Cardiovascular: Denies: no symptoms. Respiratory: Denies: no symptoms. GI: Reports: abdominal pain, bloating. Genitourinary: Reports: dysuria, hematuria. Musculoskeletal: Denies: no symptoms. Skin: Denies: no symptoms. Exam & Diagnostic Data Vital Signs and I&O Vital Signs Date Time Temp Pulse Resp B/P B/P Pulse O2 O2 Flow FiO2 Mean Ox Delivery Rate 05/02 1436 98.2 93 18 127/91 96 05/02 0918 98 Room Air 05/02 0838 98.4 114 18 170/98 98 Room Air Intake & Output 05/02 1600 05/02 0800 05/02 0000 05/01 1600 05/01 0800 05/01 0000 Intake Total 1000 Output Total Balance 1000 Intake, IV 1000 Patient 230 lb Weight Weight Reported by Patient Measurement Method Physical Exam General Appearance: well developed/nourished Head: atraumatic Eyes: Bilateral: normal appearance. Neck: normal inspection Respiratory: normal breath sounds Cardiovascular: regular rate/rhythm Gastrointestinal: normal bowel sounds Back: CVA tenderness (R) Extremities: normal inspection Reproductive: Normal male genitalia Last 24 Hours of Labs: Laboratory Tests 05/02 05/02 1055 0910 Chemistry Sodium (137 - 145 mmol/L) 143 Potassium (3.5 - 5.1 mmol/L) 4.0 Chloride (98 - 107 mmol/L) 109 H Carbon Dioxide (22 - 30 mmol/L) 23 Anion Gap (5 - 16) 12 BUN (9 - 20 mg/dL) 6 L Creatinine (0.7 - 1.2 mg/dL) 0.7 Estimated GFR (>60 ml/min) > 60 BUN/Creatinine Ratio (7 - 25 %) 8.6 Glucose (65 - 99 mg/dL) 147 H Calcium (8.4 - 10.2 mg/dL) 9.7 Total Bilirubin (0.2 - 1.3 mg/dL) 0.5 AST (17 - 59 U/L) 31 ALT (21 - 72 U/L) 38 Alkaline Phosphatase (< 127 U/L) 73 Total Protein (6.3 - 8.2 g/dL) 6.3 Albumin (3.5 - 5.0 g/dL) 3.6 Globulin (1.9 - 4.2 gm/dL) 2.7 Albumin/Globulin Ratio (1.1 - 2.2 %) 1.3 Coagulation PT (9.4 - 12.5 SEC) 11.1 INR (0.90 - 1.17) 1.02 APTT (25 - 37 SEC) 39 H Hematology CBC w Diff NO MAN DIFF REQ WBC (4.8 - 10.8 /CUMM) 5.4 RBC (4.70 - 6.10 /CUMM) 4.59 L Hgb (14.0 - 18.0 G/DL) 10.6 L Hct (42 - 52 %) 32.9 L MCV (80.0 - 94.0 FL) 71.7 L MCH (27.0 - 31.0 PG) 23.2 L MCHC (33.0 - 37.0 G/DL) 32.3 L RDW (11.5 - 14.5 %) 17.7 H Plt Count (130 - 400 /CUMM) 398 MPV (7.4 - 10.4 FL) 7.3 L Gran % (42.2 - 75.2 %) 69.1 Lymphocytes % (20.5 - 51.1 %) 15.8 L Monocytes % (1.7 - 9.3 %) 10.1 H Eosinophils % (0 - 5 %) 3.7 Basophils % (0.0 - 2.0 %) 1.3 Absolute Granulocytes (1.4 - 6.5 /CUMM) 3.7 Absolute Lymphocytes (1.2 - 3.4 /CUMM) 0.8 L Absolute Monocytes (0.10 - 0.60 /CUMM) 0.5 Absolute Eosinophils (0.0 - 0.7 /CUMM) 0.2 Absolute Basophils (0.0 - 0.2 /CUMM) 0.1 Urines Urine Color (YEL,AMB,STR) BLDY H Urine Clarity (CLEAR) CLDY H Urine pH (5.0 - 8.0) 6.5 Ur Specific Hammond (1.001 - 1.035) 1.025 Urine Protein (NEG,<30 MG/DL) 30 H Urine Ketones (NEG) NEG Urine Nitrite (NEG) NEG Urine Bilirubin (NEG) NEG Urine Urobilinogen (0.1 - 1.0 EU/dl) 0.2 Ur Leukocyte Esterase (NEG) TRACE H Ur Microscopic SEDIMENT EXAMINED Urine RBC (0 - 5 /HPF) >75 H Urine WBC (0 - 2 /HPF) RARE Urine Bacteria (NEG/NONE) RARE H Urine Hemoglobin (NEG) LARGE H Urine Glucose (N MG/DL) 250 H Imaging Results: PATIENT: LACI FRANCIS PRESENT AGE: 47 PATIENT ACCOUNT NO: [id number] : 70 LOCATION: [facility] ORDERING PHYSICIAN: Belem ECHEVARRIA SERVICE DATE: 06/07/18-1135 EXAM TYPE: CAT - CT ABD & PELVIS W/O IV CONTRAS EXAMINATION: CT ABDOMEN AND PELVIS WITHOUT CONTRAST CLINICAL INFORMATION: Severe left flank pain radiating to groin. Rule out nephrolithiasis. COMPARISON: Renal ultrasound dated 05/02/2018 and 04/09/2018. CT scan of the abdomen and pelvis dated 04/26/2018, 04/05/2018, 03/10/2018 and 01/11/2018. TECHNIQUE: Multidetector volumetric imaging was performed from the superior aspect of the liver through the pubic symphysis. Sagittal and coronal reformatted images were obtained on the technologist workstation. DLP: 984.54 mGy-cm. FINDINGS: LUNG BASES: The visualized lung bases are unremarkable. LIVER, GALLBLADDER, AND BILIARY TREE: The liver is normal in size, shape, and attenuation. There is some ill-defined heterogeneity seen along the peripheral margin of the hepatic dome, unchanged dating back to 01/11/2018, most likely representing volume averaging with the diaphragm. Small calcified granuloma is seen in the left lobe of the liver, unchanged. No focal hepatic lesion on noncontrast imaging. No biliary ductal dilatation is present. The gallbladder is not seen. PANCREAS: Fatty infiltration of the pancreatic head is seen. Remainder of the pancreas is unremarkable on noncontrast study. SPLEEN, ADRENAL GLANDS: A 1.9 cm diameter accessory splenule is seen along the inferior margin of the splenic hilum, unchanged. Spleen and adrenal glands unremarkable. KIDNEYS AND URETERS: The kidneys are normal in size, shape, and attenuation. Again seen are multiple hyperdensities at the corticomedullary junction of the right and left kidney, consistent with medullary nephrocalcinosis. There are likely also a few bilateral hyperdense cysts with attenuation values ranging up to 76 Hounsfield units, most consistent with hyperdense proteinaceous or hemorrhagic cysts. Largest of these is seen in the mid right kidney (series 2, image 41), measuring 1 cm in diameter. Similar findings have been seen previously. There is a nonobstructing 0.2 cm calcification in the lower pole of the left kidney. No hydronephrosis or hydroureter seen. No perinephric stranding. There is, however, a 0.4 x 0.3 cm calcification in the distal right ureter at the ureterovesical junction (series 2, image 87) with pixel attenuation values ranging up to 438 Hounsfield units. This may represent a uric acid stone. No other ureteral calculi are seen. BLADDER: Partially distended and unremarkable. PELVIC VISCERA: Unremarkable. GASTROINTESTINAL TRACT: There is a small hiatal hernia. The patient is status post gastric bypass procedure with antecolic Fatimah-en-Y limb and the left upper quadrant bowel anastomosis appearing unremarkable. The small and large bowel are otherwise decompressed and unremarkable. The appendix is unremarkable. ABDOMINAL WALL: There is a small fat-containing direct right inguinal hernia and a tiny fat-containing direct left inguinal hernia with surrounding fascial thickening and overlying soft tissue fat stranding, unchanged from prior studies, most likely related to sequelae of previous left hernia surgery. LYMPH NODES, VASCULAR: Abdominal aorta normal in caliber with moderate atherosclerotic calcification seen distally. Incidentally noted is a retroaortic left renal vein. No significant abdominal or pelvic adenopathy or free fluid collection. OSSEOUS STRUCTURES: Moderate vertebral spondylosis is seen in the lower thoracic spine. IMPRESSION: 1. 0.4 x 0.3 cm calcification in the distal right ureter is seen at the ureterovesical junction. This is new compared to the prior exam and does not cause significant hydrocele ureter nephrosis. 2. Bilateral nephrocalcinosis and lower pole left renal nonobstructing calcification again noted, unchanged. There are likely scattered small hemorrhagic or proteinaceous cysts also seen. 3. Postsurgical changes related to prior gastric bypass procedure. Associated small hiatal hernia is seen. 4. Small bilateral fat-containing inguinal hernias, unchanged. DICTATED BY: Cassy Eastman MD DATE/TIME DICTATED:05/02/181229 LIVESTOCK RANCHER:PRETTY DATE/TIME TRANSCRIBED:05/02/181229 CONFIDENTIAL, DO NOT COPY WITHOUT APPROPRIATE AUTHORIZATION. <Electronically signed in Other Vendor System> SIGNED BY: Cassy Eastman MD [id number] Assessment/Plan Assessment/Plan RIGHT COLIC DUE TO STONE-SEVERE/CYSTO-RIGHT URETEROSCOPY (PT STATES SEVERE BLEEDING WITH STENTS IN PAST) Copies To: José Luis Barrett MD Consult Acknowledgment - Thank you for your consult request. Attending MD Review Statement Attending Statement Attending Statement: examined this patient, discuss w/resident/PA/RESEARCH HOME ECONOMIST Attending Assessment/Plan: RIGHT URETEROSCOPY NOW
--- NOTE | 2018-05-02 16:51 | History & Physical ---
Alphonso Banks 05/02/18 1651: General Information and HPI Source of Information: patient, old records Exam Limitations: no limitations History of Present Illness: Mr. 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 Barrett who currently requires close observation given his bleeding risk. Patient reports left flank pain prior to coming in the ED. He had a similar episode last Sunday and noticed he passed a tiny bloody stone over the weekend. His flank pain resolved with the passing of the stone but returned 2 days later. On Sunday he had a large amount of hematuria accompanied by flank pain that was progressively worse the following day. His brought him some [employer] light beer to help relieve the pain but to no avail. He finally decided to come in this morning after which he proceeded with a cystoscopy-right uteroscopy and lithotripsy. He reports this morning he self administered his IV dose of factor VIII. He obtains his own IV access twice daily. He does not have any visiting nurses due to insurance issues. He usually gets epistaxis and gingival bleeding with brushing his teeth. His last episode of epistaxis was 2 nights ago. In the PACU patient denies any fever, chills, nausea, vomiting, hematuria, BRBPR. Allergies/Medications Allergies: Coded Allergies: acetaminophen (Severe, LIVER BLEEDING 01/20/18) adhesive (Intermediate, SKIN IRRITATION 02/06/18) NSAIDS (Non-Steroidal Anti-Inflamma (HEMOPHILIA 01/11/18) fentanyl (RASH/BURNING 03/10/18) Observation Initial Note - I have personally examined LACI ERWIN on 05/02/18 at 1708. The disposition of LACI ERWIN is uncertain at this time and before a determination can be made, he requires a period of observation for the following reasons history of acute blood loss anemia Past History Travel History Traveled to [place] past 21 day No Medical History Neurological: migraine EENT: NONE Cardiovascular: hypertension Respiratory: NONE Gastrointestinal: NONE Hepatic: "CLOT ON LIVER" PER PT Renal: kidney stones Musculoskeletal: NONE Psychiatric: anxiety, depression Endocrine: NONE Blood Disorders: hemophilia Cancer(s): NONE DATA CENTER OPERATOR/Reproductive: NONE History of MRSA: No History of VRE: No History of CDIFF: No Surgical History Surgical History: non-contributory Past Family/Social History Family History Relations & Conditions if any cousin Hemophilia A Psychosocial History Services at Home: None Functional Ability ADLs Independent: dressing, eating, toileting, bathing. Ambulation: independent IADLs Independent: shopping, housework, finances, food prep, telephone, transportation , medication admin. Review of Systems Review of Systems Constitutional: Reports: see HPI. Exam & Diagnostic Data Last 24 Hrs of Vital Signs/I&O Vital Signs Date Time Temp Pulse Resp B/P B/P Pulse O2 O2 Flow FiO2 Mean Ox Delivery Rate 05/02 1436 98.2 93 18 127/91 96 05/02 0918 98 Room Air 05/02 0838 98.4 114 18 170/98 98 Room Air Intake & Output 05/02 1600 05/02 0800 05/02 0000 Intake Total 1000 Output Total Balance 1000 Intake, IV 1000 Patient 230 lb Weight Weight Reported by Patient Measurement Method Physical Exam General Appearance Alert, Oriented X3, Cooperative, No Acute Distress Skin No Rashes, No Breakdown, No Significant Lesion HEENT Atraumatic, PERRLA, EOMI, Mucous Membr. moist/pink Neck Supple, No JVD, No thryomegaly, No LAD Cardiovascular Regular Rate, Normal S1, Normal S2 Lungs Clear to Auscultation, Normal Air Movement Abdomen Normal Bowel Sounds, Soft, right CVA tenderness, LLQ tenderness on deep palpation Extremities Trace edema Last 24 Hrs of Labs/Joe: Laboratory Tests 05/02/18 1055: Urine Color BLDY H, Urine Clarity CLDY H, Urine pH 6.5, Ur Specific [place] 1.025, Urine Protein 30 H, Urine Ketones NEG, Urine Nitrite NEG, Urine Bilirubin NEG, Urine Urobilinogen 0.2, Ur Leukocyte Esterase TRACE H, Ur Microscopic SEDIMENT EXAMINED, Urine RBC >75 H, Urine WBC RARE, Urine Bacteria RARE H, Urine Hemoglobin LARGE H, Urine Glucose 250 H 05/02/18 0910: Anion Gap 12, Estimated GFR > 60, BUN/Creatinine Ratio 8.6, Glucose 147 H, Calcium 9.7, Total Bilirubin 0.5, AST 31, ALT 38, Alkaline Phosphatase 73, Total Protein 6.3, Albumin 3.6, Globulin 2.7, Albumin/Globulin Ratio 1.3, PT 11.1, INR 1.02, APTT 39 H, CBC w Diff NO MAN DIFF REQ, RBC 4.59 L, MCV 71.7 L, MCH 23.2 L, MCHC 32.3 L, RDW 17.7 H, MPV 7.3 L, Gran % 69.1, Lymphocytes % 15.8 L, Monocytes % 10.1 H, Eosinophils % 3.7, Basophils % 1.3, Absolute Granulocytes 3.7, Absolute Lymphocytes 0.8 L, Absolute Monocytes 0.5, Absolute Eosinophils 0.2, Absolute Basophils 0.1 Microbiology 05/02 1055 URINE ROUT: Urine Culture - RECD Diagnostic Data Other Results CT ABDOMEN AND PELVIS WITHOUT CONTRAST IMPRESSION: 1. 0.4 x 0.3 cm calcification in the distal right ureter is seen at the ureterovesical junction. This is new compared to the prior exam and does not cause significant hydrocele ureter nephrosis. 2. Bilateral nephrocalcinosis and lower pole left renal nonobstructing calcification again noted, unchanged. There are likely scattered small hemorrhagic or proteinaceous cysts also seen. 3. Postsurgical changes related to prior gastric bypass procedure. Associated small hiatal hernia is seen. 4. Small bilateral fat-containing inguinal hernias, unchanged. US-RENAL/KIDNEY IMPRESSION: No evidence of hydronephrosis. The CT visualized distal right ureteral stone is not definitively visualized on the current study, nor are tiny nonobstructing stones seen on CT in the lower poles of both kidneys. Assessment/Plan Assessment: Mr. Erwin is a 47 year old male with PMH of hemophilia A (dx 2014 after requiring multiple transfusion following a Fatimah-en-Y) on factor VIII, gastric bypass (2011), liver hematoma, hypertension, anxiety, depression, migraines, recurrent nephrolithiasis who presented to the ED with severe left flank pain now in the PACU s/p cystoscopy-right uteroscopy and lithotripsy #Left flank pain #Nonobstructing right calculus @ UVJ s/p cystoscopy-right uteroscopy and lithotripsy - POD 0 #History of acute blood loss anemia Plan: Placed on 23 hour observation for close monitoring Type and screen Repeat CBC prior to Factor VIII administration IV factor VIII BID Fe, ferritin, TIBC studies We will consider IV dextran Appreciate urology recommendations Avoid Acetaminophen We will hold off pharmacologic DVT prophylaxis due to history of hemophilia We will hold off on mtz placement as per Uro We will continue home meds Heme consult Diet: Heart healthy DVT prophylaxis: ALPS Code: Full As Ranked By This Provider Problem List: 1. Renal colic Core Measures/Misc (08/12) Acute Coronary Syndrome ACS Diagnosis: No Congestive Heart Failure Congestive Heart Failure Diagnosis No Cerebrovascular Accident CVA/TIA Diagnosis: No VTE (View Protocol) VTE Risk Factors Age>40 No Mechanical VTE Prophylaxis d/t N/A MechProphylax Ordered No VTE Pharm Prophylaxis d/t Medical Contraindication Sepsis (View protocol) Sepsis Present: No If YES complete Sepsis Event Note If YES complete Sepsis Event Note Jose M James MD 05/02/18 1715: Core Measures/Misc (08/12) Sepsis (View protocol) If YES complete Sepsis Event Note If YES complete Sepsis Event Note Attending MD Review Statement Attending Statement Attending MD Statement: examined this patient, discuss w/resident/PA/FLIGHT COMMUNICATIONS SPECIALIST, agreed w/resident/PA/FLIGHT COMMUNICATIONS SPECIALIST, reviewed EMR data (avail), discussed with nursing, discussed with case mgmt, amended to note Attending Assessment/Plan: Patient is a 47-year-old male with history of hemophilia A on therapy with factor VIII twice a day. History is also significant for chronic flank pain and chronic hematuria. He has history of multiple renal stones and status post multiple urologic procedures including lithotripsy, cystoscopy and stent placements. Recently evaluated in the emergency room but declined hospitalization. Returns today with complaints of flank pain and hematuria. Imaging studies in the emergency room revealed calcification in the distal right ureter at the urethrovesical junction. New compared to previous. No evidence of urinary obstruction was noted. Evaluated by the urologist and taken to the OR for urethroscopy. Renal stones were removed and patient transferred to the PACU in stable condition. Was then referred to the medical service for management of his comorbidities. On examination lying in bed complaining of flank pain. Denies nausea. Denies vomiting. Denies chest pain or palpitations. Denies shortness of breath. On examination he does not appear to be in any respiratory distress. Heart sounds are regular with no audible murmur. Lungs are clear to auscultation bilaterally. Abdomen is obese soft and nontender. Mild bilateral flank tenderness. No peripheral edema. Patient has history of chronic microcytic anemia. Hemoglobin level is stable compared to baseline. No evidence of renal insufficiency. Plan: -Placed on observation on the medical unit. -Repeat H&H later tonight and again in a.m. -Administer his factor VIII as prescribed at home. -Patient complains of ongoing pain. He reports that only Dilaudid works for him. Begin on Dilaudid 2 mg orally every 4 hours as needed pain. May utilize morphine 4 mg IV every 3 hours as needed breakthrough pain. -Begin patient on the bowel regimen to prevent opioid-induced constipation. Scott SHANKS,[facility] 05/02/18 9917: General Information and HPI Allergies/Medications Home Med list Amlodipine Besylate 10 MG TABLET 1 TAB PO DAILY BP (Reported) Ascorbate Calcium (Vitamin C) (Unknown Strength) TABLET (Unknown Dose) PO DAILY SUPPLEMENT (Reported) Cholecalciferol (Vitamin D3) (Vitamin D) (Unknown Strength) TABLET (Unknown Dose) PO DAILY SUPPLEMENT (Reported) Duloxetine Hydrochloride (Cymbalta) 30 MG CAPSULE.DR 90 MG PO DAILY NERVE PAIN (Reported) Hydroxyzine HCl (hydrOXYzine HCl) 25 MG TABLET 2 TAB PO BID ANXIETY (Reported ) Lisinopril 20 MG TABLET 1 TAB PO DAILY BP (Reported) Methocarbamol (Robaxin-750) 750 MG TABLET 1 TAB PO TID PRN PAIN Ondansetron (Zofran Odt) 4 MG TAB.RAPDIS 1 TAB SL TID Nausea and Vomiting Suvorexant (Belsomra) 20 MG TABLET 1 TAB PO QPM SLEEP (Reported) Trazodone HCl 100 MG TABLET 1 TAB PO QPM SLEEP (Reported) Vitamin B Complex 1 EACH CAPSULE 1 CAP PO DAILY SUPPLEMENT (Reported) Core Measures/Misc (08/12) Sepsis (View protocol) If YES complete Sepsis Event Note If YES complete Sepsis Event Note Resident Review Statement Resident Statement: examined this patient, discussed with partner marketing intern, agreed with partner marketing intern Other Findings: This is a 47-year-old male with past medical history significant for hemophilia, diagnosed in 2013, hypertension, gastric bypass in 2011 with recurrent bilateral nephrolithiasis with multiple lithotripsies and stent placements, migraine, hypertension, anxiety and depression with a R BBB seen in previous EKG, who comes in for chief complaint of left flank pain. Patient was here last Sunday for similar complaint of renal colic. But he went back home after pain management. He states he passed a stone fragment over the weekend. However, on Sunday he experience heavier than normal hematuria and a 10 fold increase in pain. He said it felt like his usual stone so he tried to drink several cans of beer and hope to "flush the stone out." The pain and hematuria did not resolve so he decided to come to the ED. CAT scan in ED showed 0.40.3 nonobstructing calculus in the UVJ which was not previously seen. Dr. Barrett was consulted and he performed ureteroscopy and lithotripsy without stent placement on a right sided calculi. Patient is coming to general medicine team after procedure for further monitoring and management of possible blood loss. Vitals: 98.4, heart rate between 114 and 93, respiratory rate 18, blood pressure 127/91 to 170/98, satting 96% on room air. HEENT: Pupils equal and reactive. EOMI Cardiovascular: Nml s1/s2; no murmurs Skin: no erythema, rash or wounds present. Respiratory:CTAB GI: Pt has tenderness in LUQ, some CVA on l. side. He also and some tenderness below umbilicus to deep palpation that radiates to his groin. EXT: Trace edema in bilat LE. Labs: Hemoglobin 10.6, hematocrit 32.9. MCV 71.7. Platelet 398. PT 11.1, INR 1.02, APTT 39. CAT scan showing evidence of nephrolithiasis that is nonobstructing in UVJ. And some bilateral inguinal anal hernias. Assessment: This is a 47-year-old male with past nuchal history significant for hemophilia, hypertension, gastric bypass, recurrent bilateral nephrolithiasis status post multiple lithotripsies and stent placements, who comes in for chief complaint of left-sided renal colic. He is status post ureteroscopy and lithotripsy. Patient is under obstetrical is 4 monitoring of blood loss and potential hemogenic instability. Problem list: 1. Hemophilia a 2. Nephrolithiasis now status post lithotripsy 3. Microcytic anemia Plan: 1.Nephrolithiasis: status post lithotripsy in hemophiliac: * Pain management with IV Dilaudid as patient cannot take NSAIDs or Tylenol * Zofran when necessary * Avoid Mtz * Monitor ins and outs * Type and screen * Repeat CBC * We'll place hematology oncology consult to get more recommendations regarding factor replacement in hemophilia. Pt on reg of scheduled BID factor replacement on a daily basis. He does not have a heme/onc physician in [place]. 2. Microcytic anemia: Patient has Hemophilia A which likely results in constant blood loss but to add insult injury, he has history of gastric bypass which likely prevents him from absorbing iron. He is currently not following with the bariatric surgeon as he is uninsured, but he states he is taking many supplements. * Check Iron panel * Check B12 * Check folate 3. HTN: Con't home meds FC NO CHEM PPX REG DIET
[2018-05-02 18:05] LABS: ABSOLUTE BASOPHIL COUNT 0 /CUMM (0.0-0.2); ABSOLUTE EOSINOPHIL COUNT 0.2 /CUMM (0.0-0.7); ABSOLUTE GRANULOCYTE CT 2.9 /CUMM (1.4-6.5); ABSOLUTE LYMPH COUNT 1.3 /CUMM (1.2-3.4); ABSOLUTE MONOCYTE COUNT 0.5 /CUMM (0.10-0.60); EOSINOPHIL % 3.5 % (0-5); GRANULOCYTE % 58.5 % (42.2-75.2); HEMATOCRIT 28.2 % (42-52); MEAN CORPUSCULAR HGB 22.8 PG (27.0-31.0); MEAN CORPUSCULAR HGB CONC 31.9 G/DL (33.0-37.0); MEAN CORPUSCULAR VOLUME 71.5 FL (80.0-94.0); MEAN PLATELET VOLUME 7.3 FL (7.4-10.4); PLATELET COUNT 334 /CUMM (130-400); RBC DISTRIBUTION WIDTH 17.9 % (11.5-14.5); RED BLOOD CELL CT 3.95 /CUMM (4.70-6.10); WHITE BLOOD CELL COUNT 4.9 /CUMM (4.8-10.8)
[2018-05-02 18:45] VITALS: BP 140/74
--- NOTE | 2018-05-02 18:48 | Operative Report ---
Operative/Inv Procedure Report Surgery Date: 05/02/18 Name of Procedure: cystoscopy: right ureteroscopy, laser litho.of ureter stone. Pre-Operative Diagnosis: right ureter stone 5mm with severe colic/nausea Post-Operative Diagnosis: same Estimated Blood Loss: ricardo Surgeon/Art Therapy Certified Supervisor: José Luis Barrett MD Anesthesia: laryngeal mask airway Specimens: Right ureter stones 2 Complications: None Condition: Improved with patient pain free Operative/Procedure Note Note: The patient was taken to the operating room placed on the OR table in supine position. Timeout was performed in order to confirm the patient's identity, planned procedure, laterality, and other pertinent jass-operative information with the patient awake. After adequate anesthesia and antibiotics, the patient was then placed in lithotomy stirrups, draped and prepped in the usual surgical fashion. A 22 [place] cystoscope sheath with 30 angle lens was inserted into the urethra and bladder without difficulty. Upon entering the bladder, the bladder was noted to be free of tumor free of stone. Both orifices were in their orthotopic position. The left ureteral orifices had clear yellow efflux, and no efflux from the right despite parastalsis. The right ureteral orifice was then intubated with a 5 [place] open ended ureteral stent. Performed revealing a ureteral stone and proximal hydronephrosis. The open-ended ureteral access stent was then removed. Under direct visualization, a 0.035 Glidewire was inserted through the cystoscope into the right ureteral orifice, and advanced into the right renal pelvis without significant difficulty. Correct placement of this gluide wire was confirmed on fluoroscopy. The cystoscope was then removed, after draining the bladder, and leaving the Glidewire in place. Using a Micro-6 rigid ureteroscope, the ureteroscope re-entered the bladder following the gluidewire, and assisted by fluoroscopic visualization. The ureteroscope was then gently inserted alongside the Glidewire, into the right orifice, The ureteroscope was then advanced under direct visualization without difficulty. The obstructing stones was seen in the ureter. Under direct visualization, the 275 g YAG laser fiber was inserted through the ureteroscope, and placed in direct contact with the stone. The YAG laser was then activated, and laser lithotrypsy of the stone persisted until all large fragments were pluvorized into tiny fragments. Multiple fragments were irrigated out without difficulty and sent to pathology for stone analysis. After all the large stone fragments were cleared of the ureter, the ureteroscope was as further advanced into the right proximal ureter and renal pelvis revealing no tumor and no additional stones. The ureteroscope was then removed slowly, and under direct visualization, no stone, or tumor was seen on the way out. A final retrograde pyelogram with contrast was performed in order to confirm that there were no additional tumor, or stone was seen. Brisk reflux the contrast material ensured after completely removing the ureteroscope. All sponge needle and instrument count were correct at the end of the case. The bladder was then drained after the ureteroscope was then removed. The patient tolerated the procedures well was then taken to the recovery room in satisfactory condition. Discharge Disposition: PACU CC: José Luis Barrett MD
[2018-05-02 22:21] VITALS: BP 128/98
[2018-05-03 04:51] LABS: ABSOLUTE BASOPHIL COUNT 0.1 /CUMM (0.0-0.2); ABSOLUTE EOSINOPHIL COUNT 0.2 /CUMM (0.0-0.7); ABSOLUTE GRANULOCYTE CT 2.3 /CUMM (1.4-6.5); ABSOLUTE LYMPH COUNT 1.4 /CUMM (1.2-3.4); ABSOLUTE MONOCYTE COUNT 0.4 /CUMM (0.10-0.60); BASOPHIL % 1.4 % (0.0-2.0); EOSINOPHIL % 5.1 % (0-5); GRANULOCYTE % 51.8 % (42.2-75.2); HEMATOCRIT 24.9 % (42-52); MEAN CORPUSCULAR HGB 23.1 PG (27.0-31.0); MEAN CORPUSCULAR HGB CONC 32.5 G/DL (33.0-37.0); MEAN CORPUSCULAR VOLUME 70.9 FL (80.0-94.0); PLATELET COUNT 292 /CUMM (130-400); RBC DISTRIBUTION WIDTH 18.1 % (11.5-14.5); RED BLOOD CELL CT 3.52 /CUMM (4.70-6.10); WHITE BLOOD CELL COUNT 4.4 /CUMM (4.8-10.8)
[2018-05-03 04:57] LABS: PTT 31 SEC (25-37)
[2018-05-03 06:38] VITALS: BP 110/80
--- NOTE | 2018-05-03 07:08 | PN-Observation ---
Observation Note Observation Note _ I have personally examined LACI ERWIN. him disposition is uncertain at this time. Before a determination can be made, he requires continued observation for the following reasons acute blodd loss anemia. Assessment/Plan Medical Assessment: Mr. 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 We will change back to BID in a.m if H&H remains stable Fe, ferritin, TIBC studies revealed iron deficiency We will consider IV dextran Appreciate urology recommendations Avoid Acetaminophen We will hold off pharmacologic DVT prophylaxis due to history of hemophilia We will hold off on mtz placement as per Uro We will continue home meds Heme recommendations appreciated We will transfer to [place] if condition worsens for better management of Hemophilia Code: Full Problem List: 1. Renal colic 2. Acute blood loss anemia 3. Flank pain Subjective Follow-up For: Left flank pain #Nonobstructing right calculus @ UVJ s/p cystoscopy-right uteroscopy and lithotripsy - POD 1 Acute blood loss anemia Subjective: Patient reports persistent pain in groin not controlled with current pain meds. He denies hematuria, epistaxis, gingival bleeding or BRBPR Review of Systems Constitutional: Reports: see HPI. Objective Last 24 Hrs of Vital Signs/I&O Vital Signs Date Time Temp Pulse Resp B/P B/P Pulse O2 O2 Flow FiO2 Mean Ox Delivery Rate 05/03 1346 97.4 82 18 120/76 98 Room Air 08 0818 62 110/80 06/08 0817 62 110/80 06/08 0638 98.0 62 20 110/80 96 Room Air 05/02 2221 97.9 99 18 128/98 98 Room Air 05/02 1845 98.0 82 18 140/74 98 Room Air Intake & Output 05/03 1600 05/03 0800 06/ 0000 Intake Total 1900 300 Output Total 350 200 Balance 1900 -350 100 Intake, IV 0 Intake, Oral 1900 300 Number 0 Bowel Movements Output, Urine 350 200 Patient 230 lb Weight Physical Exam General Appearance: Alert, Oriented X3, Cooperative, No Acute Distress Cardiovascular: Regular Rate, Normal S1, Normal S2 Lungs: Clear to Auscultation, Normal Air Movement Abdomen: Normal Bowel Sounds, Soft, No Tenderness Current Medications: Current Medications Sig/Antonia Start time Last Medication Dose Route Stop Time Status Admin Amlodipine Besylate 10 MG DAILY 05/03 900 AC 05/03 PO 0818 Duloxetine HCl 90 MG DAILY 05/03 900 AC 05/03 PO 0817 Hydromorphone HCl 1 MG Q4P PRN 05/03 0947 05/03 IV 1800 Hydromorphone HCl 0.4 MG Q6P PRN 05/02 1830 GA 05/03 IV 0620 Hydroxyzine HCl 50 MG BID 05/02 2100 05/03 PO 0818 Lisinopril 20 MG DAILY 05/03 900 05/03 PO 0817 Morphine Sulfate 2 MG ONCE ONE 05/02 2230 DC 05/02 IV 05/02 2231 2240 Ondansetron HCl 4 MG Q6P PRN 05/02 1730 AC IV Patient Medication 1 ED ONE ONE 05/03 0930 GA Teaching ED 05/03 931 Ramelteon 8 MG ONCE ONE 05/02 2230 DC 05/02 PO 05/02 2231 2240 Trazodone HCl 100 MG QPM 05/02 2100 05/02 PO 2233 Last 24 Hrs of Labs/Mics: Laboratory Tests 05/03/18 1425: CBC w Diff NO MAN DIFF REQ, RBC 3.68 L, MCV 72.1 L, MCH 23.1 L, MCHC 32.1 L, RDW 17.5 H, MPV 7.7, Gran % 59.6, Lymphocytes % 24.7, Monocytes % 10.0 H, Eosinophils % 4.3, Basophils % 1.4, Absolute Granulocytes 2.3, Absolute Lymphocytes 1.0 L, Absolute Monocytes 0.4, Absolute Eosinophils 0.2, Absolute Basophils 0.1 05/03/18 0430: Anion Gap 9, Estimated GFR > 60, BUN/Creatinine Ratio 10.0, APTT 31, CBC w Diff NO MAN DIFF REQ, RBC 3.52 L, MCV 70.9 L, MCH 23.1 L, MCHC 32.5 L, RDW 18.1 H, MPV 7.0 L, Gran % 51.8, Lymphocytes % 31.4, Monocytes % 10.3 H, Eosinophils % 5.1 H, Basophils % 1.4, Absolute Granulocytes 2.3, Absolute Lymphocytes 1.4, Absolute Monocytes 0.4, Absolute Eosinophils 0.2, Absolute Basophils 0.1 05/02/18 2100: CBC w Diff Cancelled, WBC Cancelled, RBC Cancelled, Hgb Cancelled, Hct Cancelled , MCV Cancelled, MCH Cancelled, MCHC Cancelled, RDW Cancelled, Plt Count Cancelled, MPV Cancelled
--- NOTE | 2018-05-03 08:15 | RADIOLOGY REPORT ---
EXAMINATION: CR ABDOMEN/INTRAOPERATIVE FLUOROSCOPY CLINICAL INDICATION: Right stone removal. COMPARISON: None TECHNIQUE/FINDINGS: Fluoroscopic equipment was dedicated to the operating room for the performance of an intraoperative procedure. Single spot film was acquired and is archived in PACS. Please refer to operative notes for procedural detail. FLUOROSCOPY TIME: 0.1 minutes. IMPRESSION: Administrative dictation for intraoperative fluoroscopy and image archiving in PACS. Please refer to operative notes for details.
--- NOTE | 2018-05-03 09:09 | Cons- Hematology ---
General Information and HPI Consulting Request Date of Consult: 05/03/18 Requested By: Jose M James MD Reason for Consult: Hemophilia A Source of Information: patient, old records Exam Limitations: no limitations History of Present Illness: Mr. 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 He also noted hematuria. For two days prior to admission, he has worsening pain and hematuria. On admission, he underwent cystoscopy-right uteroscopy and lithotripsy by Dr. Barrett. He did well with the procedure. He states bleeding has stopped. He feels well. He is giving himself his factors twice daily. He gives himself 3800 units each dose. He states he gave himself a double dose prior to the procedure. He was diagnosed in 2013. He moved from [place] in October 2017. He has not establish care with a hemophilia center as of yet. He has not had any recent bleeding except for the hematuria. Allergies/Medications Allergies: Coded Allergies: acetaminophen (Severe, LIVER BLEEDING 01/20/18) adhesive (Intermediate, SKIN IRRITATION 02/06/18) NSAIDS (Non-Steroidal Anti-Inflamma (HEMOPHILIA 01/11/18) fentanyl (RASH/BURNING 03/10/18) Home Med List: Amlodipine Besylate 10 MG TABLET 1 TAB PO DAILY BP (Reported) Ascorbate Calcium (Vitamin C) (Unknown Strength) TABLET (Unknown Dose) PO DAILY SUPPLEMENT (Reported) Cholecalciferol (Vitamin D3) (Vitamin D) (Unknown Strength) TABLET (Unknown Dose) PO DAILY SUPPLEMENT (Reported) Duloxetine Hydrochloride (Cymbalta) 30 MG CAPSULE.DR 90 MG PO DAILY NERVE PAIN (Reported) Hydroxyzine HCl (hydrOXYzine HCl) 25 MG TABLET 2 TAB PO BID ANXIETY (Reported ) Lisinopril 20 MG TABLET 1 TAB PO DAILY BP (Reported) Methocarbamol (Robaxin-750) 750 MG TABLET 1 TAB PO TID PRN PAIN Ondansetron (Zofran Odt) 4 MG TAB.RAPDIS 1 TAB SL TID Nausea and Vomiting Suvorexant (Belsomra) 20 MG TABLET 1 TAB PO QPM SLEEP (Reported) Trazodone HCl 100 MG TABLET 1 TAB PO QPM SLEEP (Reported) Vitamin B Complex 1 EACH CAPSULE 1 CAP PO DAILY SUPPLEMENT (Reported) Current Medications: Current Medications Sig/Antonia Start time Last Medication Dose Route Stop Time Status Admin Amlodipine Besylate 10 MG DAILY 05/03 900 AC 05/03 PO 0818 Duloxetine HCl 90 MG DAILY 05/03 900 AC 05/03 PO 0817 Fentanyl Citrate 200 MCG .STK-MED ONE 05/02 1643 DC IM 05/02 1644 Hydromorphone HCl 0.4 MG Q6P PRN 05/02 1830 AC 05/03 IV 0620 Hydroxyzine HCl 50 MG BID 05/02 2100 AC 05/03 PO 0818 Lisinopril 20 MG DAILY 05/03 900 AC 05/03 PO 0817 Morphine Sulfate 2 MG ONCE ONE 05/02 2230 DC 05/02 IV 05/02 2231 2240 Morphine Sulfate 0 .STK-MED ONE 05/02 1150 DC .ROUTE Morphine Sulfate 8 MG ONCE ONE 05/02 1145 DC 05/02 IV 05/02 1146 1146 Morphine Sulfate 2 MG ONCE ONE 05/02 0930 CAN IV 05/02 0931 Morphine Sulfate 0 .STK-MED ONE 05/02 0909 DC .ROUTE Morphine Sulfate 6 MG ONCE ONE 05/02 0900 DC 05/02 IV 05/02 0901 0910 Ondansetron HCl 4 MG Q6P PRN 05/02 1730 AC IV Ondansetron HCl 0 .STK-MED ONE 05/02 0909 DC .ROUTE Ondansetron HCl 4 MG ONCE ONE 05/02 0900 DC 05/02 IV 05/02 0901 0910 Ramelteon 8 MG ONCE ONE 05/02 2230 DC / PO 05/02 2231 2240 Sodium Chloride 1,000 ML BOLUS ONE 05/02 1145 DC / IV 05/02 1244 1146 Sodium Chloride 1,000 ML BOLUS ONE 05/02 0900 DC 05/02 IV 05/02 0959 0910 Trazodone HCl 100 MG QPM 05/02 2100 AC 05/02 PO 2233 Review of Systems Review of Systems Constitutional: Denies: chills, fever, malaise. EENTM: Denies: blurred vision, double vision. Cardiovascular: Denies: chest pain. Respiratory: Denies: cough, hemoptysis, short of breath. Genitourinary: Reports: hematuria (resolved). Musculoskeletal: Denies: joint pain, joint swelling. Neurological/Psychological: Denies: confusion. Hematologic/Endocrine: Reports: bruising, bleeding. 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 Ambulation: independent IADLs Independent: shopping, housework, finances, food prep, telephone, transportation , medication admin. Exam & Diagnostic Data Vital Signs and I&O Vital Signs Date Time Temp Pulse Resp B/P B/P Pulse O2 O2 Flow FiO2 Mean Ox Delivery Rate 05/03 0818 62 110/80 /08 0817 62 110/80 06/08 0638 98.0 62 20 110/80 96 Room Air 06/07 2221 97.9 99 18 128/98 98 Room Air 06/07 1845 98.0 82 18 140/74 98 Room Air 06/07 1436 98.2 93 18 127/91 96 06/07 0918 98 Room Air Intake & Output /08 1600 06/08 0800 06/08 0000 Intake Total 300 Output Total 350 200 Balance -350 100 Intake, Oral 300 Output, Urine 350 200 Patient 104.326 kg Weight Physical Exam General Appearance: well developed/nourished, no apparent distress, alert, awake , comfortable Head: atraumatic, normal appearance Eyes: Bilateral: PERRL, EOMI. Ears, Nose, Throat: normal pharynx, normal ENT inspection Respiratory: normal breath sounds, chest non-tender, no respiratory distress Cardiovascular: regular rate/rhythm Gastrointestinal: normal bowel sounds, soft, non-tender, no organomegaly Extremities: normal inspection Neurologic/Psych: alert, oriented x 3 Cranial Nerves: normal hearing, normal speech Skin: normal color, warm/dry Last 48 Hours of Lab Results: Laboratory Tests 05/03 05/02 0430 2100 Chemistry Sodium (137 - 145 mmol/L) 142 Potassium (3.5 - 5.1 mmol/L) 3.8 Chloride (98 - 107 mmol/L) 106 Carbon Dioxide (22 - 30 mmol/L) 27 Anion Gap (5 - 16) 9 BUN (9 - 20 mg/dL) 8 L Creatinine (0.7 - 1.2 mg/dL) 0.8 Estimated GFR (>60 ml/min) > 60 BUN/Creatinine Ratio (7 - 25 %) 10.0 Coagulation APTT (25 - 37 SEC) 31 Hematology CBC w Diff NO MAN DIFF REQ Cancelled WBC (4.8 - 10.8 /CUMM) 4.4 L Cancelled RBC (4.70 - 6.10 /CUMM) 3.52 L Cancelled Hgb (14.0 - 18.0 G/DL) 8.1 L Cancelled Hct (42 - 52 %) 24.9 L Cancelled MCV (80.0 - 94.0 FL) 70.9 L Cancelled MCH (27.0 - 31.0 PG) 23.1 L Cancelled MCHC (33.0 - 37.0 G/DL) 32.5 L Cancelled RDW (11.5 - 14.5 %) 18.1 H Cancelled Plt Count (130 - 400 /CUMM) 292 Cancelled MPV (7.4 - 10.4 FL) 7.0 L Cancelled Gran % (42.2 - 75.2 %) 51.8 Lymphocytes % (20.5 - 51.1 %) 31.4 Monocytes % (1.7 - 9.3 %) 10.3 H Eosinophils % (0 - 5 %) 5.1 H Basophils % (0.0 - 2.0 %) 1.4 Absolute Granulocytes (1.4 - 6.5 /CUMM) 2.3 Absolute Lymphocytes (1.2 - 3.4 /CUMM) 1.4 Absolute Monocytes (0.10 - 0.60 /CUMM) 0.4 Absolute Eosinophils (0.0 - 0.7 /CUMM) 0.2 Absolute Basophils (0.0 - 0.2 /CUMM) 0.1 05/02 05/02 1750 1055 Hematology CBC w Diff NO MAN DIFF REQ WBC (4.8 - 10.8 /CUMM) 4.9 RBC (4.70 - 6.10 /CUMM) 3.95 L Hgb (14.0 - 18.0 G/DL) 9.0 L Hct (42 - 52 %) 28.2 L MCV (80.0 - 94.0 FL) 71.5 L MCH (27.0 - 31.0 PG) 22.8 L MCHC (33.0 - 37.0 G/DL) 31.9 L RDW (11.5 - 14.5 %) 17.9 H Plt Count (130 - 400 /CUMM) 334 MPV (7.4 - 10.4 FL) 7.3 L Gran % (42.2 - 75.2 %) 58.5 Lymphocytes % (20.5 - 51.1 %) 26.6 Monocytes % (1.7 - 9.3 %) 10.4 H Eosinophils % (0 - 5 %) 3.5 Basophils % (0.0 - 2.0 %) 1.0 Absolute Granulocytes (1.4 - 6.5 /CUMM) 2.9 Absolute Lymphocytes (1.2 - 3.4 /CUMM) 1.3 Absolute Monocytes (0.10 - 0.60 /CUMM) 0.5 Absolute Eosinophils (0.0 - 0.7 /CUMM) 0.2 Absolute Basophils (0.0 - 0.2 /CUMM) 0 Urines Urine Color (YEL,AMB,STR) BLDY H Urine Clarity (CLEAR) CLDY H Urine pH (5.0 - 8.0) 6.5 Ur Specific Converse (1.001 - 1.035) 1.025 Urine Protein (NEG,<30 MG/DL) 30 H Urine Ketones (NEG) NEG Urine Nitrite (NEG) NEG Urine Bilirubin (NEG) NEG Urine Urobilinogen (0.1 - 1.0 EU/dl) 0.2 Ur Leukocyte Esterase (NEG) TRACE H Ur Microscopic SEDIMENT EXAMINED Urine RBC (0 - 5 /HPF) >75 H Urine WBC (0 - 2 /HPF) RARE Urine Bacteria (NEG/NONE) RARE H Urine Hemoglobin (NEG) LARGE H Urine Glucose (N MG/DL) 250 H 06/07 0910 Chemistry Sodium (137 - 145 mmol/L) 143 Potassium (3.5 - 5.1 mmol/L) 4.0 Chloride (98 - 107 mmol/L) 109 H Carbon Dioxide (22 - 30 mmol/L) 23 Anion Gap (5 - 16) 12 BUN (9 - 20 mg/dL) 6 L Creatinine (0.7 - 1.2 mg/dL) 0.7 Estimated GFR (>60 ml/min) > 60 BUN/Creatinine Ratio (7 - 25 %) 8.6 Glucose (65 - 99 mg/dL) 147 H Calcium (8.4 - 10.2 mg/dL) 9.7 Iron (49 - 181 ug/dL) 41 L TIBC (261 - 462 ug/dL) 504 H Ferritin (17.9 - 464 ng/mL) 6.7 L Total Bilirubin (0.2 - 1.3 mg/dL) 0.5 AST (17 - 59 U/L) 31 ALT (21 - 72 U/L) 38 Alkaline Phosphatase (< 127 U/L) 73 Total Protein (6.3 - 8.2 g/dL) 6.3 Albumin (3.5 - 5.0 g/dL) 3.6 Globulin (1.9 - 4.2 gm/dL) 2.7 Albumin/Globulin Ratio (1.1 - 2.2 %) 1.3 Coagulation PT (9.4 - 12.5 SEC) 11.1 INR (0.90 - 1.17) 1.02 APTT (25 - 37 SEC) 39 H Hematology CBC w Diff NO MAN DIFF REQ WBC (4.8 - 10.8 /CUMM) 5.4 RBC (4.70 - 6.10 /CUMM) 4.59 L Hgb (14.0 - 18.0 G/DL) 10.6 L Hct (42 - 52 %) 32.9 L MCV (80.0 - 94.0 FL) 71.7 L MCH (27.0 - 31.0 PG) 23.2 L MCHC (33.0 - 37.0 G/DL) 32.3 L RDW (11.5 - 14.5 %) 17.7 H Plt Count (130 - 400 /CUMM) 398 MPV (7.4 - 10.4 FL) 7.3 L Gran % (42.2 - 75.2 %) 69.1 Lymphocytes % (20.5 - 51.1 %) 15.8 L Monocytes % (1.7 - 9.3 %) 10.1 H Eosinophils % (0 - 5 %) 3.7 Basophils % (0.0 - 2.0 %) 1.3 Absolute Granulocytes (1.4 - 6.5 /CUMM) 3.7 Absolute Lymphocytes (1.2 - 3.4 /CUMM) 0.8 L Absolute Monocytes (0.10 - 0.60 /CUMM) 0.5 Absolute Eosinophils (0.0 - 0.7 /CUMM) 0.2 Absolute Basophils (0.0 - 0.2 /CUMM) 0.1 Retic Count (0.5 - 2.0 %) 2.24 H Assessment/Plan Assessment: Mr. 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 On admission, he underwent cystoscopy-right uteroscopy and lithotripsy by Dr. Barrett. He did well with the procedure. He states bleeding has stopped. Blood work have demonstrated a worsening hemoglobin and hematocrit. On admission, his hematocrit was 32.9. It is currently 24.9. Hemoglobin is 8.1 at the moment. He is getting his factor twice daily. It is unclear with his hemophilia history. It is likely he has severe hemophilia given the need for twice a day prophylactic dosing. He is at very high risk of bleeding. Standard dosing would be 50 units/kg (100% dosing). Subsequent dosing can usually be 25 units/kg every 8 hours. With severe bleeding, he will need 50 units/kg (100%) for subsequent dosing. He is taking 3800 units per dose. This is more than the 25 units/kg for his weight. He can use the 3800 units dosing. He will take it 3 times a day until bleeding stop. He will decrease to his home dosing afterward. He will need to be monitored closely. He will need every 8 hours dosing for at least 2-3 days and continued if still bleeding. He will go back down to his prophylactic dosing after. If he bleeds, he will need to be transferred to [facility] for further management with factors. He needs to establish care with hemophilia center in [facility] or [facility] Recommendations: Hemophilia A: -monitor closely for bleeding -very low threshold for transfer to higher level of care -increase home prophylactic factor VIII dosing to 3 times a day until stabilized -may go back to prophylactic dosing once he is not bleeding -need to establish care with hemophilia center ([facility] or [facility]) Problem List: 1. Hemophilia 2. Acute blood loss anemia Other Findings/Comments: Please call [phone] with any questions or concerns. Consult Acknowledgment - Thank you for your consult request.
--- NOTE | 2018-05-03 10:05 | PN- Urology ---
Surgical Brief Attending Note Brief Attending Note: Pt c/o persistent pain but to a diminished degree: Gross hematuria much drive in tell[place] this am and pt voiding without difficulty: vss afebrile. no cvat bilat. Plan is DC home when OK with medicine service (labs pending), with pain meds. F/u renal US in 4-6 weeks as outpatient before f/u visit with me.
--- NOTE | 2018-05-03 11:25 | Patient Discharge Instructions ---
Discharge Instructions General Discharge Information You were seen/treated for: Renal stones Anemia You had these procedures: Lithotripsy Special Instructions: Please make sure to have a renal ultrasound in 4-6 weeks as an outpatient before f/u Urology-Dr. Barrett visit Follow up with Dr. Barrett within 4-6 weeks Follow up with [facility]-Dr Redman within 1 week of discharge Diet Continue normal diet: Yes Activity Full Activity/No Limits: Yes Acute Coronary Syndrome Inclusion Criteria At DC or during hospital stay patient has or had the following: ACS DIAGNOSIS No Discharge Core Measures Meds if any: Prescribed or Continued at Discharge Meds if any: NOT Prescribed or Continued at Discharge Congestive Heart Failure Inclusion Criteria At DC or during hospital stay patient has or had the following: CHF DIAGNOSIS No Discharge Core Measures Meds if any: Prescribed or Continued at Discharge Meds if any: NOT Prescribed or Continued at Discharge Cerebrovascular accident Inclusion Criteria At DC or during hospital stay patient has or had the following: CVA/TIA Diagnosis No Discharge Core Measures Meds if any: Prescribed or Continued at Discharge Meds if any: NOT Prescribed or Continued at Discharge Venous thromboembolism Inclusion Criteria VTE Diagnosis No VTE Type NONE VTE Confirmed by (Test) NONE Discharge Core Measures - Per Current guidelines, there needs to be overlap - treatment for the first 5 days of Warfarin therapy. - If discharged on Warfarin prior to 5 days of - overlap therapy, the patient will need to be - assessed for post discharge needs including - *Post discharge parental anticoagulation - *Warfarin and/or parental anticoagulation education - *Follow up date to check INR post discharge At least 5 days overlap therapy as Inpatient No Meds if any: Prescribed or Continued at Discharge Note: Overlap Therapy is Warfarin and Anticoagulant Meds if any: NOT Prescribed or Continued at Discharge
--- NOTE | 2018-05-03 11:41 | PN- Att Addend ---
Attending Addendum Attending Brief Note Patient seen and examined, was continuing of excruciating pain in the right groin. Pt is s/p cystoscopy: right ureteroscopy, laser litho.of ureter stone pod #1 today. Vital Signs Date Time Temp Pulse Resp B/P B/P Pulse O2 O2 Flow FiO2 Mean Ox Delivery Rate 05/03 818 62 110/80 /08 0817 62 110/80 /08 0638 98.0 62 20 110/80 96 Room Air 05/02 2221 97.9 99 18 128/98 98 Room Air / 1845 98.0 82 18 140/74 98 Room Air / 1436 98.2 93 18 127/91 96 on exam; aox3, mild distress 2/2 to pain. cv; s1, s2, rrr resp; clear abd; soft, nt, bs+ (says it does not hurt on palpation) ext; no edema Laboratory Tests 05/03 05/02 0430 2100 Chemistry Sodium (137 - 145 mmol/L) 142 Potassium (3.5 - 5.1 mmol/L) 3.8 Chloride (98 - 107 mmol/L) 106 Carbon Dioxide (22 - 30 mmol/L) 27 Anion Gap (5 - 16) 9 BUN (9 - 20 mg/dL) 8 L Creatinine (0.7 - 1.2 mg/dL) 0.8 Estimated GFR (>60 ml/min) > 60 BUN/Creatinine Ratio (7 - 25 %) 10.0 Coagulation APTT (25 - 37 SEC) 31 Hematology CBC w Diff NO MAN DIFF REQ Cancelled WBC (4.8 - 10.8 /CUMM) 4.4 L Cancelled RBC (4.70 - 6.10 /CUMM) 3.52 L Cancelled Hgb (14.0 - 18.0 G/DL) 8.1 L Cancelled Hct (42 - 52 %) 24.9 L Cancelled MCV (80.0 - 94.0 FL) 70.9 L Cancelled MCH (27.0 - 31.0 PG) 23.1 L Cancelled MCHC (33.0 - 37.0 G/DL) 32.5 L Cancelled RDW (11.5 - 14.5 %) 18.1 H Cancelled Plt Count (130 - 400 /CUMM) 292 Cancelled MPV (7.4 - 10.4 FL) 7.0 L Cancelled Gran % (42.2 - 75.2 %) 51.8 Lymphocytes % (20.5 - 51.1 %) 31.4 Monocytes % (1.7 - 9.3 %) 10.3 H Eosinophils % (0 - 5 %) 5.1 H Basophils % (0.0 - 2.0 %) 1.4 Absolute Granulocytes (1.4 - 6.5 /CUMM) 2.3 Absolute Lymphocytes (1.2 - 3.4 /CUMM) 1.4 Absolute Monocytes (0.10 - 0.60 /CUMM) 0.4 Absolute Eosinophils (0.0 - 0.7 /CUMM) 0.2 Absolute Basophils (0.0 - 0.2 /CUMM) 0.1 05/02 1750 Hematology CBC w Diff NO MAN DIFF REQ WBC (4.8 - 10.8 /CUMM) 4.9 RBC (4.70 - 6.10 /CUMM) 3.95 L Hgb (14.0 - 18.0 G/DL) 9.0 L Hct (42 - 52 %) 28.2 L MCV (80.0 - 94.0 FL) 71.5 L MCH (27.0 - 31.0 PG) 22.8 L MCHC (33.0 - 37.0 G/DL) 31.9 L RDW (11.5 - 14.5 %) 17.9 H Plt Count (130 - 400 /CUMM) 334 MPV (7.4 - 10.4 FL) 7.3 L Gran % (42.2 - 75.2 %) 58.5 Lymphocytes % (20.5 - 51.1 %) 26.6 Monocytes % (1.7 - 9.3 %) 10.4 H Eosinophils % (0 - 5 %) 3.5 Basophils % (0.0 - 2.0 %) 1.0 Absolute Granulocytes (1.4 - 6.5 /CUMM) 2.9 Absolute Lymphocytes (1.2 - 3.4 /CUMM) 1.3 Absolute Monocytes (0.10 - 0.60 /CUMM) 0.5 Absolute Eosinophils (0.0 - 0.7 /CUMM) 0.2 Absolute Basophils (0.0 - 0.2 /CUMM) 0 A/P; 47 y/o M with pmh sig for hemophilia A (dx 2013 after requiring multiple transfusion following a Fatimah-en-Y) on factor VIII, gastric bypass (2011), liver hematoma, hypertension, anxiety, depression, migraines, recurrent nephrolithiasis presented with left flank pain, found to have right sided nephrolithiasis/ureteral stone status post cystoscopy: right ureteroscopy, laser litho.of ureter stone pod #1 today. There is a drop in his H&H today. Appreciate input from hematology and urology. Patient currently on factor VIII. The dose will be adjusted per hematology recommendations. Pain management is done with Dilaudid IV. Continue the rest of medications. We will continue to monitor his H&H closely. If there is any further drop but if there is any evidence of active treatment patient will need to be transferred to the high level of care. DVt px; ALPS.
[2018-05-03 13:46] VITALS: BP 120/76
[2018-05-03 15:11] LABS: ABSOLUTE BASOPHIL COUNT 0.1 /CUMM (0.0-0.2); ABSOLUTE EOSINOPHIL COUNT 0.2 /CUMM (0.0-0.7); ABSOLUTE GRANULOCYTE CT 2.3 /CUMM (1.4-6.5); ABSOLUTE MONOCYTE COUNT 0.4 /CUMM (0.10-0.60); BASOPHIL % 1.4 % (0.0-2.0); EOSINOPHIL % 4.3 % (0-5); GRANULOCYTE % 59.6 % (42.2-75.2); HEMATOCRIT 26.6 % (42-52); MEAN CORPUSCULAR HGB 23.1 PG (27.0-31.0); MEAN CORPUSCULAR HGB CONC 32.1 G/DL (33.0-37.0); MEAN CORPUSCULAR VOLUME 72.1 FL (80.0-94.0); MEAN PLATELET VOLUME 7.7 FL (7.4-10.4); PLATELET COUNT 310 /CUMM (130-400); RBC DISTRIBUTION WIDTH 17.5 % (11.5-14.5); RED BLOOD CELL CT 3.68 /CUMM (4.70-6.10); WHITE BLOOD CELL COUNT 3.9 /CUMM (4.8-10.8)
[2018-05-03 20:06] LABS: ABSOLUTE BASOPHIL COUNT 0.1 /CUMM (0.0-0.2); ABSOLUTE EOSINOPHIL COUNT 0.2 /CUMM (0.0-0.7); ABSOLUTE GRANULOCYTE CT 2.4 /CUMM (1.4-6.5); ABSOLUTE MONOCYTE COUNT 0.4 /CUMM (0.10-0.60); BASOPHIL % 1.3 % (0.0-2.0); EOSINOPHIL % 4.4 % (0-5); GRANULOCYTE % 59.3 % (42.2-75.2); MEAN CORPUSCULAR HGB 23.1 PG (27.0-31.0); MEAN CORPUSCULAR HGB CONC 32.4 G/DL (33.0-37.0); MEAN CORPUSCULAR VOLUME 71.4 FL (80.0-94.0); MEAN PLATELET VOLUME 7.5 FL (7.4-10.4); PLATELET COUNT 295 /CUMM (130-400); RBC DISTRIBUTION WIDTH 17.6 % (11.5-14.5); RED BLOOD CELL CT 3.79 /CUMM (4.70-6.10)
[2018-05-03 21:33] VITALS: BP 139/87
[2018-05-04 06:00] VITALS: BP 118/58
[2018-05-04 08:34] LABS: ABSOLUTE BASOPHIL COUNT 0 /CUMM (0.0-0.2); ABSOLUTE EOSINOPHIL COUNT 0.2 /CUMM (0.0-0.7); ABSOLUTE GRANULOCYTE CT 2.2 /CUMM (1.4-6.5); ABSOLUTE LYMPH COUNT 1.2 /CUMM (1.2-3.4); ABSOLUTE MONOCYTE COUNT 0.4 /CUMM (0.10-0.60); EOSINOPHIL % 4.4 % (0-5); GRANULOCYTE % 54.3 % (42.2-75.2); HEMATOCRIT 25.5 % (42-52); MEAN CORPUSCULAR HGB 23.2 PG (27.0-31.0); MEAN CORPUSCULAR HGB CONC 32.3 G/DL (33.0-37.0); MEAN CORPUSCULAR VOLUME 71.7 FL (80.0-94.0); MEAN PLATELET VOLUME 7.4 FL (7.4-10.4); PLATELET COUNT 295 /CUMM (130-400); RED BLOOD CELL CT 3.55 /CUMM (4.70-6.10); WHITE BLOOD CELL COUNT 4.1 /CUMM (4.8-10.8)
--- NOTE | 2018-05-04 08:35 | PN-Observation ---
Observation Note Observation Note _ I have personally examined LACI ERWIN. him disposition is uncertain at this time. Before a determination can be made, he requires continued observation for the following reasons [bleeding]. Assessment/Plan Medical Assessment: Mr. Erwin is a 47 year old male with PMH of hemophilia A (dx 2014 after requiring multiple transfusion following a Fatimah-en-Y) on factor VIII, gastric bypass (2011), liver hematoma, hypertension, anxiety, depression, migraines, recurrent nephrolithiasis who presented to the ED with severe left flank pain now in the PACU s/p cystoscopy-right uteroscopy and lithotripsy #Left flank pain #Nonobstructing right calculus @ [facility] s/p cystoscopy-right uteroscopy and lithotripsy - POD 0 #Acute blood loss anemia Plan: Previously on IV factor VIII BID but changed to TID as per Heme given his drop in H&H. We will change back to BID once H&H is more stable. There has been on acute drop since yesterday. Fe, ferritin, TIBC studies revealed iron deficiency Consider IV dextran Appreciate urology recommendations Avoid Acetaminophen and NSAIDS Pain control with PO dilaudidd 4mg q6-8prn. Patient states this is the regimen he takes at home which works for him. Once pain is controlled, he can likely be discharged. We will continue home meds Heme recommendations appreciated We will transfer to [facility] if condition worsens for better management of Hemophilia Diet: heart healthy diet Code: Full Problem List: 1. Hemophilia Subjective Follow-up For: hemophilia flank pain Subjective: patient seen and examined. States he did not get much sleep last night due to flank pain. He says the IV dilaudidd helps. He takes PO at home which does provide some relief. Review of Systems Constitutional: Reports: no symptoms. Objective Last 24 Hrs of Vital Signs/I&O Vital Signs Date Time Temp Pulse Resp B/P B/P Pulse O2 O2 Flow FiO2 Mean Ox Delivery Rate 05/04 829 76 122/84 05/04 828 76 122/84 05/04 600 97.6 87 18 118/58 97 Room Air 05/03 2133 98.3 77 18 139/87 99 05/03 1346 97.4 82 18 120/76 98 Room Air Intake & Output 05/04 1600 05/04 0800 05/04 0000 Intake Total 240 400 Output Total 550 Balance 240 -150 Intake, Oral 240 400 Output, Urine 550 Physical Exam General Appearance: Alert, Oriented X3, Cooperative, Moderate Distress Skin: No Rashes, No Breakdown Skin Temp/Moisture Exam: Warm/Dry Sepsis Skin Exam (color): Normal for Ethnicity HEENT: Atraumatic Cardiovascular: Normal S1, Normal S2, No Murmurs Lungs: Clear to Auscultation, Normal Air Movement Abdomen: Soft, No Tenderness Neurological: Normal Speech Extremities: No Edema Last 24 Hrs of Labs/Mics: Laboratory Tests 05/04/18 0730: CBC w Diff NO MAN DIFF REQ, RBC 3.55 L, MCV 71.7 L, MCH 23.2 L, MCHC 32.3 L, RDW 18.0 H, MPV 7.4, Gran % 54.3, Lymphocytes % 30.0, Monocytes % 10.3 H, Eosinophils % 4.4, Basophils % 1.0, Absolute Granulocytes 2.2, Absolute Lymphocytes 1.2, Absolute Monocytes 0.4, Absolute Eosinophils 0.2, Absolute Basophils 0 05/03/18 1925: CBC w Diff NO MAN DIFF REQ, RBC 3.79 L, MCV 71.4 L, MCH 23.1 L, MCHC 32.4 L, RDW 17.6 H, MPV 7.5, Gran % 59.3, Lymphocytes % 26.1, Monocytes % 8.9, Eosinophils % 4.4, Basophils % 1.3, Absolute Granulocytes 2.4, Absolute Lymphocytes 1.0 L, Absolute Monocytes 0.4, Absolute Eosinophils 0.2, Absolute Basophils 0.1 05/03/18 1425: CBC w Diff NO MAN DIFF REQ, RBC 3.68 L, MCV 72.1 L, MCH 23.1 L, MCHC 32.1 L, RDW 17.5 H, MPV 7.7, Gran % 59.6, Lymphocytes % 24.7, Monocytes % 10.0 H, Eosinophils % 4.3, Basophils % 1.4, Absolute Granulocytes 2.3, Absolute Lymphocytes 1.0 L, Absolute Monocytes 0.4, Absolute Eosinophils 0.2, Absolute Basophils 0.1
--- NOTE | 2018-05-04 08:45 | PN- Att Addend ---
Attending Addendum Attending Brief Note Patient seen and examined. Plan of care discussed with the medical team and the patient. Available lab work and radiology test reports were reviewed. Pt complains of severe left sided flank and groin pain radiating to genitalia. No fever chills and not nausea or vomiting. Denies any fever or chills. Assessment: * Rt nephrolithiasis/ ureteral stones, s/p cysto and lithotripsy * left flank pain- uncontrolled; prior imaging did not show any ureteric stone * hx of hemophilia Plan * Since his pain is not well controlled; change the dilaudid to 2mg, every 3 hours and then escalate if needed * if pain is persistent on left side, we may need reimaging to rule out left ureteric stone Exam: General: Patient awake alert oriented without any distress CVS: S1 plus S2 without any murmur or gallops Chest: Few scattered crepitation without any wheeze. There is no respiratory distress. 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: Awake alert oriented without any focal neuro deficit and follows commands appropriately Extremities: No edema; no clubbing or cyanosis noted Current Medications Sig/Antonia Start time Last Medication Dose Route Stop Time Status Admin Amlodipine Besylate 10 MG DAILY 05/03 900 AC 05/04 PO 0828 Duloxetine HCl 90 MG DAILY 05/03 900 AC 05/04 PO 0824 Hydromorphone HCl 0.6 MG ONCE ONE 05/04 0015 DC 05/04 IV 05/04 0016 0040 Hydromorphone HCl 1 MG Q4P PRN 05/03 0947 AC 05/04 IV 0516 Hydromorphone HCl 0.4 MG Q6P PRN 05/02 1830 DC 05/03 IV 0620 Hydroxyzine HCl 50 MG BID 05/02 2100 AC 05/04 PO 0824 Lisinopril 20 MG DAILY 05/03 900 AC 05/04 PO 0829 Ondansetron HCl 4 MG Q6P PRN 05/02 1730 AC IV Oxycodone HCl 15 MG Q12 05/04 0015 DC 05/04 PO 0040 Patient Medication 1 ED ONE ONE 05/03 0930 DC Teaching ED 05/03 09 Trazodone HCl 100 MG QPM 05/02 2100 AC 05/03 PO 2205 Laboratory Tests 05/04/18 0730: CBC w Diff Pending, WBC Pending, RBC Pending, Hgb Pending, Hct Pending, MCV Pending, MCH Pending, MCHC Pending, RDW Pending, Plt Count Pending, MPV Pending 05/03/18 1925: CBC w Diff NO MAN DIFF REQ, RBC 3.79 L, MCV 71.4 L, MCH 23.1 L, MCHC 32.4 L, RDW 17.6 H, MPV 7.5, Gran % 59.3, Lymphocytes % 26.1, Monocytes % 8.9, Eosinophils % 4.4, Basophils % 1.3, Absolute Granulocytes 2.4, Absolute Lymphocytes 1.0 L, Absolute Monocytes 0.4, Absolute Eosinophils 0.2, Absolute Basophils 0.1 05/03/18 1425: CBC w Diff NO MAN DIFF REQ, RBC 3.68 L, MCV 72.1 L, MCH 23.1 L, MCHC 32.1 L, RDW 17.5 H, MPV 7.7, Gran % 59.6, Lymphocytes % 24.7, Monocytes % 10.0 H, Eosinophils % 4.3, Basophils % 1.4, Absolute Granulocytes 2.3, Absolute Lymphocytes 1.0 L, Absolute Monocytes 0.4, Absolute Eosinophils 0.2, Absolute Basophils 0.1 05/03/18 0430: Anion Gap 9, Estimated GFR > 60, BUN/Creatinine Ratio 10.0, APTT 31, CBC w Diff NO MAN DIFF REQ, RBC 3.52 L, MCV 70.9 L, MCH 23.1 L, MCHC 32.5 L, RDW 18.1 H, MPV 7.0 L, Gran % 51.8, Lymphocytes % 31.4, Monocytes % 10.3 H, Eosinophils % 5.1 H, Basophils % 1.4, Absolute Granulocytes 2.3, Absolute Lymphocytes 1.4, Absolute Monocytes 0.4, Absolute Eosinophils 0.2, Absolute Basophils 0.1 05/02/18 2100: CBC w Diff Cancelled, WBC Cancelled, RBC Cancelled, Hgb Cancelled, Hct Cancelled , MCV Cancelled, MCH Cancelled, MCHC Cancelled, RDW Cancelled, Plt Count Cancelled, MPV Cancelled 05/02/18 1750: CBC w Diff NO MAN DIFF REQ, RBC 3.95 L, MCV 71.5 L, MCH 22.8 L, MCHC 31.9 L, RDW 17.9 H, MPV 7.3 L, Gran % 58.5, Lymphocytes % 26.6, Monocytes % 10.4 H, Eosinophils % 3.5, Basophils % 1.0, Absolute Granulocytes 2.9, Absolute Lymphocytes 1.3, Absolute Monocytes 0.5, Absolute Eosinophils 0.2, Absolute Basophils 0 05/02/18 1055: Urine Color BLDY H, Urine Clarity CLDY H, Urine pH 6.5, Ur Specific [place] 1.025, Urine Protein 30 H, Urine Ketones NEG, Urine Nitrite NEG, Urine Bilirubin NEG, Urine Urobilinogen 0.2, Ur Leukocyte Esterase TRACE H, Ur Microscopic SEDIMENT EXAMINED, Urine RBC >75 H, Urine WBC RARE, Urine Bacteria RARE H, Urine Hemoglobin LARGE H, Urine Glucose 250 H 05/02/18 0910: Anion Gap 12, Estimated GFR > 60, BUN/Creatinine Ratio 8.6, Glucose 147 H, Calcium 9.7, Iron 41 L, TIBC 504 H, Ferritin 6.7 L, Total Bilirubin 0.5, AST 31, ALT 38, Alkaline Phosphatase 73, Total Protein 6.3, Albumin 3.6, Globulin 2.7, Albumin/Globulin Ratio 1.3, PT 11.1, INR 1.02, APTT 39 H, CBC w Diff NO MAN DIFF REQ, RBC 4.59 L, MCV 71.7 L, MCH 23.2 L, MCHC 32.3 L, RDW 17.7 H, MPV 7.3 L, Gran % 69.1, Lymphocytes % 15.8 L, Monocytes % 10.1 H, Eosinophils % 3.7, Basophils % 1.3, Absolute Granulocytes 3.7, Absolute Lymphocytes 0.8 L, Absolute Monocytes 0.5, Absolute Eosinophils 0.2, Absolute Basophils 0.1, Retic Count 2.24 H Microbiology 05/02 1055 URINE ROUT: Urine Culture - RES Vital Signs Date Time Temp Pulse Resp B/P B/P Pulse O2 O2 Flow FiO2 Mean Ox Delivery Rate 05/04 829 76 122/84 05/04 828 76 122/84 05/04 0600 97.6 87 18 118/58 97 Room Air 05/03 2133 98.3 77 18 139/87 99 05/03 1346 97.4 82 18 120/76 98 Room Air Intake & Output 05/04 1600 05/04 0800 05/04 0000 Intake Total 240 400 Output Total 550 Balance 240 -150 Intake, Oral 240 400 Output, Urine 550 Laboratory Tests 05/04 05/03 0730 1925 Hematology CBC w Diff NO MAN DIFF REQ NO MAN DIFF REQ WBC (4.8 - 10.8 /CUMM) 4.1 L 4.0 L RBC (4.70 - 6.10 /CUMM) 3.55 L 3.79 L Hgb (14.0 - 18.0 G/DL) 8.2 L 8.8 L Hct (42 - 52 %) 25.5 L 27.0 L MCV (80.0 - 94.0 FL) 71.7 L 71.4 L MCH (27.0 - 31.0 PG) 23.2 L 23.1 L MCHC (33.0 - 37.0 G/DL) 32.3 L 32.4 L RDW (11.5 - 14.5 %) 18.0 H 17.6 H Plt Count (130 - 400 /CUMM) 295 295 MPV (7.4 - 10.4 FL) 7.4 7.5 Gran % (42.2 - 75.2 %) 54.3 59.3 Lymphocytes % (20.5 - 51.1 %) 30.0 26.1 Monocytes % (1.7 - 9.3 %) 10.3 H 8.9 Eosinophils % (0 - 5 %) 4.4 4.4 Basophils % (0.0 - 2.0 %) 1.0 1.3 Absolute Granulocytes (1.4 - 6.5 /CUMM) 2.2 2.4 Absolute Lymphocytes (1.2 - 3.4 /CUMM) 1.2 1.0 L Absolute Monocytes (0.10 - 0.60 /CUMM) 0.4 0.4 Absolute Eosinophils (0.0 - 0.7 /CUMM) 0.2 0.2 Absolute Basophils (0.0 - 0.2 /CUMM) 0 0.1 05/03 1425 Hematology CBC w Diff NO MAN DIFF REQ WBC (4.8 - 10.8 /CUMM) 3.9 L RBC (4.70 - 6.10 /CUMM) 3.68 L Hgb (14.0 - 18.0 G/DL) 8.5 L Hct (42 - 52 %) 26.6 L MCV (80.0 - 94.0 FL) 72.1 L MCH (27.0 - 31.0 PG) 23.1 L MCHC (33.0 - 37.0 G/DL) 32.1 L RDW (11.5 - 14.5 %) 17.5 H Plt Count (130 - 400 /CUMM) 310 MPV (7.4 - 10.4 FL) 7.7 Gran % (42.2 - 75.2 %) 59.6 Lymphocytes % (20.5 - 51.1 %) 24.7 Monocytes % (1.7 - 9.3 %) 10.0 H Eosinophils % (0 - 5 %) 4.3 Basophils % (0.0 - 2.0 %) 1.4 Absolute Granulocytes (1.4 - 6.5 /CUMM) 2.3 Absolute Lymphocytes (1.2 - 3.4 /CUMM) 1.0 L Absolute Monocytes (0.10 - 0.60 /CUMM) 0.4 Absolute Eosinophils (0.0 - 0.7 /CUMM) 0.2 Absolute Basophils (0.0 - 0.2 /CUMM) 0.1
[2018-05-04 16:00] VITALS: BP 126/88
[2018-05-04 21:43] VITALS: BP 132/70
[2018-05-05 06:12] VITALS: BP 136/92
--- NOTE | 2018-05-05 08:07 | PN-Observation ---
Observation Note Observation Note _ I have personally examined LACI ERWIN. him disposition is uncertain at this time. Before a determination can be made, he requires continued observation for the following reasons [stable for discharge today]. Assessment/Plan Medical Assessment: Mr. 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 Fe, ferritin, TIBC studies revealed iron deficiency stable for discharge today. Avoid Acetaminophen and NSAIDS Pain control with PO dilaudidd 4mg q6-8prn. Patient states this is the regimen he takes at home which works for him. Andre discharge him on a few pills We will continue home meds Diet: heart healthy diet Code: Full Problem List: 1. Hemophilia Subjective Follow-up For: Hemophilia ureteral stones Subjective: patient feels better since yesterday. States he is okay to go home today since his pain is now under much better control Review of Systems Constitutional: Reports: no symptoms. Objective Last 24 Hrs of Vital Signs/I&O Vital Signs Date Time Temp Pulse Resp B/P B/P Pulse O2 O2 Flow FiO2 Mean Ox Delivery Rate 05/05 0612 98.0 73 20 136/92 99 05/04 2143 98.7 97 20 132/70 99 Room Air 05/04 1600 98.9 93 18 126/88 97 Room Air Intake & Output 05/05 1600 05/05 0800 05/05 0000 Intake Total 120 960 Output Total 200 Balance -80 960 Intake, Oral 120 960 Number 1 0 Bowel Movements Output, Urine 200 Physical Exam General Appearance: Alert, Oriented X3, Cooperative, Mild Distress Skin: No Rashes, No Breakdown Skin Temp/Moisture Exam: Warm/Dry Sepsis Skin Exam (color): Normal for Ethnicity HEENT: Atraumatic Cardiovascular: Normal S1, Normal S2, No Murmurs Lungs: Clear to Auscultation, Normal Air Movement Abdomen: Soft, No Tenderness Neurological: Normal Speech Extremities: No Edema
[2018-05-05] MEDS ORDERED: DILAUDID4 M1 PO (09:08)
[2018-05-05 09:10] VITALS: BP 136/92
--- NOTE | 2018-05-05 11:36 | PN- Att Addend ---
Attending Addendum Attending Brief Note Patient seen and examined. Plan of care discussed with the medical team and the patient. Available lab work and radiology test reports were reviewed. Pt is still complaining of left flank pain which is radiating to left groin. Pain intensity has decreased although this may be due to escalation of his Dilaudid dose yesterday. Patient denies any recent fever chills and not nausea or vomiting. Denies any fever or chills. Assessment: * Rt nephrolithiasis/ ureteral stones, s/p cysto and lithotripsy * left flank pain- uncontrolled; prior imaging did not show any ureteric stone, however his left side was not interrogated during recent cystoscopy, must rule out left-sided stone * hx of hemophilia Plan * Obtain a noncontrast CT scan of abdomen and pelvis to rule out left-sided stone or hydronephrosis * Continue dilaudid to 2mg, every 3 hours and then escalate if needed * If CT scan is unremarkable patient can be discharged home with oral Dilaudid Exam: General: Patient awake alert oriented without any distress CVS: S1 plus S2 without any murmur or gallops Chest: Few scattered crepitation without any wheeze. There is no respiratory distress. Abdomen: Soft non-tender, bowel sound present, no guarding or rebound; left flank tenderness is noted; also patient has a vague discomfort in left lower quadrant area PHARMACY DIRECTOR: Awake alert oriented without any focal neuro deficit and follows commands appropriately Extremities: No edema; no clubbing or cyanosis noted Current Medications Sig/Antonia Start time Last Medication Dose Route Stop Time Status Admin Amlodipine Besylate 10 MG DAILY 05/03 900 AC 05/05 PO 909 Duloxetine HCl 90 MG DAILY 05/03 900 AC 05/05 PO 09 Hydromorphone HCl 0.6 MG Q3P PRN 05/04 1700 DC 05/05 IV 0700 Hydromorphone HCl 1 MG Q3P PRN 05/04 1245 DC 05/04 IV 1305 Hydromorphone HCl 4 MG Q6P PRN 05/04 900 AC 05/05 PO 0915 Hydroxyzine HCl 50 MG BID 05/02 2100 AC 05/05 PO 0909 Lisinopril 20 MG DAILY 05/03 900 AC 05/05 PO 09 Ondansetron HCl 4 MG Q6P PRN 06/07 1730 AC IV Trazodone HCl 100 MG QPM 05/02 2100 AC 05/04 PO 2204 Vital Signs Date Time Temp Pulse Resp B/P B/P Pulse O2 O2 Flow FiO2 Mean Ox Delivery Rate 05/05 910 73 136/92 05/05 0910 136/92 05/05 612 98.0 73 20 136/92 99 05/04 2143 98.7 97 20 132/70 99 Room Air 05/04 1600 98.9 93 18 126/88 97 Room Air Intake & Output 05/05 1600 05/05 0800 05/05 0000 Intake Total 120 960 Output Total 200 Balance -80 960 Intake, Oral 120 960 Number 1 0 Bowel Movements Output, Urine 200
--- NOTE | 2018-05-05 13:21 | CT SCAN REPORT ---
EXAMINATION: CT ABDOMEN AND PELVIS WITHOUT CONTRAST CLINICAL INFORMATION: 47-year-old male with severe left flank pain radiating to the groin found to have a right distal ureteric 0.4 cm maximum dimension calculus on CT of the abdomen and pelvis done on 05/02/2018. The right distal ureteric calculus was subsequently removed on 05/02/2018. For follow-up. COMPARISON: 05/02/2018. TECHNIQUE: Multidetector volumetric imaging was performed from the superior aspect of the liver through the pubic symphysis. Sagittal and coronal reformatted images were obtained on the technologist's workstation. DLP: 894.39 mGy-cm FINDINGS: LUNG BASES: The visualized lung bases are unremarkable. LIVER, GALLBLADDER, AND BILIARY TREE: Previously documented subtle subdiaphragmatic hypodensity seen along the dome of the liver appear unchanged since 01/11/2018. The remainder of the liver appear unremarkable, unchanged. The gallbladder is not visualized presumably surgically absent. PANCREAS: Unremarkable. SPLEEN: Unremarkable. Accessory splenic tissue is noted, unchanged. ADRENAL GLANDS: Unremarkable. KIDNEYS AND URETERS: There is a persistent 1 to 2 mm nonobstructing punctate left renal inferior calyceal calculus identified, unchanged since the most recent prior study done on 05/02/2018. Multiple scattered hyperdensities are seen bilaterally at the corticomedullary junction, most consistent with medullary nephrocalcinosis, unchanged. The renal collecting system as well as both ureters appear decompressed. Previously documented 4 mm right distal ureteric calculus is no longer present, consistent with interim cystoscopic removal. BLADDER: Small amount of air is noted, consistent with recent cystoscopy and removal of right distal ureteric calculus. GASTROINTESTINAL TRACT: Postsurgical changes are noted within the stomach and proximal small bowel, unchanged. Significant fecal residual is noted within the large bowel. The appendix is visualized containing tiny appendicolith, otherwise unremarkable at right lower quadrant. No significant change. ABDOMINAL WALL: Presumed postsurgical changes are noted at left inguinal region, unchanged. LYMPH NODES: Normal. VASCULAR: Atherosclerotic disease is noted within the aorta and its branches. Retroaortic left renal vein is noted. PELVIC VISCERA: There is no pelvic mass present. There is no free fluid and/or free air present. OSSEOUS STRUCTURES: No suspicious lytic or sclerotic abnormality. IMPRESSION: 1. Previously documented 0.4 cm right distal ureteric calculus is no longer visualized, consistent with intermittent cystoscopic removal. Small amount of air pocket is noted within the urinary bladder, also consistent with recent cystoscopy. 2. No other significant change since prior study. Specifically, previously identified nonobstructing 0.2 cm left renal inferior calyceal calculus appears unchanged.
== END 2018-05-05 14:18 ==
LOC: ERH 08:34 → ER-OR 08:39 → 2NB 16:04 → PACUH 16:04 → ENRESERV 17:12 → ENTRNSPT 18:20 → EDTRNSPT 18:22 → EDTRNSPTSTS 18:22 → 2NB 18:34 → CMPTRNSPT 18:47 → 2NB 22:29 → ENPENDDIS 05-05 13:32 → 2NB 05-05 14:18
PROVIDERS: Dermatology; Physician Assistant; Student in an Organized Health Care Education/Training Program; Urology
DX: N20.1 Calculus of ureter (principal); R11.0 Nausea; R10.84 Generalized abdominal pain; D66 Hereditary factor VIII deficiency; Z98.84 Bariatric surgery status; Z87.442 Personal history of urinary calculi; F41.9 Anxiety disorder, unspecified
CPT/HCPCS: 36592; 74018; 74176; 76775; 81001; 82355; 82436; 87086; 96361; 96374; 96375; 96376; G0378; J1170; J2405